=== PATIENT | male | born 1955 | race Caucasian/White ===

== ENCOUNTER 2021-08-07 11:51 | Inpatient (IN) ==
--- NOTE | 2021-08-07 13:20 | Emergency Department Note ---
HPI General Chief complaint: Extremity Problem,Nontraumatic Stated complaint: right heel pain Time Seen by Provider: 08/07/21 12:01 Source: patient Mode of arrival: wheelchair Limitations: no limitations History of Present Illness HPI Narrative: 66-year-old male with past medical history of lung cancer and hypertension presenting with right ankle pain and swelling. He states over the last 3 days he has noted pain in his right heel area and swelling around his right ankle with worsening redness. Denies any trauma or injury. Denies any history of diabetes. No numbness, weakness, or paresthesias. Denies any prior history of DVT or PE. No fever, cough, chest pain, or shortness of breath. Not on anticoagulation. Related Data Home Medications Medication Instructions Recorded Confirmed cholecalciferol (vitamin D3) 50 2,000 unit PO QDAY 06/23/19 06/14/21 mcg (2,000 unit) capsule multivitamin,[id number] 1 tab PO QDAY 06/23/19 06/14/21 (Complete Multivitamin) atorvastatin 20 mg tablet 60 mg PO QDAY tab 07/25/20 04/17/21 lorlatinib 100 mg tablet 100 mg PO QDAY 07/25/20 06/14/21 atorvastatin 20 mg tablet 20 mg PO QDAY 04/17/21 04/17/21 atorvastatin 40 mg tablet 40 mg PO QDAY tab 04/17/21 04/17/21 Previous Rx's Medication Instructions Recorded fluticasone propionate 50 1 spray INTRANASAL QDAY #18.2 ml 10/07/19 mcg/actuation nasal spray,suspension (Flonase Allergy Relief) hydrochlorothiazide 12.5 mg tablet 12.5 mg PO QDAY #90 tab 02/27/21 furosemide 20 mg tablet 20 mg PO QAM #60 tab 03/30/21 albuterol sulfate 90 mcg/actuation 2 puff INHALATION Q6H PRN #8.5 g 04/17/21 aerosol inhaler Allergies Allergy/AdvReac Type Severity Reaction Status Date / Time No Known Drug Allergies Allergy Verified 08/07/21 11:52 Review of Systems ROS ROS Narrative: Narrative: Constitutional: Denies fever or chills ENT ED: Denies throat pain Cardiovascular: Denies chest pain or palpitations Respiratory: Denies shortness of breath or cough Gastrointestinal: Denies abdominal pain, nausea or vomiting Genitourinary: Denies dysuria or frequency Musculoskeletal: Reports joint swelling and joint pain; Denies back pain Integumentary: Reports as per HPI Neurological: Denies headache Psychiatric: Denies anxiety Endocrine: Denies fatigue Hematological/Lymphatic: Denies easy bleeding PFSH Narrative Patient History Narrative: Narrative: Medical/Surgical/Family History All Active Problems (Updated 08/07/21 @ 16:48 by José Miguel Vidal MD) Cellulitis of right foot (Acute) Left ankle pain (Acute) SVT (supraventricular tachycardia) (Acute) Cellulitis (Acute) Lower extremity edema (Acute) Paralyzed hemidiaphragm (Chronic) Non-small cell lung cancer (Chronic) Supraventricular tachycardia (Acute) Prediabetes (Chronic) Lung cancer (Chronic) Neck pain (Acute) Pain, dental (Acute) Wellness examination (Chronic) Constipation (Chronic) Insomnia (Chronic) Cancer related pain (Chronic) History of tobacco use (Chronic) Joint pain (Chronic) Hypertension, essential (Chronic) Depression (Chronic ~2015) Anxiety (Chronic ~12/2015) Fatigue (Acute) Superior vena cava syndrome (Acute) Medical History Adenocarcinoma of lung Anxiety (~12/2015) Cancer related pain Cellulitis Depression (~2015) Fatigue History of tobacco use Hypertension, essential Joint pain Left ankle pain Lower extremity edema Lung cancer Neck pain Non-small cell lung cancer Paralyzed hemidiaphragm Right Prediabetes Superior vena cava syndrome Wellness examination 06/17/17 Surgical History H/O eye surgery (~1983) H/O knee surgery (~1974) History of surgery (~2008) Blood Poisoning History of surgery 2016 stent per patient. Family History Father Arthritis Diabetes Emphysema/COPD Kidney replaced by transplant Grandmother Arthritis Paternal Grandfather Diabetes Maternal Social History Smoking Status: Never smoker Alcohol Intake Frequency: does not drink Substance Use: former substance user, marijuana and amphetamines Exam Narrative Narrative: Narrative: General Limitations: no limitations General appearance: Present alert and in no apparent distress Head Head: Present atraumatic and normocephalic Eye Eye: Present other (Left eye blindness; right eye extraocular movements intact); Absent scleral icterus or conjunctival injection ENT ENT: Present mucous membranes moist Neck Neck: Present normal inspection, full ROM and trachea midline Chest Chest: Present symmetric chest wall rise Respiratory Respiratory: Present normal lung sounds bilaterally; Absent respiratory dis tress, wheezes, stridor or accessory muscle use Cardiovascular Cardiovascular: Present regular rate and normal rhythm; Absent systolic murmur or diastolic murmur Adbominal Abdominal: Present soft; Absent distention, tenderness, guarding, rebound or rigidity Extremities Extremities: Present other (Swelling, erythema, and warmth of the right posterior foot and right ankle; 2+ DP pulse, distal sensation intact; pain with passive dorsiflexion of the right ankle) Back Back: Present normal inspection Neurological Neurological: Present alert and oriented X3 Psychiatric Psychiatric: Present normal affect and normal mood Skin Skin: Present warm (WNL) and dry Course Consultations Consultation #1: Dr. Simeon, orthopedics Time: 16:00 Consultation #2: Dr. Doherty, hospitalist Time: 16:30 Vital Signs Vital signs: Vital Signs Temperature 98.8 F 08/07/21 11:52 Pulse Rate 118 H 08/07/21 11:52 Respiratory Rate 20 08/07/21 11:52 Blood Pressure 144/80 08/07/21 11:52 Pulse Oximetry (%) 91 08/07/21 11:52 Temperature 98.8 F 08/07/21 11:55 Pulse Rate 116 H 08/07/21 16:32 Respiratory Rate 18 08/07/21 16:07 Blood Pressure 164/98 08/07/21 16:32 Pulse Oximetry (%) 91 08/07/21 16:32 [facility] MDM Narrative Medical decision making narrative: 66-year-old male presenting with right foot and ankle swelling. No recent trauma. Exam concerning for cellulitis versus DVT. Neurovascularly intact. Will obtain labs, x-ray, and duplex ultrasound. Ultrasound shows no evidence of DVT however there is distention of the posterior tibial tendon with fluid, possibly representing tenosynovitis. X-ray shows a small intra-articular chip fracture along the anterior distal talus. Labs notable for a white blood cell count of 13.3 and CRP of 25.9. Blood cultures drawn. IV vancomycin and Rocephin ordered. I discussed patient with Dr. Simeon orthopedics and Dr. Doherty, the admitting hospitalist. Lab Data Lab results reviewed: Yes I reviewed the patient's lab results. Result diagrams: 08/07/21 13:51 08/07/21 13:51 Labs: Lab Results 08/07/21 08/07/21 Range/Units 13:51 13:51 WBC 13.3 H (4.5-11.0) K/mcL RBC 4.54 L (4.63-6.08) M/mcL Hgb 12.4 L (13.7-17.5) g/dL Hct 38.5 L (40.1-51.0) % MCV 84.8 (80.0-100.0) fL MCH 27.3 (26.0-34.0) pg MCHC 32.2 (31.0-36.0) g/dL RDW 16.3 H (11.5-14.5) % Plt Count 193 (140-440) K/mcL MPV 10.0 (7.4-10.4) fL Neut % (Auto) 73.3 (38.0-78.0) % Lymph % (Auto) 10.1 L (15.5-49.0) % [place] % (Auto) 15.5 H (1.0-12.0) % Eos % (Auto) 0.6 (0.0-7.0) % Baso % (Auto) 0.5 (0.0-2.0) % Lymph # (Auto) 1.35 L (1.50-4.80) K/mcL [place] # (Auto) 2.06 H (0.10-0.90) K/mcL Eos # (Auto) 0.08 (0.00-0.70) K/mcL Baso # (Auto) 0.06 (0.00-0.30) K/mcL Absolute Neutrophils 9.77 H (1.80-8.00) K/mcL Sodium 133 (133-145) mmol/L Potassium 4.1 (3.3-5.1) mmol/L Chloride 93 L (96-108) mmol/L Carbon Dioxide 25 (22-30) mmol/L Anion Gap 15.0 (8.0-16.0) BUN 24 H (8-23) mg/dL Creatinine 1.0 (0.7-1.2) mg/dL GFR Calculation 79 Glucose 124 H (70-105) mg/dL Calcium 9.0 (8.6-10.4) mg/dL Total Bilirubin 0.5 (0.1-1.0) mg/dL AST 23 (<40) U/L ALT 17 (<40) U/L Alkaline Phosphatase 91 (39-117) U/L C-Reactive Protein 25.90 H (0.03-0.80) mg/dL Total Protein 8.5 H (5.9-8.4) gm/dL Albumin 3.8 (3.2-5.2) gm/dL Globulin 4.7 H (2.2-3.7) gm/dL Albumin/Globulin Ratio 0.8 L (1.0-2.3) Radiology Data Radiology results reviewed: Yes I reviewed the patient's radiology results. Radiology results narrative: Ordering Physician:José Miguel Vidal M.D. Date of Service:08/07/21 Procedure(s):US venous duplex LE RT History: Right leg pain and swelling FINDINGS: There is normal augmentation and compressibility in the deep veins and saphenous vein in the right leg from the groin through the calf. Doppler shows normal waveform patterns. Along the medial side of the ankle there is inflammation. The posterior tibial tendon is intact but the tendon sheath is distended with fluid. Doppler shows no abnormal increased blood flow in or adjacent to the tendon. IMPRESSION: Tenosynovitis along the medial side of the ankle involving the posterior tibial tendon. No evidence of deep venous thrombosis Interpreted and Authenticated by: Vadim Bryant 08/07/21 Ordering Physician:José Miguel Vidal M.D. Date of Service:08/07/21 Procedure(s):XR ankle RT complete 3VW HISTORY: Right ankle pain and swelling, right heel pain FINDINGS: Moderate soft tissue swelling surrounds the ankle. There is also a moderate size joint effusion. On the lateral view a 3 x 4 mm bone fragment is seen along the anterior articular margin of the distal tibia. The joint space is normal in width. The talus is normal. Calcaneus is normal without evidence of spur fracture or bone erosion. IMPRESSION: Small intra-articular chip fracture along the anterior border of the distal talus with an associated joint effusion Interpreted and Authenticated by: Vadim Bryant 08/07/21 Discharge Plan Patient/Caregiver Discharge Instructions Pt seen by TARIFF INSPECTOR/PA only: No Clinical Impression: Cellulitis of right foot Patient Disposition: Xfer As Inpt ([facility]) Follow up with: Parul Bernardo, DO [Primary Care Provider] - Prescriptions: No Action hydrochlorothiazide 12.5 mg tablet 12.5 mg tablet 12.5 mg PO QDAY Qty: 90 1RF furosemide 20 mg tablet 20 mg PO QAM Qty: 60 3RF fluticasone propionate [Flonase Allergy Relief] 50 mcg/actuation spray,suspension 1 spray INTRANASAL QDAY Qty: 18.2 4RF Rx Instructions: administer into each nostril lorlatinib 100 mg tablet 100 mg PO QDAY 0RF atorvastatin 20 mg tablet 60 mg PO QDAY 0RF cholecalciferol (vitamin D3) 2,000 unit capsule 2,000 unit PO QDAY 0RF Complete Multivitamin tablet 1 tab PO QDAY 0RF atorvastatin 40 mg tablet 40 mg PO QDAY 0RF Label Comments: TAKE ONE TABLET BY MOUTH EVERY DAY along with THE 20mg TABLET FOR A total DO SE of 60mg atorvastatin 20 mg tablet 20 mg PO QDAY 0RF albuterol sulfate 90 mcg/actuation HFA aerosol inhaler 2 puff inhalation Q6H PRN (Reason: shortness of breath or wheezing) Qty: 8.5 2RF
--- NOTE | 2021-08-07 14:39 | Ultrasound Report ---
History: Right leg pain and swelling FINDINGS: There is normal augmentation and compressibility in the deep veins and saphenous vein in the right leg from the groin through the calf. Doppler shows normal waveform patterns. Along the medial side of the ankle there is inflammation. The posterior tibial tendon is intact but the tendon sheath is distended with fluid. Doppler shows no abnormal increased blood flow in or adjacent to the tendon. IMPRESSION: Tenosynovitis along the medial side of the ankle involving the posterior tibial tendon. No evidence of deep venous thrombosis Interpreted and Authenticated by: Vadim Bryant 08/07/21
[2021-08-07] MEDS ORDERED: morphine 4 MG/ML VIAL IV ONE (14:41)
[2021-08-07 14:55] LABS: Basophils # (Auto) 0.06 K/mcL (0.00-0.30); Basophils % (Auto) 0.5 % (0.0-2.0); Eosinophils # (Auto) 0.08 K/mcL (0.00-0.70); Eosinophils % (Auto) 0.6 % (0.0-7.0); Hematocrit 38.5 % (40.1-51.0); Hemoglobin 12.4 g/dL (13.7-17.5); Lymphocytes # (Auto) 1.35 K/mcL (1.50-4.80); Lymphocytes % (Auto) 10.1 % (15.5-49.0); Mean Cell Volume 84.8 fL (80.0-100.0); Mean Corpuscular HGB Conc 32.2 g/dL (31.0-36.0); Monocytes # (Auto) 2.06 K/mcL (0.10-0.90); Monocytes % (Auto) 15.5 % (1.0-12.0); Neutrophils % (Auto) 73.3 % (38.0-78.0); Platelet Count 193 K/mcL (140-440); RBC 4.54 M/mcL (4.63-6.08); Red Cell Distribution Width 16.3 % (11.5-14.5); WBC 13.3 K/mcL (4.5-11.0)
--- NOTE | 2021-08-07 15:19 | XRay Report ---
HISTORY: Right ankle pain and swelling, right heel pain FINDINGS: Moderate soft tissue swelling surrounds the ankle. There is also a moderate size joint effusion. On the lateral view a 3 x 4 mm bone fragment is seen along the anterior articular margin of the distal tibia. The joint space is normal in width. The talus is normal. Calcaneus is normal without evidence of spur fracture or bone erosion. IMPRESSION: Small intra-articular chip fracture along the anterior border of the distal talus with an associated joint effusion Interpreted and Authenticated by: Vadim Bryant 08/07/21
[2021-08-07 15:48] LABS: ALT/SGPT 17 U/L (<40); AST/SGOT 23 U/L (<40); Albumin 3.8 gm/dL (3.2-5.2); Albumin/Globulin Ratio 0.8 (1.0-2.3); Alkaline Phosphatase 91 U/L (39-117); Bilirubin,Total 0.5 mg/dL (0.1-1.0); Blood Urea Nitrogen 24 mg/dL (8-23); Carbon Dioxide 25 mmol/L (22-30); Chloride 93 mmol/L (96-108); Globulin 4.7 gm/dL (2.2-3.7); Glomerular Filtration Rate 79; Glucose 124 mg/dL (70-105)
[2021-08-07] MEDS ORDERED: VANCOMYCIN 1,500 MG in 0.9 % SODIUM CHLORIDE 500 ML IV ONE (16:23)
[2021-08-07] MEDS ORDERED: cefTRIAXone 1 GM VIAL IV ONE (16:23)
--- NOTE | 2021-08-07 16:49 | Internal Med History&Physical ---
HPI History of Present Illness Patient information: Note initiated : 08/07/21 at 4:43 pm Service Date, if different from initiated Date: [] Patient: Blake Bates a 66 y/o M admitted on for right heel pain. Chief Complaint: [] History of present illness: Mr. Bates is a 66 year old M Reports increasing redness pain and swelling to his right ankle since Saturday. No reported injury. Unable to walk on it at this point. No fevers and chills. In the ED he is tachycardic blood pressure stable, leukocytosis. CRP quite elevated. Ultrasound and x-ray were done of the ankle leg showed no DVT but likely tenosynovitis along the medial side of the ankle. On examination appear to be cellulitic. Case discussed with Dr. Simeon who felt no immediate need for joint aspiration and to treat with IV antibiotics. Review of Systems: Pertinent positives as above plus chronic shortness of breath. Denies headache/fever/chills/nausea/vomiting/chest or abdominal pain/diarrhea. Remaining 10 point review of system reviewed negative PFSH PFSH All Active Problems (Updated 08/07/21 @ 16:48 by José Miguel Vidal MD) Cellulitis of right foot (Acute) Left ankle pain (Acute) SVT (supraventricular tachycardia) (Acute) Cellulitis (Acute) Lower extremity edema (Acute) Paralyzed hemidiaphragm (Chronic) Non-small cell lung cancer (Chronic) Supraventricular tachycardia (Acute) Prediabetes (Chronic) Lung cancer (Chronic) Neck pain (Acute) Pain, dental (Acute) Wellness examination (Chronic) Constipation (Chronic) Insomnia (Chronic) Cancer related pain (Chronic) History of tobacco use (Chronic) Joint pain (Chronic) Hypertension, essential (Chronic) Depression (Chronic ~2015) Anxiety (Chronic ~12/2015) Fatigue (Acute) Superior vena cava syndrome (Acute) Medical History Adenocarcinoma of lung Anxiety (~12/2015) Cancer related pain Cellulitis Depression (~2015) Fatigue History of tobacco use Hypertension, essential Joint pain Left ankle pain Lower extremity edema Lung cancer Neck pain Non-small cell lung cancer Paralyzed hemidiaphragm Right Prediabetes Superior vena cava syndrome Wellness examination 06/17/17 Surgical History H/O eye surgery (~1983) H/O knee surgery (~1974) History of surgery (~2008) Blood Poisoning History of surgery 2016 stent per patient. Family History Father Arthritis Diabetes Emphysema/COPD Kidney replaced by transplant Grandmother Arthritis Paternal Grandfather Diabetes Maternal Social History marital status: single alcohol intake frequency: does not drink substance use type: former substance user, marijuana and amphetamines MEDS/ALLERGIES Home Medications and Allergies Home Medications Medication Instructions Recorded Confirmed Type cholecalciferol (vitamin D3) 50 2,000 unit PO QDAY 06/23/19 06/14/21 History mcg (2,000 unit) capsule multivitamin,[id number] 1 tab PO QDAY 06/23/19 06/14/21 History (Complete Multivitamin) fluticasone propionate 50 1 spray INTRANASAL QDAY #18.2 ml 10/07/19 04/17/21 Rx mcg/actuation nasal spray,suspension (Flonase Allergy Relief) atorvastatin 20 mg tablet 60 mg PO QDAY tab 07/25/20 04/17/21 History lorlatinib 100 mg tablet 100 mg PO QDAY 07/25/20 06/14/21 History hydrochlorothiazide 12.5 mg tablet 12.5 mg PO QDAY #90 tab 02/27/21 06/14/21 Rx furosemide 20 mg tablet 20 mg PO QAM #60 tab 03/30/21 06/14/21 Rx albuterol sulfate 90 mcg/actuation 2 puff INHALATION Q6H PRN #8.5 g 04/17/21 06/14/21 Rx aerosol inhaler atorvastatin 20 mg tablet 20 mg PO QDAY 04/17/21 04/17/21 History atorvastatin 40 mg tablet 40 mg PO QDAY tab 04/17/21 04/17/21 History Allergies Allergy/AdvReac Type Severity Reaction Status Date / Time No Known Drug Allergies Allergy Verified 08/07/21 11:52 EXAM Constitutional Vitals: Temp Pulse Resp BP Pulse Ox 98.8 F 116 H 18 164/98 91 08/07/21 11:55 08/07/21 16:32 08/07/21 16:07 08/07/21 16:32 08/07/21 16:32 Exam: General: Alert, Awake, No acute Distress Eyes/N/T: EOMI, PERRL, MM Head/Neck: neck supple, normocephalic atraumatic CV: RRR, No murmurs, normal s1/s2 Pulm: Clear b/l, no wheezing/rhonchi/rales Abd: soft, nontender, +BS x4 Ext: no clubbing/cyanosis/edema LLE. RLE edema 1+ & ankle erythema primarily medial and lateral malleoli area with swelling and tenderness to palpation and tenderness to range of motion. Neuro: Alert, no focal deficits, moves all extremities, CN 2-12 grossly intact, symmetrical strength b/l upper/lower, sensations intact b/l upper/lower Skin: warm/dry DATA Data Completed and Pending Labs: Labs from last 24 hours 08/07/21 08/07/21 13:51 13:51 WBC 13.3 H RBC 4.54 L Hgb 12.4 L Hct 38.5 L MCV 84.8 MCH 27.3 MCHC 32.2 RDW 16.3 H Plt Count 193 MPV 10.0 Neut % (Auto) 73.3 Lymph % (Auto) 10.1 L [place] % (Auto) 15.5 H Eos % (Auto) 0.6 Baso % (Auto) 0.5 Lymph # (Auto) 1.35 L [place] # (Auto) 2.06 H Eos # (Auto) 0.08 Baso # (Auto) 0.06 Absolute Neutrophils 9.77 H Sodium 133 Potassium 4.1 Chloride 93 L Carbon Dioxide 25 Anion Gap 15.0 BUN 24 H Creatinine 1.0 GFR Calculation 79 Glucose 124 H Calcium 9.0 Total Bilirubin 0.5 AST 23 ALT 17 Alkaline Phosphatase 91 C-Reactive Protein 25.90 H Total Protein 8.5 H Albumin 3.8 Globulin 4.7 H Albumin/Globulin Ratio 0.8 L A/P Narrative A/P Narrative: A: *Right ankle cellulitis: -Case discussed with orthopedic surgery in ED > felt no need for arthrocentesis at this time *SIRS: 2/2 above *h/o metastatic NSCLC: follows with mamadou *DM: diet controlled *HTN: *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
[2021-08-07] MEDS ORDERED: POTASSIUM CHLORIDE 20 MEQ TABLET PO PRN ×2 (18:05)
[2021-08-07] MEDS ORDERED: METOCLOPRAMIDE 10 MG/2 ML VIAL IV PRN (18:05)
[2021-08-07] MEDS ORDERED: SENNOSIDES 1 TABLET PO PRN (18:05)
[2021-08-07] MEDS ORDERED: DEXTROSE 31 GM ORAL.SUSP PO PRN (18:05)
[2021-08-07] MEDS ORDERED: MAGNESIUM SULFATE 2 GM/50 ML BAG IV PRN (18:05)
[2021-08-07] MEDS ORDERED: 0.9 % SODIUM CHLORIDE 1,000 ML IV SCH (18:05)
[2021-08-07] MEDS ORDERED: DEXTROSE 50% 50 ML VIAL IV PRN (18:05)
[2021-08-07] MEDS ORDERED: ONDANSETRON 4 MG/2 ML VIAL IV PRN (18:05)
[2021-08-07] MEDS ORDERED: POTASSIUM CHLORIDE 40 MEQ in DEXTROSE 5% IN WATER 500 ML IV PRN (18:05)
[2021-08-07] MEDS: morphine 4 MG/ML VIAL IV PRN (18:37)
[2021-08-07 19:13] LABS: Hemoglobin A1C 6.4 % Hgb (4.0-6.0)
[2021-08-07] MEDS: INSULIN LISPRO 1 UNIT/0.01 ML UNIT SQ SCH ×2 (20:37→20:38)
[2021-08-07] MEDS: DOCUSATE SODIUM 100 MG CAPSULE PO SCH (20:38)
[2021-08-07] MEDS: HYDROcodone/APAP 5/325MG TABLET PO PRN (20:38)
[2021-08-07] MEDS: 0.9 % SODIUM CHLORIDE 10 ML SYRINGE IV SCH (20:45)
[2021-08-07] MEDS ORDERED: CLINDAMYCIN 600 MG/4 ML VIAL ONE (20:53)
[2021-08-07] MEDS: CLINDAMYCIN 600 MG in DEXTROSE 5% IN WATER 50 ML IV SCH (21:36)
[2021-08-08] MEDS: morphine 4 MG/ML VIAL IV PRN (00:15)
[2021-08-08] MEDS: HYDROcodone/APAP 5/325MG TABLET PO PRN ×2 (02:49→10:06)
[2021-08-08] MEDS: ACETAMINOPHEN 325 MG TABLET PO PRN (02:55)
[2021-08-08] MEDS: CLINDAMYCIN 600 MG in DEXTROSE 5% IN WATER 50 ML IV SCH ×3 (04:07→20:18)
[2021-08-08] MEDS ORDERED: CLINDAMYCIN 600 MG/4 ML VIAL ONE (04:07)
[2021-08-08] MEDS: 0.9 % SODIUM CHLORIDE 10 ML SYRINGE IV SCH ×3 (04:08→21:02)
[2021-08-08] MEDS: IPRATROPIUM/ALBUTEROL 3 ML AMPUL.NEB NEB PRN ×2 (07:30→13:05)
[2021-08-08 07:41] LABS: Hematocrit 38.7 % (40.1-51.0); Hemoglobin 11.9 g/dL (13.7-17.5); Mean Corpuscular HGB Conc 30.7 g/dL (31.0-36.0); Mean Platelet Volume 10.4 fL (7.4-10.4); Platelet Count 212 K/mcL (140-440); RBC 4.45 M/mcL (4.63-6.08); Red Cell Distribution Width 16.5 % (11.5-14.5); WBC 12.9 K/mcL (4.5-11.0)
--- NOTE | 2021-08-08 07:49 | Internal Med Progress Note ---
SUBJECTIVE Subjective Patient information: Note initiated : 08/08/21 at 7:44 am Service Date, if different from initiated Date: [] Patient: Blake Bates a 66 y/o M admitted on 08/07/21 for right heel pain. Chief Complaint: [] Interval history: History of present illness: Mr. Bates is a 66 year old M Reports increasing redness pain and swelling to his right ankle since Saturday. No reported injury. Unable to walk on it at this point. No fevers and chills. In the ED he is tachycardic blood pressure stable, leukocytosis. CRP quite elevated. Ultrasound and x-ray were done of the ankle leg showed no DVT but likely tenosynovitis along the medial side of the ankle. On examination appear to be cellulitic. Case discussed with Dr. Simeon who felt no immediate need for joint aspiration and to treat with IV antibiotics. 08/08 Patient feels his ankle is a little bit less painful but still significant pain with any movement. Did have a fever overnight and some sweating. No other new complaints. Review of Systems: denies headache/fever/chills/nausea/vomiting/chest or abdominal pain/cough/dyspnea/diarrhea. Otherwise see above. Constitutional Vitals: Vital Signs Temp Pulse Resp BP Pulse Ox 99.1 F H 120 H 18 114/67 82 L 08/08/21 04:00 08/08/21 07:33 08/08/21 07:33 08/08/21 02:52 08/08/21 07:33 Period Temp Pulse Resp BP Sys/Virgen Pulse Ox Last 24 Hr 97.3 F-101.4 F 85-126 16-24 114-187/67-146 82-98 Intake and Output 08/07/21 08/08/21 08/08/21 21:59 05:59 13:59 Intake Total 500 658 Output Total 325 650 Balance 175 8 Weight 90.401 kg Intake & Output: Intake & Output 08/07/21 08/08/21 08/08/21 21:59 05:59 13:59 Intake Total 500 658 Output Total 325 650 Balance 175 8 Weight 90.401 kg Intake: IV 500 108 Cleocin 600 mg In Dextrose 5% 108 in Water 50 ml @ 100 mls/hr IV Q8H [facility] Rx#:[id number] Vancomycin 1,500 mg In Sodium 500 Chloride 0.9% 500 ml @ 333.3 mls/hr IV ONCE ONE Rx#: [id number] Oral 550 Output: Void Amount 325 650 Other: Meal Egg salad sandwich Percent of Meal Consumed 100% Feeding Ability Independent Urine Appearance Clear Clear Urine Color Dark Yellow Bright Yellow Urine Odor Strong Exam: General: Alert, Awake, No acute Distress Eyes/N/T: EOMI, Head/Neck: neck supple, CV: RRR, No murmurs, Pulm: Clear b/l, no wheezing/rhonchi/rales Abd: soft, nontender, +BS x4 Ext: no clubbing/cyanosis/edema LLE. RLE edema 1+ & ankle erythema primarily medial and lateral malleoli area with swelling and tenderness to palpation and tenderness to range of motion - similar to yesterday Neuro: Alert, no focal deficits, moves all extremities, Skin: warm/dry OBJ DATA Labs CBC & Chem 7: 08/08/21 05:23 08/08/21 05:23 Labs: Abnormal Lab Results 08/08/21 08/07/21 08/07/21 05:23 13:51 13:51 WBC 12.9 H RBC 4.45 L Hgb 11.9 L Hct 38.7 L MCHC 30.7 L RDW 16.5 H Lymph % (Auto) [place] % (Auto) Lymph # (Auto) [place] # (Auto) Absolute Neutrophils Chloride 93 L BUN 24 H Glucose 124 H Hemoglobin A1c 6.4 H C-Reactive Protein 25.90 H Total Protein 8.5 H Globulin 4.7 H Albumin/Globulin Ratio 0.8 L 08/07/21 13:51 WBC 13.3 H RBC 4.54 L Hgb 12.4 L Hct 38.5 L MCHC RDW 16.3 H Lymph % (Auto) 10.1 L [place] % (Auto) 15.5 H Lymph # (Auto) 1.35 L [place] # (Auto) 2.06 H Absolute Neutrophils 9.77 H Chloride BUN Glucose Hemoglobin A1c C-Reactive Protein Total Protein Globulin Albumin/Globulin Ratio Meds: Medications Acetaminophen (Acetaminophen 325 Mg Tablet) 650 mg PO Q6HP PRN; Protocol PRN Reason: Per Pain Protocol/Fever > 101 Last Admin: 08/08/21 02:55 Dose: 650 mg Documented by: Hydrocodone Bitart/Acetaminophen (Hydrocodone/Apap 5/325mg Tablet) 1 tab PO Q4HP PRN PRN Reason: PAIN LEVEL 3-6 Last Admin: 08/08/21 02:49 Dose: 1 tab Documented by: Albuterol/Ipratropium (Ipratropium/Albuterol 3 Ml Ampul.Neb) 3 ml NEB Q4HP PRN PRN Reason: Shortness Of Breath Last Admin: 08/08/21 07:30 Dose: 3 ml Documented by: Dextrose (Dextrose 50% 50 Ml Vial) 0 ml IV UD PRN PRN Reason: Hypoglycemia Diagnostic Test (Pha) (Accu-Chek 1 Each Strip) 1 each FS [facility] Last Admin: 08/07/21 20:37 Dose: 1 each Documented by: Docusate Sodium (Docusate Sodium 100 Mg Capsule) 100 mg PO BID [facility] Last Admin: 08/07/21 20:38 Dose: 100 mg Documented by: Glucose (Dextrose 31 Gm Oral.Susp) 15 gm PO PRN PRN PRN Reason: Hypoglycemia Potassium Chloride 40 meq/ (Dextrose) 520 mls @ 130 mls/hr IV UD PRN PRN Reason: Potassium < 3 Magnesium Sulfate (Magnesium Sulfate) 2 gm in 50 mls @ 50 mls/hr IV UD PRN PRN Reason: Magnesium </= 1.6 Ceftriaxone Sodium 2 gm/ (Dextrose) 50 mls @ 100 mls/hr IV Q24H [facility]; Protocol Clindamycin Phosphate 600 mg/ (Dextrose) 54 mls @ 100 mls/hr IV Q8H [facility]; Protocol Stop: 08/09/21 11:33 Last Infusion: 08/08/21 04:40 Dose: Infused Documented by: Insulin Human Lispro (Insulin Lispro 1 Unit/0.01 Ml Unit) 0 unit SQ [facility]; Protocol Last Admin: 08/07/21 20:38 Dose: Not Given Documented by: Labetalol HCl (Labetalol 5 Mg/Ml Ml) 0 mg IV Q2HP PRN PRN Reason: Hypertension Metoclopramide HCl (Metoclopramide 10 Mg/2 Ml Vial) 10 mg IV Q6HP PRN PRN Reason: Nausea And Vomiting Morphine Sulfate (Morphine 4 Mg/Ml Vial) 0 mg IV Q3HP PRN PRN Reason: Pain Last Admin: 08/08/21 00:15 Dose: 3 mg Documented by: Ondansetron HCl (Ondansetron 4 Mg/2 Ml Vial) 4 mg IV Q4HP PRN PRN Reason: Nausea And Vomiting Polyethylene Glycol (Polyethylene Glycol 3350 17 Gm Packet) 17 gm PO DAILYP PRN PRN Reason: Constipation Potassium Chloride (Potassium Chloride 20 Meq Tablet) 40 meq PO UD PRN PRN Reason: Potssium is 3-3.5 Potassium Chloride (Potassium Chloride 20 Meq Tablet) 40 meq PO UD PRN PRN Reason: Potassium < 3 Senna (Sennosides 1 Tablet) 2 tab PO DAILYP PRN PRN Reason: Constipation Sodium Chloride (0.9 % Sodium Chloride 10 Ml Syringe) 10 ml IV Q8 [facility] Last Admin: 08/08/21 04:08 Dose: Not Given Documented by: A/P Narrative A/P Narrative: A: *Right ankle cellulitis: -Case discussed with orthopedic surgery in ED > felt no need for arthrocentesis at this time *SIRS: 2/2 above -febrile o/n -leukocytosis similar to yesterday *h/o metastatic NSCLC: follows with mamadou *DM: diet controlled *HTN: *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
[2021-08-08 08:05] LABS: ALT/SGPT 17 U/L (<40); AST/SGOT 22 U/L (<40); Albumin 3.5 gm/dL (3.2-5.2); Albumin/Globulin Ratio 0.7 (1.0-2.3); Alkaline Phosphatase 117 U/L (39-117); Bilirubin,Direct 0.3 mg/dL (<0.3); Bilirubin,Total 0.5 mg/dL (0.1-1.0); Blood Urea Nitrogen 20 mg/dL (8-23); Carbon Dioxide 23 mmol/L (22-30); Chloride 93 mmol/L (96-108); Globulin 4.7 gm/dL (2.2-3.7); Glomerular Filtration Rate 70; Glucose 114 mg/dL (70-105); Lactate Dehydrogenase 204 U/L (135-225); Phosphorous 3.2 mg/dL (2.5-4.5); Triglycerides 89 mg/dL (<150); Uric Acid 5.5 mg/dL (2.5-8.0)
[2021-08-08] MEDS: ATORVASTATIN 20 MG TABLET PO SCH (08:27)
[2021-08-08] MEDS: DOCUSATE SODIUM 100 MG CAPSULE PO SCH ×2 (08:27→20:52)
[2021-08-08] MEDS: cefTRIAXone 2 GM in DEXTROSE 5% IN WATER 50 ML IV SCH (08:28)
[2021-08-08] MEDS: [UNRECOGNIZED DRUG - OTHER] PO SCH (08:28)
[2021-08-08] MEDS: INSULIN LISPRO 1 UNIT/0.01 ML UNIT SQ SCH ×4 (08:34→21:13)
[2021-08-08] MEDS ORDERED: FUROSEMIDE 40 MG/4 ML VIAL IV ONE (08:37)
[2021-08-08 08:47] LABS: Anisocytosis 1+ (None Seen); Lymphocytes % 10 % (15-49); Monocytes % (Manual) 18 % (1-12); Platelet Estimate NORMAL (Normal); Polychromasia FEW (None Seen); RBC Morphology ABNORMAL (Normal); Reactive Lymphocytes 1 % (0-2); Segmented Neutrophils % 71 % (38-78)
[2021-08-08] MEDS ORDERED: FUROSEMIDE 20 MG TABLET PO SCH (09:00)
[2021-08-08 12:44] LABS: Amphetamine Screen,Urine Suspect positive; Barbiturate Screen,Urine None detected; Benzodiazepines Screen,Urine None detected; Cannabinoid Screen,Urine Suspect Positive; Cocaine Screen,Urine None detected; Opiate Screen,Urine Suspect Positive; Oxycodone, Urine Screen None detected; Phencyclidine Screen,Urine None detected
[2021-08-08] MEDS ORDERED: LORazepam 2 MG/ML VIAL IV PRN ×2 (13:02→15:24)
--- NOTE | 2021-08-08 16:06 | Consultation ---
DATE OF CONSULTATION: 08/08/2021 REASON FOR CONSULTATION: Right ankle pain, concern for septic joint. HISTORY OF PRESENT ILLNESS: The patient is a 66-year-old male who presented yesterday to the ER complaining of increasing pain in his right lower extremity. He had erythema and warmth about the ankle itself. He underwent a DVT study, which was negative. He subsequently had an ultrasound by the emergency room provider with some findings of fluid within the flexor sheath, and at that time he was admitted by the hospitalist for cellulitis. However, overnight he spiked a fever. Subsequently, Orthopedics was consulted for concern for septic joint. On presentation, he had just had Ativan. He is not really alert or oriented, and minimally conversant. PAST MEDICAL HISTORY: Supraventricular tachycardia, hemidiaphragm paralysis, lung cancer, depression, anxiety, use of tobacco products. PAST SURGICAL HISTORY: History of eye and knee surgery, stent placement per patient in 2016. SOCIAL HISTORY: He reports he lives locally in the [place], is not , does not drink, uses methamphetamines and marijuana. REVIEW OF SYSTEMS: Not really obtained but reviewed from the chart. He has had fevers here and increasing pain. PHYSICAL EXAMINATION: VITALS: He is currently afebrile with a temperature of 98.8, heart rate has been tachycardic in the one-teens, blood pressure is stable 116/61, saturating 92% on nasal cannula. GENERAL: He is a bit sleepy, does respond to painful stimuli; however, minimally conversant secondary to Ativan. EXTREMITIES: Right lower extremity reveals that his skin is intact. However, his knee has significant callus over the anterior aspect of it. He has callus about his heel as well as his toe region. There is no violette opening that is appreciated, lacerations, abrasions, or cuts. He does have significant swelling and increased warmth compared to the contralateral side. He has erythema both on the medial and lateral aspect of the ankle primarily. There is minimal anterior ankle. With any motion, he has significant pain response to ankle dorsiflexion, plantarflexion in pain. Otherwise, his foot is warm and well perfused. IMAGING: X-rays did not demonstrate any fractures. He does have what appears to be a bit of anterior ankle comminution that is likely old from prior injury. There is no moth-eaten or concern for osteomyelitis. Joint spaces are maintained with normal anatomy. LABORATORY DATA: He has a urine drug screen which is positive for methamphetamines and marijuana. He has a CBC with a white count of 12.9, hemoglobin and hematocrit 11.9 and 38.7, platelets 212. CRP is 42 (increased from yesterday). Hemoglobin A1c is 6.4, creatinine is 1. ASSESSMENT AND PLAN: This is a 66-year-old drug user with increasing right ankle pain. He has been on dual therapy antibiotics currently. He was febrile overnight. Given continued pain and significant pain with any range of motion of the joint, my recommendation was for ankle aspiration. The patient did agree somewhat through his Ativan. Given that it was sterilely prepped, underneath small fluoroscopy and medial to the anterior tibialis tendon at the level of the medial gutter, 18-gauge needle was utilized to aspirate the joint with return of violette purulence. This was then sent for culture. The area was cleaned and a Band-Aid was applied. At this point, my recommendation is to perform irrigation and debridement of the joint itself given the infection chondrotoxic in the [place] joint. After would likely consider an MRI if not improving, but will likely require IV antibiotics and Infectious Disease consult in some manner. The patient is somewhat agreeable; however, I will further discuss with their orientation and mobility instructor and will likely proceed with irrigation and debridement of right ankle later on today when OR available.. YUVAL:[email or web address] Job ID: [id number] Doc ID: [id number] Filippo Simeon MD MTDD
[2021-08-08] MEDS ORDERED: FLUMAZENIL 0.1 MG/ML ML IV ONE (17:24)
[2021-08-08] MEDS ORDERED: ONDANSETRON 4 MG/2 ML VIAL ONE (17:24)
[2021-08-08] MEDS ORDERED: PHENYLephrine 1 MG/10 ML SYRINGE (ANEST) ONE (17:24)
[2021-08-08] MEDS ORDERED: DEXAMETHASONE 10 MG/ML VIAL ONE (17:24)
[2021-08-08] MEDS ORDERED: LIDOCAINE HCL/PF 100 MG/5 ML SYRINGE IV ONE (17:24)
[2021-08-08] MEDS ORDERED: SUCCINYLCHOLINE 20 MG/ML ML IV ONE (17:24)
[2021-08-08] MEDS ORDERED: MAGNESIUM SULFATE 2 GM/50 ML BAG IV ONE (17:24)
[2021-08-08] MEDS ORDERED: NALBUPHINE 10 MG/ML AMPUL IV ONE (17:24)
[2021-08-08] MEDS ORDERED: NALOXONE HCL 0.4 MG/ML VIAL ONE (17:24)
[2021-08-08] MEDS ORDERED: KETAMINE 50 MG/ML Syringe (ANEST) IV ONE (17:24)
[2021-08-08] MEDS ORDERED: PROPOFOL 200 MG/20 ML VIAL IV ONE (17:24)
[2021-08-08] MEDS ORDERED: ACETAMINOPHEN 1,000 MG/100 ML BAG IV ONE (17:49)
[2021-08-08] MEDS ORDERED: MEPERIDINE 25 MG/ML VIAL IV PRN (17:49)
[2021-08-08] MEDS ORDERED: PROMETHAZINE 25 MG/ML VIAL IV PRN (17:49)
[2021-08-08] MEDS ORDERED: IPRATROPIUM/ALBUTEROL 3 ML AMPUL.NEB NEB PRN (17:49)
[2021-08-08] MEDS ORDERED: LACTATED RINGERS 250 ML IV PRN (17:49)
[2021-08-08] MEDS ORDERED: fentaNYL 100 MCG/2 ML VIAL IV PRN (17:49)
[2021-08-08] MEDS ORDERED: ONDANSETRON 4 MG/2 ML VIAL IV PRN (17:49)
[2021-08-08] MEDS ORDERED: diphenhydrAMINE 50 MG/ML VIAL IV PRN (17:49)
[2021-08-08] MEDS ORDERED: LACTATED RINGERS 1,000 ML IV SCH (18:00)
--- NOTE | 2021-08-08 18:23 | Brief Operative Note ---
Brief Operative Note Date of procedure: 08/08/21 Pre-op diagnosis: septic right ankle Post-op diagnosis: same Procedure: arthroscopic right ankle irrigation and debridement Grafts/Implants: No Anesthesia: GETA Findings: septic joint, some chondral injury to the anterior colliculus and anterior aspect of the plafond Complications: none Surgeon: Filippo Simeon Cut Out Stitcher: Sheldon Duff Estimated blood loss (cc): 5 Tourniquet Time (Minutes): 29 Specimens Removed/Pathology: none sent Condition: stable Disposition: PACU
[2021-08-08] MEDS: NALOXONE HCL 0.4 MG/ML VIAL IV PRN ×2 (18:51→18:56)
[2021-08-08 19:20] LABS: Appearance,Synovial Fluid Turbid; Color,Synovial Fluid Red; Lymphocytes,Synovial Fluid 4 %; Neutrophils,Synovial Fluid 94 % (0-25); Other Cells,Synovial Fluid 2 %
[2021-08-08] MEDS ORDERED: VANCOMYCIN PER PHARMACY IV SCH (20:08)
[2021-08-08] MEDS ORDERED: KETOROLAC 30 MG/ML VIAL IV ONE (20:27)
[2021-08-08] MEDS: VANCOMYCIN 1,500 MG in 0.9 % SODIUM CHLORIDE 500 ML IV SCH (20:54)
[2021-08-09] MEDS: CLINDAMYCIN 600 MG in DEXTROSE 5% IN WATER 50 ML IV SCH ×2 (02:53→11:53)
[2021-08-09] MEDS: ACETAMINOPHEN 325 MG TABLET PO PRN (05:40)
[2021-08-09] MEDS: 0.9 % SODIUM CHLORIDE 10 ML SYRINGE IV SCH ×3 (05:55→20:33)
[2021-08-09] MEDS: INSULIN LISPRO 1 UNIT/0.01 ML UNIT SQ SCH ×4 (07:18→20:45)
--- NOTE | 2021-08-09 07:31 | Internal Med Progress Note ---
SUBJECTIVE Subjective Patient information: Note initiated : 08/09/21 at 7:28 am Service Date, if different from initiated Date: [] Patient: Blake Bates 66 y/o M admitted on 08/07/21 for right heel pain. Chief Complaint: [] Interval history: History of present illness: Mr. Bates is a 66 year old M Reports increasing redness pain and swelling to his right ankle since Saturday. No reported injury. Unable to walk on it at this point. No fevers and chills. In the ED he is tachycardic blood pressure stable, leukocytosis. CRP quite elevated. Ultrasound and x-ray were done of the ankle leg showed no DVT but likely tenosynovitis along the medial side of the ankle. On examination appear to be cellulitic. Case discussed with Dr. Simeon who felt no immediate need for joint aspiration and to treat with IV antibiotics. 08/08 Patient feels his ankle is a little bit less painful but still significant pain with any movement. Did have a fever overnight and some sweating. No other new complaints. 08/09 Patient underwent washout of the ankle yesterday. In PACU he was hypoxic and hypercapnic. Concern he may have aspirated some degree during airway management. Patient was placed on BiPAP overnight. Mentation improved this morning. Waiting follow-up blood gas. Patient did cough up a lot of thick phlegm per nurse. Patient does have a bit o f a chronic cough and some congestion lately. Does not feel short of breath. But is on oxygen. Review of Systems: denies headache/fever/chills/nausea/vomiting/chest or abdominal pain/diarrhea. Otherwise see above. Constitutional Vitals: Vital Signs Temp Pulse Resp BP Pulse Ox 98.7 F 87 14 128/87 95 08/09/21 04:01 08/09/21 05:01 08/09/21 05:01 08/09/21 05:01 08/09/21 05:30 Period Temp Pulse Resp BP Sys/Virgen Pulse Ox Last 24 Hr 98.2 F-99.6 F 82-123 12-30 100-169/57-99 78-99 Intake and Output 08/08/21 08/09/21 08/09/21 21:59 05:59 13:59 Intake Total 154 554 Output Total 850 Balance -696 554 Weight 90.945 kg Intake & Output: Intake & Output 08/08/21 08/09/21 08/09/21 21:59 05:59 13:59 Intake Total 154 554 Output Total 850 Balance -696 554 Weight 90.945 kg Intake: IV 154 554 Cleocin 600 mg In Dextrose 5% 54 54 in Water 50 ml @ 100 mls/hr IV Q8H [facility] Rx#:[id number] Vancomycin 1,500 mg In Sodium 500 Chloride 0.9% 500 ml @ 333.3 mls/hr IV Q12H [facility] Rx#: [id number] Output: Urine Catheter Amount 300 Straight 300 Void Amount 550 Other: Urine Appearance Straight Clear Urine Color Light Renetta Straight Straw Urine Odor Foul Exam: General: Alert, Awake, No acute Distress Eyes/N/T: EOMI, Head/Neck: neck supple, CV: RRR, No murmurs, Pulm: left side rhonchi, minimal right side rhonchi, no wheezing Abd: soft, nontender, +BS x4 Ext: no clubbing/cyanosis/edema LLE. RLE in dressings Neuro: Alert, no focal deficits, moves all extremities, Skin: warm/dry OBJ DATA Labs CBC & Chem 7: 08/09/21 05:51 08/09/21 05:51 Labs: Abnormal Lab Results 08/08/21 08/08/21 08/08/21 15:45 10:00 05:23 WBC RBC Hgb Hct MCHC RDW Lymph % (Auto) [place] % (Auto) Lymph # (Auto) [place] # (Auto) Lymphocytes % Monocytes % (Manual) Absolute Neutrophils RBC Morphology Polychromasia Anisocytosis Sodium 130 L Chloride 93 L BUN Glucose 114 H Hemoglobin A1c Direct Bilirubin 0.3 H GGT 75 H C-Reactive Protein 42.30 H Total Protein Globulin 4.7 H Albumin/Globulin Ratio 0.7 L Synovial Neutrophils 94 H Urine Opiates Screen Suspect positive A Ur Amphetamines Screen Suspect positive A U Marijuana (THC) Screen Suspect positive A 08/08/21 08/07/21 08/07/21 05:23 13:51 13:51 WBC 12.9 H RBC 4.45 L Hgb 11.9 L Hct 38.7 L MCHC 30.7 L RDW 16.5 H Lymph % (Auto) [place] % (Auto) Lymph # (Auto) [place] # (Auto) Lymphocytes % 10 L Monocytes % (Manual) 18 H Absolute Neutrophils RBC Morphology Abnormal A Polychromasia Few A Anisocytosis 1+ A Sodium Chloride 93 L BUN 24 H Glucose 124 H Hemoglobin A1c 6.4 H Direct Bilirubin GGT C-Reactive Protein 25.90 H Total Protein 8.5 H Globulin 4.7 H Albumin/Globulin Ratio 0.8 L Synovial Neutrophils Urine Opiates Screen Ur Amphetamines Screen U Marijuana (THC) Screen 08/07/21 13:51 WBC 13.3 H RBC 4.54 L Hgb 12.4 L Hct 38.5 L MCHC RDW 16.3 H Lymph % (Auto) 10.1 L [place] % (Auto) 15.5 H Lymph # (Auto) 1.35 L [place] # (Auto) 2.06 H Lymphocytes % Monocytes % (Manual) Absolute Neutrophils 9.77 H RBC Morphology Polychromasia Anisocytosis Sodium Chloride BUN Glucose Hemoglobin A1c Direct Bilirubin GGT C-Reactive Protein Total Protein Globulin Albumin/Globulin Ratio Synovial Neutrophils Urine Opiates Screen Ur Amphetamines Screen U Marijuana (THC) Screen Meds: Medications Acetaminophen (Acetaminophen 325 Mg Tablet) 650 mg PO Q6HP PRN; Protocol PRN Reason: Per Pain Protocol/Fever > 101 Last Admin: 08/09/21 05:40 Dose: 650 mg Documented by: Hydrocodone Bitart/Acetaminophen (Hydrocodone/Apap 5/325mg Tablet) 1 tab PO Q4HP PRN PRN Reason: PAIN LEVEL 3-6 Last Admin: 08/08/21 10:06 Dose: 1 tab Documented by: Albuterol/Ipratropium (Ipratropium/Albuterol 3 Ml Ampul.Neb) 3 ml NEB Q4HP PRN PRN Reason: Shortness Of Breath Last Admin: 08/08/21 13:05 Dose: 3 ml Documented by: Atorvastatin Calcium (Atorvastatin 20 Mg Tablet) 20 mg PO QDAY [facility] Last Admin: 08/08/21 08:27 Dose: 20 mg Documented by: Dextrose (Dextrose 50% 50 Ml Vial) 0 ml IV UD PRN PRN Reason: Hypoglycemia Diagnostic Test (Pha) (Accu-Chek 1 Each Strip) 1 each FS ACHS [facility] Last Admin: 08/09/21 07:17 Dose: 1 each Documented by: Docusate Sodium (Docusate Sodium 100 Mg Capsule) 100 mg PO BID [facility] Last Admin: 08/08/21 20:52 Dose: Not Given Documented by: Glucose (Dextrose 31 Gm Oral.Susp) 15 gm PO PRN PRN PRN Reason: Hypoglycemia Potassium Chloride 40 meq/ (Dextrose) 520 mls @ 130 mls/hr IV UD PRN PRN Reason: Potassium < 3 Magnesium Sulfate (Magnesium Sulfate) 2 gm in 50 mls @ 50 mls/hr IV UD PRN PRN Reason: Magnesium </= 1.6 Ceftriaxone Sodium 2 gm/ (Dextrose) 50 mls @ 100 mls/hr IV Q24H [facility]; Protocol Last Infusion: 08/08/21 09:18 Dose: Infused Documented by: Clindamycin Phosphate 600 mg/ (Dextrose) 54 mls @ 100 mls/hr IV Q8H [facility]; Protocol Stop: 08/09/21 11:33 Last Infusion: 08/09/21 03:26 Dose: Infused Documented by: Vancomycin HCl 1,500 mg/ (Sodium Chloride) 500 mls @ 333.3 mls/hr IV Q12H [facility] Last Infusion: 08/08/21 22:47 Dose: Infused Documented by: Acetaminophen (Ofirmev) 650 mg in 65 mls @ 130 mls/hr IV Q6HP PRN; Protocol PRN Reason: PAIN/FEVER > 101 Insulin Human Lispro (Insulin Lispro 1 Unit/0.01 Ml Unit) 0 unit SQ ACHS [facility]; Protocol Last Admin: 08/09/21 07:18 Dose: Not Given Documented by: Labetalol HCl (Labetalol 5 Mg/Ml Ml) 0 mg IV Q2HP PRN PRN Reason: Hypertension Lorazepam (Lorazepam 2 Mg/Ml Vial) 0.25 mg IV Q4HP PRN PRN Reason: ANXIETY/SEDATION Metoclopramide HCl (Metoclopramide 10 Mg/2 Ml Vial) 10 mg IV Q6HP PRN PRN Reason: Nausea And Vomiting Morphine Sulfate (Morphine 4 Mg/Ml Vial) 0 mg IV Q3HP PRN PRN Reason: Pain Last Admin: 08/08/21 00:15 Dose: 3 mg Documented by: Ondansetron HCl (Ondansetron 4 Mg/2 Ml Vial) 4 mg IV Q4HP PRN PRN Reason: Nausea And Vomiting Lorlatinib 100 Mg (Tablet) 1 dose PO DAILY [facility] Last Admin: 08/08/21 08:28 Dose: Not Given Documented by: Polyethylene Glycol (Polyethylene Glycol 3350 17 Gm Packet) 17 gm PO DAILYP PRN PRN Reason: Constipation Potassium Chloride (Potassium Chloride 20 Meq Tablet) 40 meq PO UD PRN PRN Reason: Potssium is 3-3.5 Potassium Chloride (Potassium Chloride 20 Meq Tablet) 40 meq PO UD PRN PRN Reason: Potassium < 3 Senna (Sennosides 1 Tablet) 2 tab PO DAILYP PRN PRN Reason: Constipation Sodium Chloride (0.9 % Sodium Chloride 10 Ml Syringe) 10 ml IV Q8 [facility] Last Admin: 08/09/21 05:55 Dose: 10 ml Documented by: Vancomycin HCl (Vancomycin Per Pharmacy) 1 order IV UD [facility]; Protocol A/P Narrative A/P Narrative: A: *Septic Right ankle joint: s/p joint washout (08/08) of purulent fluid -BC neg thus far *SIRS: 2/2 above -afebrile o/n -leukocytosis similar to yesterday *Acute hypoxic/hypercapnic respiratory failure: concern for possible aspiration periop + underlying chronic lung impairment -on bipap o/n, now off *h/o metastatic NSCLC: follows with mamadou *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
[2021-08-09 07:47] LABS: Basophils # (Auto) 0.02 K/mcL (0.00-0.30); Basophils % (Auto) 0.2 % (0.0-2.0); Eosinophils # (Auto) 0 K/mcL (0.00-0.70); Eosinophils % (Auto) 0 % (0.0-7.0); Hematocrit 38.5 % (40.1-51.0); Hemoglobin 11.9 g/dL (13.7-17.5); Lymphocytes # (Auto) 0.63 K/mcL (1.50-4.80); Lymphocytes % (Auto) 4.9 % (15.5-49.0); Mean Cell Volume 87.3 fL (80.0-100.0); Mean Corpuscular HGB Conc 30.9 g/dL (31.0-36.0); Mean Platelet Volume 10.5 fL (7.4-10.4); Monocytes # (Auto) 0.69 K/mcL (0.10-0.90); Monocytes % (Auto) 5.3 % (1.0-12.0); Neutrophils % (Auto) 89.6 % (38.0-78.0); Platelet Count 199 K/mcL (140-440); RBC 4.41 M/mcL (4.63-6.08); Red Cell Distribution Width 16.2 % (11.5-14.5)
--- NOTE | 2021-08-09 07:52 | Orthopedic Progress Note ---
SUBJECTIVE Subjective Patient information: Note initiated : 08/09/21 at 7:50 am Service Date, if different from initiated Date: [] Patient: Blake Bates 66 y/o M admitted on 08/07/21 for right heel pain. Chief Complaint: Pt sleeping in ICU, did not awake on exam. No orthopeadic concerns per nursing. Constitutional Vitals: Vital Signs Temp Pulse Resp BP Pulse Ox 98.7 F 87 14 128/87 95 08/09/21 04:01 08/09/21 05:01 08/09/21 05:01 08/09/21 05:01 08/09/21 05:30 Period Temp Pulse Resp BP Sys/Virgen Pulse Ox Last 24 Hr 98.2 F-99.6 F 82-123 12-30 100-169/57-99 78-99 Intake and Output 08/08/21 08/09/21 08/09/21 21:59 05:59 13:59 Intake Total 154 554 Output Total 850 Balance -696 554 Weight 200 lb 8 oz Intake & Output: Intake & Output 08/08/21 08/09/21 08/09/21 21:59 05:59 13:59 Intake Total 154 554 Output Total 850 Balance -696 554 Weight 200 lb 8 oz Intake: IV 154 554 Cleocin 600 mg In Dextrose 5% 54 54 in Water 50 ml @ 100 mls/hr IV Q8H [facility] Rx#:[id number] Vancomycin 1,500 mg In Sodium 500 Chloride 0.9% 500 ml @ 333.3 mls/hr IV Q12H [facility] Rx#: [id number] Output: Urine Catheter Amount 300 Straight 300 Void Amount 550 Other: Urine Appearance Straight Clear Urine Color Light Renetta Straight Straw Urine Odor Foul Skin Skin exam: Present dry and warm OBJ DATA Labs CBC & Chem 7: 08/09/21 05:51 08/08/21 05:23 Labs: Abnormal Lab Results 08/09/21 08/08/21 08/08/21 05:51 15:45 10:00 WBC 13.0 H RBC 4.41 L Hgb 11.9 L Hct 38.5 L MCHC 30.9 L RDW 16.2 H MPV 10.5 H Neut % (Auto) 89.6 H Lymph % (Auto) 4.9 L [place] % (Auto) Lymph # (Auto) 0.63 L [place] # (Auto) Lymphocytes % Monocytes % (Manual) Absolute Neutrophils 11.63 H RBC Morphology Polychromasia Anisocytosis Sodium Chloride BUN Glucose Hemoglobin A1c Direct Bilirubin GGT C-Reactive Protein Total Protein Globulin Albumin/Globulin Ratio Synovial Neutrophils 94 H Urine Opiates Screen Suspect positive A Ur Amphetamines Screen Suspect positive A U Marijuana (THC) Screen Suspect positive A 08/08/21 08/08/21 08/07/21 05:23 05:23 13:51 WBC 12.9 H RBC 4.45 L Hgb 11.9 L Hct 38.7 L MCHC 30.7 L RDW 16.5 H MPV Neut % (Auto) Lymph % (Auto) [place] % (Auto) Lymph # (Auto) [place] # (Auto) Lymphocytes % 10 L Monocytes % (Manual) 18 H Absolute Neutrophils RBC Morphology Abnormal A Polychromasia Few A Anisocytosis 1+ A Sodium 130 L Chloride 93 L BUN Glucose 114 H Hemoglobin A1c 6.4 H Direct Bilirubin 0.3 H GGT 75 H C-Reactive Protein 42.30 H Total Protein Globulin 4.7 H Albumin/Globulin Ratio 0.7 L Synovial Neutrophils Urine Opiates Screen Ur Amphetamines Screen U Marijuana (THC) Screen 08/07/21 08/07/21 13:51 13:51 WBC 13.3 H RBC 4.54 L Hgb 12.4 L Hct 38.5 L MCHC RDW 16.3 H MPV Neut % (Auto) Lymph % (Auto) 10.1 L [place] % (Auto) 15.5 H Lymph # (Auto) 1.35 L [place] # (Auto) 2.06 H Lymphocytes % Monocytes % (Manual) Absolute Neutrophils 9.77 H RBC Morphology Polychromasia Anisocytosis Sodium Chloride 93 L BUN 24 H Glucose 124 H Hemoglobin A1c Direct Bilirubin GGT C-Reactive Protein 25.90 H Total Protein 8.5 H Globulin 4.7 H Albumin/Globulin Ratio 0.8 L Synovial Neutrophils Urine Opiates Screen Ur Amphetamines Screen U Marijuana (THC) Screen badnages c/d/i nvi-distal Meds: Medications Acetaminophen (Acetaminophen 325 Mg Tablet) 650 mg PO Q6HP PRN; Protocol PRN Reason: Per Pain Protocol/Fever > 101 Last Admin: 08/09/21 05:40 Dose: 650 mg Documented by: Hydrocodone Bitart/Acetaminophen (Hydrocodone/Apap 5/325mg Tablet) 1 tab PO Q4HP PRN PRN Reason: PAIN LEVEL 3-6 Last Admin: 08/08/21 10:06 Dose: 1 tab Documented by: Albuterol/Ipratropium (Ipratropium/Albuterol 3 Ml Ampul.Neb) 3 ml NEB Q4HP PRN PRN Reason: Shortness Of Breath Last Admin: 08/08/21 13:05 Dose: 3 ml Documented by: Atorvastatin Calcium (Atorvastatin 20 Mg Tablet) 20 mg PO QDAY [facility] [place] Last Admin: 08/08/21 08:27 Dose: 20 mg Documented by: Dextrose (Dextrose 50% 50 Ml Vial) 0 ml IV UD PRN PRN Reason: Hypoglycemia Diagnostic Test (Pha) (Accu-Chek 1 Each Strip) 1 each FS ACHS [facility] [place] Last Admin: 08/09/21 07:17 Dose: 1 each Documented by: Docusate Sodium (Docusate Sodium 100 Mg Capsule) 100 mg PO BID [facility] [place] Last Admin: 08/08/21 20:52 Dose: Not Given Documented by: Glucose (Dextrose 31 Gm Oral.Susp) 15 gm PO PRN PRN PRN Reason: Hypoglycemia Potassium Chloride 40 meq/ (Dextrose) 520 mls @ 130 mls/hr IV UD PRN PRN Reason: Potassium < 3 Magnesium Sulfate (Magnesium Sulfate) 2 gm in 50 mls @ 50 mls/hr IV UD PRN PRN Reason: Magnesium </= 1.6 Ceftriaxone Sodium 2 gm/ (Dextrose) 50 mls @ 100 mls/hr IV Q24H [facility] [place]; Protocol Last Infusion: 08/08/21 09:18 Dose: Infused Documented by: Clindamycin Phosphate 600 mg/ (Dextrose) 54 mls @ 100 mls/hr IV Q8H [facility] [place]; Protocol Stop: 08/09/21 11:33 Last Infusion: 08/09/21 03:26 Dose: Infused Documented by: Vancomycin HCl 1,500 mg/ (Sodium Chloride) 500 mls @ 333.3 mls/hr IV Q12H [facility] [place] Last Infusion: 08/08/21 22:47 Dose: Infused Documented by: Acetaminophen (Ofirmev) 650 mg in 65 mls @ 130 mls/hr IV Q6HP PRN; Protocol PRN Reason: PAIN/FEVER > 101 Insulin Human Lispro (Insulin Lispro 1 Unit/0.01 Ml Unit) 0 unit SQ [facility] [place]; Protocol Last Admin: 08/09/21 07:18 Dose: Not Given Documented by: Labetalol HCl (Labetalol 5 Mg/Ml Ml) 0 mg IV Q2HP PRN PRN Reason: Hypertension Lorazepam (Lorazepam 2 Mg/Ml Vial) 0.25 mg IV Q4HP PRN PRN Reason: ANXIETY/SEDATION Metoclopramide HCl (Metoclopramide 10 Mg/2 Ml Vial) 10 mg IV Q6HP PRN PRN Reason: Nausea And Vomiting Morphine Sulfate (Morphine 4 Mg/Ml Vial) 0 mg IV Q3HP PRN PRN Reason: Pain Last Admin: 08/08/21 00:15 Dose: 3 mg Documented by: Ondansetron HCl (Ondansetron 4 Mg/2 Ml Vial) 4 mg IV Q4HP PRN PRN Reason: Nausea And Vomiting Lorlatinib 100 Mg (Tablet) 1 dose PO DAILY [facility] [place] Last Admin: 08/08/21 08:28 Dose: Not Given Documented by: Polyethylene Glycol (Polyethylene Glycol 3350 17 Gm Packet) 17 gm PO DAILYP PRN PRN Reason: Constipation Potassium Chloride (Potassium Chloride 20 Meq Tablet) 40 meq PO UD PRN PRN Reason: Potssium is 3-3.5 Potassium Chloride (Potassium Chloride 20 Meq Tablet) 40 meq PO UD PRN PRN Reason: Potassium < 3 Senna (Sennosides 1 Tablet) 2 tab PO DAILYP PRN PRN Reason: Constipation Sodium Chloride (0.9 % Sodium Chloride 10 Ml Syringe) 10 ml IV Q8 [facility] [place] Last Admin: 08/09/21 05:55 Dose: 10 ml Documented by: Vancomycin HCl (Vancomycin Per Pharmacy) 1 order IV UD [facility] [place]; Protocol A/P Narrative A/P Narrative: 1 day s/p R ankle arthroscopic I&D cont medical management per hospitalist. Time Spent With Patient Time: Total time spent is greater than 50% in coordination of care (as documented) at patient's floor/unit and/or counseling patient:
[2021-08-09 08:17] LABS: Blood Urea Nitrogen 24 mg/dL (8-23); Calcium 8.7 mg/dL (8.6-10.4); Carbon Dioxide 28 mmol/L (22-30); Chloride 97 mmol/L (96-108); Glomerular Filtration Rate 79; Glucose 158 mg/dL (70-105)
--- NOTE | 2021-08-09 08:43 | Operative Note ---
DATE OF OPERATION: 08/08/2021 PREOPERATIVE DIAGNOSIS: Right septic ankle. POSTOPERATIVE DIAGNOSIS: Right septic ankle. PROCEDURE PERFORMED: Right arthroscopic ankle irrigation and debridement. SURGEON: Filippo Simeon M.D. [employer] D[employer]Y RN: Dario Duff PA-C. This providers expertise and technical skill were required throughout the case. The PA assisted with preoperative coordination, intraoperative retraction, wound closure, and dressing and splint application, as well as postoperative documentation and care coordination. ANESTHESIA: General. INTRAVENOUS FLUIDS: 600 mL of lactated Ringer's. ESTIMATED BLOOD LOSS: Minimal. TOURNIQUET TIME: 20 minutes at 250 mmHg. ANTIBIOTICS: None, additionally. The patient is on dual broad-spectrum antibiotics for cellulitis. IMPLANTS: None. INTRAOPERATIVE COMPLICATIONS: None apparent. PATHOLOGY/LAB: None. OPERATIVE FINDINGS: Violette purulence within the joint. He does have some chondral injury to the anterior colliculus on the cartilage side as well as the anterior aspect of the plafond. Otherwise, cartilage does appear intact throughout. INDICATIONS FOR PROCEDURE: The patient is a 66-year-old male who reportedly had increasing pain, who was admitted by the hospitalist with cellulitis and septic ankle with violette purulence. This was sent for culture and cell count analysis. In the meantime, recommendation is for irrigation and debridement of the joint given that it is septic and is his belkofski joint, this is toxic and I do think it is best performed on an urgent basis. Given these facts, he elected to proceed. DESCRIPTION OF PROCEDURE: Patient was met in the preoperative holding area where site was verified and marked with the patient's input. He was then taken back to the operating room were he underwent successful anesthesia. He had a well-padded tourniquet placed about the proximal right thigh and then a leg vaca positioned on the thigh for counter traction. The leg was then prepped and draped in the usual sterile fashion with ChloraPrep. Surgical timeout was performed to verify patient's identity, correct procedure being performed, and correct extremity being operated on. Everybody was in agreement. Once this was complete, we placed ankle in a noninvasive traction device. I did place Esmarch proximal to the ankle to exsanguinate the extremity, but not distal over the ankle itself. At this point, I palpated just medial to the anterior tibialis to the level of the joint and made a small stab incision and then the scope was inserted. Under direct visualization, I created a lateral portal as well at the level of joint anterior to the distal fibula, ensuring not to injure any of the cutaneous branches of the superficial peroneal nerve or the traversing vessels. This was done with the spread and dissect technique. Once complete, I placed a shaver in the lateral portal. Irrigation of 6 liters throughout the joint, irrigating and doing a synovectomy along the anterior aspect as well as posterior joint. I did also switch the camera to the lateral portal and a shaver to the medial portal for further irrigation. This, with the above findings, at the conclusion of the joint was clear and the instruments were removed. At this point, we set up a clean field. The leg was then cleaned and dried. I did close the lateral portal with a 3-0 nylon. The medial portal was closed with a simple suture to allow for drainage. A dressing was then applied to include Xeroform over the lateral portal, medially left this open along with a significant amount of padding as I expect drainage, and we overwrapped this with Webril and Monster wrap, placed in a Cam walking boot. The patient slowly from anesthesia and eventually transferred to the ICU. POSTOPERATIVE PLAN: The patient will be admitted back to the hospital for postoperative care and continue with IV antibiotics. Will follow up cultures and labs to ensure continued improvement of the symptoms. If the symptoms do not improve or a source is not found, we would consider MRI of the ankle to rule out osteo. [email or web address] Job ID: [id number] Doc ID: [id number] Filippo Simeon MD [facility]
[2021-08-09] MEDS ORDERED: LORazepam 2 MG/ML VIAL IV PRN (09:08)
--- NOTE | 2021-08-09 09:28 | XRay Report ---
HISTORY: Aspiration during surgery FINDINGS: Right diaphragm is severely elevated. This is a chronic finding but is worse today than it was on 06/19/21. There are moderate diffuse alveolar infiltrates throughout both lungs with the greatest involvement in the right lung. The infiltrates are new. There is no pneumothorax or pleural effusion. The heart is grossly normal in size. There is an expandable stent in the superior vena cava. IMPRESSION: Widespread bilateral infiltrates. This could be due to aspiration, pneumonia or pulmonary edema Interpreted and Authenticated by: Vadim Bryant 08/09/21
[2021-08-09] MEDS: VANCOMYCIN 1,500 MG in 0.9 % SODIUM CHLORIDE 500 ML IV SCH ×2 (09:32→20:34)
[2021-08-09] MEDS ORDERED: FUROSEMIDE 40 MG/4 ML VIAL IV ONE (10:10)
[2021-08-09] MEDS: ATORVASTATIN 20 MG TABLET PO SCH (11:11)
[2021-08-09] MEDS: [UNRECOGNIZED DRUG - OTHER] PO SCH (11:11)
[2021-08-09] MEDS: DOCUSATE SODIUM 100 MG CAPSULE PO SCH ×3 (11:11→20:50)
[2021-08-09] MEDS: cefTRIAXone 2 GM in DEXTROSE 5% IN WATER 50 ML IV SCH (11:12)
[2021-08-09 13:22] LABS: POC Blood Urea Nitrogen 29 mg/dL (6-20); POC CO2 30 mmol/L (22-30); POC Calcium, Ionized 1.09 mmEq/L (1.16-1.32); POC Chloride 97 mEq/L (96-108); POC Creatinine 0.9 mg/dL (0.6-1.2); POC Glucose, Random 144 mg/dL (70-105); POC Hematocrit 37 % (41-55); POC Potassium 4.4 mEql/L (3.3-5.1); POC Sodium 138 mEq/L (133-145)
[2021-08-09] MEDS ORDERED: FUROSEMIDE 20 MG/2 ML VIAL IV ONE (15:57)
[2021-08-10] MEDS: HYDROcodone/APAP 5/325MG TABLET PO PRN ×5 (00:12→23:01)
[2021-08-10] MEDS: 0.9 % SODIUM CHLORIDE 10 ML SYRINGE IV SCH ×3 (04:00→20:10)
--- NOTE | 2021-08-10 07:17 | Orthopedic Progress Note ---
SUBJECTIVE Subjective Patient information: Note initiated : 08/10/21 at 7:12 am Service Date, if different from initiated Date: [] Patient: Blake Bates 66 y/o M admitted on 08/07/21 for right heel pain. Chief Complaint: [currently pain improved, in icu on 2L NC wiht improve pulmonary status] Constitutional Vitals: Vital Signs Temp Pulse Resp BP Pulse Ox 99.5 F H 103 H 22 143/88 95 08/10/21 04:01 08/10/21 05:02 08/10/21 05:02 08/10/21 05:02 08/10/21 05:02 Period Temp Pulse Resp BP Sys/Virgen Pulse Ox Last 24 Hr 97.5 F-100.4 F 29-117 14-27 109-162/56-95 79-99 Intake and Output 08/09/21 08/10/21 08/10/21 21:59 05:59 13:59 Intake Total 1084 1780 Output Total 1250 550 Balance -166 1230 Weight 202 lb 2 oz Intake & Output: Intake & Output 08/09/21 08/10/21 08/10/21 21:59 05:59 13:59 Intake Total 1084 1780 Output Total 1250 550 Balance -166 1230 Weight 202 lb 2 oz Intake: IV 604 500 Cleocin 600 mg In Dextrose 5% 54 in Water 50 ml @ 100 mls/hr IV Q8H [facility] Rx#:[id number] Vancomycin 1,500 mg In Sodium 500 500 Chloride 0.9% 500 ml @ 333.3 mls/hr IV Q12H [facility] Rx#: [id number] Rocephin 2 gm In Dextrose 5% in 50 Water 50 ml @ 100 mls/hr IV Q24H [facility] Rx#:[id number] Oral 480 1280 Output: Void Amount 1250 550 Other: Meal Dinner Percent of Meal Consumed 100% Feeding Ability Independent Urine Appearance Clear Clear Urine Color Pale Bright Yellow Urine Odor Normal Stool Size Moderate Stool Color Brown Stool Consistency Formed # Bowel Movements 1 Additional findings Additional findings: general: awake, appropriate right ankle: dressing removed- minimal drainage, sharp erythema demarcation is resolving, less pain with motion but still present. foot is warm well perfused. OBJ DATA Labs CBC & Chem 7: 08/09/21 05:51 08/09/21 05:51 Labs: Abnormal Lab Results 08/09/21 08/09/21 08/09/21 13:13 11:00 05:51 WBC RBC Hgb Hct POC Hct 37 L MCHC RDW MPV Neut % (Auto) Lymph % (Auto) [place] % (Auto) Lymph # (Auto) [place] # (Auto) Lymphocytes % Monocytes % (Manual) Absolute Neutrophils RBC Morphology Polychromasia Anisocytosis Sodium Potassium 5.5 H Chloride POC BUN 29 H BUN 24 H Glucose 158 H POC Glucose 144 H Hemoglobin A1c POC WB Ioniz Calcium 1.09 L Direct Bilirubin GGT C-Reactive Protein NT-Pro-B Natriuret Pep 225.0 H Total Protein Globulin Albumin/Globulin Ratio Synovial Neutrophils Urine Opiates Screen Ur Amphetamines Screen U Marijuana (THC) Screen 08/09/21 08/08/21 08/08/21 05:51 15:45 10:00 WBC 13.0 H RBC 4.41 L Hgb 11.9 L Hct 38.5 L POC Hct MCHC 30.9 L RDW 16.2 H MPV 10.5 H Neut % (Auto) 89.6 H Lymph % (Auto) 4.9 L [place] % (Auto) Lymph # (Auto) 0.63 L [place] # (Auto) Lymphocytes % Monocytes % (Manual) Absolute Neutrophils 11.63 H RBC Morphology Polychromasia Anisocytosis Sodium Potassium Chloride POC BUN BUN Glucose POC Glucose Hemoglobin A1c POC WB Ioniz Calcium Direct Bilirubin GGT C-Reactive Protein NT-Pro-B Natriuret Pep Total Protein Globulin Albumin/Globulin Ratio Synovial Neutrophils 94 H Urine Opiates Screen Suspect positive A Ur Amphetamines Screen Suspect positive A U Marijuana (THC) Screen Suspect positive A 08/08/21 08/08/21 08/07/21 05:23 05:23 13:51 WBC 12.9 H RBC 4.45 L Hgb 11.9 L Hct 38.7 L POC Hct MCHC 30.7 L RDW 16.5 H MPV Neut % (Auto) Lymph % (Auto) [place] % (Auto) Lymph # (Auto) [place] # (Auto) Lymphocytes % 10 L Monocytes % (Manual) 18 H Absolute Neutrophils RBC Morphology Abnormal A Polychromasia Few A Anisocytosis 1+ A Sodium 130 L Potassium Chloride 93 L POC BUN BUN Glucose 114 H POC Glucose Hemoglobin A1c 6.4 H POC WB Ioniz Calcium Direct Bilirubin 0.3 H GGT 75 H C-Reactive Protein 42.30 H NT-Pro-B Natriuret Pep Total Protein Globulin 4.7 H Albumin/Globulin Ratio 0.7 L Synovial Neutrophils Urine Opiates Screen Ur Amphetamines Screen U Marijuana (THC) Screen 08/07/21 08/07/21 13:51 13:51 WBC 13.3 H RBC 4.54 L Hgb 12.4 L Hct 38.5 L POC Hct MCHC RDW 16.3 H MPV Neut % (Auto) Lymph % (Auto) 10.1 L [place] % (Auto) 15.5 H Lymph # (Auto) 1.35 L [place] # (Auto) 2.06 H Lymphocytes % Monocytes % (Manual) Absolute Neutrophils 9.77 H RBC Morphology Polychromasia Anisocytosis Sodium Potassium Chloride 93 L POC BUN BUN 24 H Glucose 124 H POC Glucose Hemoglobin A1c POC WB Ioniz Calcium Direct Bilirubin GGT C-Reactive Protein 25.90 H NT-Pro-B Natriuret Pep Total Protein 8.5 H Globulin 4.7 H Albumin/Globulin Ratio 0.8 L Synovial Neutrophils Urine Opiates Screen Ur Amphetamines Screen U Marijuana (THC) Screen Meds: Medications Acetaminophen (Acetaminophen 325 Mg Tablet) 650 mg PO Q6HP PRN; Protocol PRN Reason: Per Pain Protocol/Fever > 101 Last Admin: 08/09/21 05:40 Dose: 650 mg Documented by: Hydrocodone Bitart/Acetaminophen (Hydrocodone/Apap 5/325mg Tablet) 1 tab PO Q4HP PRN PRN Reason: PAIN LEVEL 3-6 Last Admin: 08/10/21 00:12 Dose: 1 tab Documented by: Albuterol/Ipratropium (Ipratropium/Albuterol 3 Ml Ampul.Neb) 3 ml NEB Q4HP PRN PRN Reason: Shortness Of Breath Last Admin: 08/08/21 13:05 Dose: 3 ml Documented by: Atorvastatin Calcium (Atorvastatin 20 Mg Tablet) 20 mg PO QDAY [facility] Last Admin: 08/09/21 11:11 Dose: Not Given Documented by: Dextrose (Dextrose 50% 50 Ml Vial) 0 ml IV UD PRN PRN Reason: Hypoglycemia Diagnostic Test (Pha) (Accu-Chek 1 Each Strip) 1 each FS ACHS [facility] Last Admin: 08/09/21 20:45 Dose: 1 each Documented by: Docusate Sodium (Docusate Sodium 100 Mg Capsule) 100 mg PO BID [facility] Last Admin: 08/09/21 20:50 Dose: 100 mg Documented by: Glucose (Dextrose 31 Gm Oral.Susp) 15 gm PO PRN PRN PRN Reason: Hypoglycemia Potassium Chloride 40 meq/ (Dextrose) 520 mls @ 130 mls/hr IV UD PRN PRN Reason: Potassium < 3 Magnesium Sulfate (Magnesium Sulfate) 2 gm in 50 mls @ 50 mls/hr IV UD PRN PRN Reason: Magnesium </= 1.6 Ceftriaxone Sodium 2 gm/ (Dextrose) 50 mls @ 100 mls/hr IV Q24H [facility]; Protocol Last Infusion: 08/09/21 14:49 Dose: Infused Documented by: Vancomycin HCl 1,500 mg/ (Sodium Chloride) 500 mls @ 333.3 mls/hr IV Q12H [facility] Last Infusion: 08/09/21 22:19 Dose: Infused Documented by: Acetaminophen (Ofirmev) 650 mg in 65 mls @ 130 mls/hr IV Q6HP PRN; Protocol PRN Reason: PAIN/FEVER > 101 Insulin Human Lispro (Insulin Lispro 1 Unit/0.01 Ml Unit) 0 unit SQ ACHS [facility]; Protocol Last Admin: 08/09/21 20:45 Dose: 6 unit Documented by: Labetalol HCl (Labetalol 5 Mg/Ml Ml) 0 mg IV Q2HP PRN PRN Reason: Hypertension Metoclopramide HCl (Metoclopramide 10 Mg/2 Ml Vial) 10 mg IV Q6HP PRN PRN Reason: Nausea And Vomiting Morphine Sulfate (Morphine 4 Mg/Ml Vial) 0 mg IV Q3HP PRN PRN Reason: Pain Last Admin: 08/08/21 00:15 Dose: 3 mg Documented by: Ondansetron HCl (Ondansetron 4 Mg/2 Ml Vial) 4 mg IV Q4HP PRN PRN Reason: Nausea And Vomiting Lorlatinib 100 Mg (Tablet) 1 dose PO DAILY [facility] Last Admin: 08/09/21 11:11 Dose: Not Given Documented by: Polyethylene Glycol (Polyethylene Glycol 3350 17 Gm Packet) 17 gm PO DAILYP PRN PRN Reason: Constipation Potassium Chloride (Potassium Chloride 20 Meq Tablet) 40 meq PO UD PRN PRN Reason: Potssium is 3-3.5 Potassium Chloride (Potassium Chloride 20 Meq Tablet) 40 meq PO UD PRN PRN Reason: Potassium < 3 Senna (Sennosides 1 Tablet) 2 tab PO DAILYP PRN PRN Reason: Constipation Sodium Chloride (0.9 % Sodium Chloride 10 Ml Syringe) 10 ml IV Q8 [facility] Last Admin: 08/10/21 04:00 Dose: 10 ml Documented by: Vancomycin HCl (Vancomycin Per Pharmacy) 1 order IV UD [facility]; Protocol A/P Assessment and plan (1) Septic arthritis of ankle: Assessment and plan: POD 2 s/p arthroscopic I&D -- currently ICU status post surgery secondary to pulmonary issues which are improving -- labs this AM are pending -- bld cx- no growth to date -- ankle aspirate- pos gram pos cocci, cx pending including fungal -- No source of infection currently- if none would recommend MRI of ankle -- IV abx- follow cultures -- dispo: pending but chart review states pateint intends to d/c home upon discharge Status: Acute Time Spent With Patient Time: Total time spent is greater than 50% in coordination of care (as documented) at patient's floor/unit and/or counseling patient:
[2021-08-10] MEDS: [UNRECOGNIZED DRUG - OTHER] PO SCH (07:38)
[2021-08-10] MEDS: ATORVASTATIN 20 MG TABLET PO SCH (07:43)
[2021-08-10] MEDS: DOCUSATE SODIUM 100 MG CAPSULE PO SCH ×2 (07:43→20:10)
[2021-08-10] MEDS: INSULIN LISPRO 1 UNIT/0.01 ML UNIT SQ SCH ×4 (07:44→20:10)
[2021-08-10 07:46] LABS: Basophils # (Auto) 0.05 K/mcL (0.00-0.30); Basophils % (Auto) 0.4 % (0.0-2.0); Eosinophils # (Auto) 0.09 K/mcL (0.00-0.70); Eosinophils % (Auto) 0.8 % (0.0-7.0); Hematocrit 32.8 % (40.1-51.0); Hemoglobin 10.3 g/dL (13.7-17.5); Lymphocytes # (Auto) 1.03 K/mcL (1.50-4.80); Lymphocytes % (Auto) 8.8 % (15.5-49.0); Mean Cell Volume 86.1 fL (80.0-100.0); Mean Corpuscular HGB Conc 31.4 g/dL (31.0-36.0); Mean Platelet Volume 10.6 fL (7.4-10.4); Monocytes # (Auto) 1.43 K/mcL (0.10-0.90); Monocytes % (Auto) 12.2 % (1.0-12.0); Neutrophils % (Auto) 77.8 % (38.0-78.0); Platelet Count 217 K/mcL (140-440); RBC 3.81 M/mcL (4.63-6.08); Red Cell Distribution Width 16.2 % (11.5-14.5); WBC 11.7 K/mcL (4.5-11.0)
[2021-08-10 08:15] LABS: ALT/SGPT 16 U/L (<40); AST/SGOT 18 U/L (<40); Albumin 3.1 gm/dL (3.2-5.2); Albumin/Globulin Ratio 0.9 (1.0-2.3); Alkaline Phosphatase 112 U/L (39-117); Bilirubin,Direct < 0.2 mg/dL (0-0.3); Bilirubin,Total 0.2 mg/dL (0.1-1.0); Blood Urea Nitrogen 28 mg/dL (8-23); Calcium 8.2 mg/dL (8.6-10.4); Carbon Dioxide 30 mmol/L (22-30); Chloride 96 mmol/L (96-108); Globulin 3.3 gm/dL (2.2-3.7); Glomerular Filtration Rate 90; Glucose 115 mg/dL (70-105); Lactate Dehydrogenase 150 U/L (135-225); Phosphorous 1.6 mg/dL (2.5-4.5); Triglycerides 127 mg/dL (<150); Uric Acid 5.9 mg/dL (2.5-8.0)
--- NOTE | 2021-08-10 08:36 | Internal Med Progress Note ---
SUBJECTIVE Subjective Patient information: Note initiated : 08/10/21 at 8:26 am Service Date, if different from initiated Date: [] Patient: Blake Bates a 66 y/o M admitted on 08/07/21 for right heel pain. Chief Complaint: [] Interval history: History of present illness: Mr. Baets is a 66 year old M Reports increasing redness pain and swelling to his right ankle since Saturday. No reported injury. Unable to walk on it at this point. No fevers and chills. In the ED he is tachycardic blood pressure stable, leukocytosis. CRP quite elevated. Ultrasound and x-ray were done of the ankle leg showed no DVT but likely tenosynovitis along the medial side of the ankle. On examination appear to be cellulitic. Case discussed with Dr. Simeon who felt no immediate need for joint aspiration and to treat with IV antibiotics. 08/08 Patient feels his ankle is a little bit less painful but still significant pain with any movement. Did have a fever overnight and some sweating. No other new complaints. 08/09 Patient underwent washout of the ankle yesterday. In PACU he was hypoxic and hypercapnic. Concern he may have aspirated some degree during airway management. Patient was placed on BiPAP overnight. Mentation improved this morning. Waiting follow-up blood gas. Patient did cough up a lot of thick phlegm per nurse. Patient does have a bit o f a chronic cough and some congestion lately. Does not feel short of breath. But is on oxygen. Other history obtained from a friend who apparently is POA. She says he was diagnosed 5 years ago with metastatic lung cancer was not expected to live much longer than 3 to 6 months. He frequently hallucinates and that is attributed to his cancer medication. He seemed to qualify for oxygen by the cancer center but refused to take home oxygen. She stated that he frequently spits up bloody phlegm. She also stated she also stated that they wanted to do a sleep study on is a suspected obstructive sleep apnea but he refused. 08/10 Patient feels better. Is on 2 L nasal cannula. Realizes he likely need home oxygen. Need to evaluate to see if he is safe to go home or if he needs rehab. Review of Systems: denies headache/fever/chills/nausea/vomiting/chest or abdominal pain/diarrhea. Otherwise see above. Constitutional Vitals: Vital Signs Temp Pulse Resp BP Pulse Ox 97.8 F 110 H 19 141/76 90 08/10/21 07:01 08/10/21 07:49 08/10/21 07:49 08/10/21 07:01 08/10/21 07:49 Period Temp Pulse Resp BP Sys/Virgen Pulse Ox Last 24 Hr 97.8 F-100.4 F 29-117 16-27 109-162/56-95 79-97 Intake and Output 08/09/21 08/10/21 08/10/21 21:59 05:59 13:59 Intake Total 1084 1780 Output Total 1250 550 Balance -166 1230 Weight 91.682 kg Intake & Output: Intake & Output 08/09/21 08/10/21 08/10/21 21:59 05:59 13:59 Intake Total 1084 1780 Output Total 1250 550 Balance -166 1230 Weight 91.682 kg Intake: IV 604 500 Cleocin 600 mg In Dextrose 5% 54 in Water 50 ml @ 100 mls/hr IV Q8H NAS Rx#:[id number] Vancomycin 1,500 mg In Sodium 500 500 Chloride 0.9% 500 ml @ 333.3 mls/hr IV Q12H NAS Rx#: [id number] Rocephin 2 gm In Dextrose 5% in 50 Water 50 ml @ 100 mls/hr IV Q24H NAS Rx#:[id number] Oral 480 1280 Output: Void Amount 1250 550 Other: Meal Dinner Percent of Meal Consumed 100% Feeding Ability Independent Urine Appearance Clear Clear Urine Color Pale Bright Yellow Urine Odor Normal Stool Size Moderate Stool Color Brown Stool Consistency Formed # Bowel Movements 1 Exam: General: Alert, Awake, No acute Distress Eyes/N/T: EOMI, Head/Neck: neck supple, CV: RRR, No murmurs, Pulm: mild left side rhonchi, right side clear but diminished, no wheezing Abd: soft, nontender, +BS x4 Ext: no clubbing/cyanosis/edema LLE. RLE in dressings Neuro: Alert, no focal deficits, moves all extremities, Skin: warm/dry OBJ DATA Labs CBC & Chem 7: 08/10/21 06:20 08/10/21 06:19 Labs: Abnormal Lab Results 08/10/21 08/10/2108/09/22 06:20 06:19 13:13 WBC 11.7 H RBC 3.81 L Hgb 10.3 L Hct 32.8 L POC Hct 37 L MCHC RDW 16.2 H MPV 10.6 H Neut % (Auto) Lymph % (Auto) 8.8 L [place] % (Auto) 12.2 H Lymph # (Auto) 1.03 L [place] # (Auto) 1.43 H Lymphocytes % Monocytes % (Manual) Absolute Neutrophils 9.08 H RBC Morphology Polychromasia Anisocytosis Sodium Potassium Chloride POC BUN 29 H BUN 28 H Glucose 115 H POC Glucose 144 H Hemoglobin A1c Calcium 8.2 L POC WB Ioniz Calcium 1.09 L Phosphorus 1.6 L Direct Bilirubin GGT 69 H C-Reactive Protein 25.30 H NT-Pro-B Natriuret Pep Total Protein Albumin 3.1 L Globulin Albumin/Globulin Ratio 0.9 L Synovial Neutrophils Urine Opiates Screen Ur Amphetamines Screen U Marijuana (THC) Screen 08/09/21 08/09/21 08/09/21 11:00 05:51 05:51 WBC 13.0 H RBC 4.41 L Hgb 11.9 L Hct 38.5 L POC Hct MCHC 30.9 L RDW 16.2 H MPV 10.5 H Neut % (Auto) 89.6 H Lymph % (Auto) 4.9 L [place] % (Auto) Lymph # (Auto) 0.63 L [place] # (Auto) Lymphocytes % Monocytes % (Manual) Absolute Neutrophils 11.63 H RBC Morphology Polychromasia Anisocytosis Sodium Potassium 5.5 H Chloride POC BUN BUN 24 H Glucose 158 H POC Glucose Hemoglobin A1c Calcium POC WB Ioniz Calcium Phosphorus Direct Bilirubin GGT C-Reactive Protein NT-Pro-B Natriuret Pep 225.0 H Total Protein Albumin Globulin Albumin/Globulin Ratio Synovial Neutrophils Urine Opiates Screen Ur Amphetamines Screen U Marijuana (THC) Screen 08/08/21 08/08/21 08/08/21 15:45 10:00 05:23 WBC RBC Hgb Hct POC Hct MCHC RDW MPV Neut % (Auto) Lymph % (Auto) [place] % (Auto) Lymph # (Auto) [place] # (Auto) Lymphocytes % Monocytes % (Manual) Absolute Neutrophils RBC Morphology Polychromasia Anisocytosis Sodium 130 L Potassium Chloride 93 L POC BUN BUN Glucose 114 H POC Glucose Hemoglobin A1c Calcium POC WB Ioniz Calcium Phosphorus Direct Bilirubin 0.3 H GGT 75 H C-Reactive Protein 42.30 H NT-Pro-B Natriuret Pep Total Protein Albumin Globulin 4.7 H Albumin/Globulin Ratio 0.7 L Synovial Neutrophils 94 H Urine Opiates Screen Suspect positive A Ur Amphetamines Screen Suspect positive A U Marijuana (THC) Screen Suspect positive A 08/08/21 08/07/21 08/07/21 05:23 13:51 13:51 WBC 12.9 H RBC 4.45 L Hgb 11.9 L Hct 38.7 L POC Hct MCHC 30.7 L RDW 16.5 H MPV Neut % (Auto) Lymph % (Auto) [place] % (Auto) Lymph # (Auto) [place] # (Auto) Lymphocytes % 10 L Monocytes % (Manual) 18 H Absolute Neutrophils RBC Morphology Abnormal A Polychromasia Few A Anisocytosis 1+ A Sodium Potassium Chloride 93 L POC BUN BUN 24 H Glucose 124 H POC Glucose Hemoglobin A1c 6.4 H Calcium POC WB Ioniz Calcium Phosphorus Direct Bilirubin GGT C-Reactive Protein 25.90 H NT-Pro-B Natriuret Pep Total Protein 8.5 H Albumin Globulin 4.7 H Albumin/Globulin Ratio 0.8 L Synovial Neutrophils Urine Opiates Screen Ur Amphetamines Screen U Marijuana (THC) Screen 08/07/21 13:51 WBC 13.3 H RBC 4.54 L Hgb 12.4 L Hct 38.5 L POC Hct MCHC RDW 16.3 H MPV Neut % (Auto) Lymph % (Auto) 10.1 L [place] % (Auto) 15.5 H Lymph # (Auto) 1.35 L [place] # (Auto) 2.06 H Lymphocytes % Monocytes % (Manual) Absolute Neutrophils 9.77 H RBC Morphology Polychromasia Anisocytosis Sodium Potassium Chloride POC BUN BUN Glucose POC Glucose Hemoglobin A1c Calcium POC WB Ioniz Calcium Phosphorus Direct Bilirubin GGT C-Reactive Protein NT-Pro-B Natriuret Pep Total Protein Albumin Globulin Albumin/Globulin Ratio Synovial Neutrophils Urine Opiates Screen Ur Amphetamines Screen U Marijuana (THC) Screen Meds: Medications Acetaminophen (Acetaminophen 325 Mg Tablet) 650 mg PO Q6HP PRN; Protocol PRN Reason: Per Pain Protocol/Fever > 101 Last Admin: 08/09/21 05:40 Dose: 650 mg Documented by: Hydrocodone Bitart/Acetaminophen (Hydrocodone/Apap 5/325mg Tablet) 1 tab PO Q4HP PRN PRN Reason: PAIN LEVEL 3-6 Last Admin: 08/10/21 07:43 Dose: 1 tab Documented by: Albuterol/Ipratropium (Ipratropium/Albuterol 3 Ml Ampul.Neb) 3 ml NEB Q4HP PRN PRN Reason: Shortness Of Breath Last Admin: 08/08/21 13:05 Dose: 3 ml Documented by: Atorvastatin Calcium (Atorvastatin 20 Mg Tablet) 20 mg PO QDAY [facility] Last Admin: 08/10/21 07:43 Dose: 20 mg Documented by: Dextrose (Dextrose 50% 50 Ml Vial) 0 ml IV UD PRN PRN Reason: Hypoglycemia Diagnostic Test (Pha) (Accu-Chek 1 Each Strip) 1 each FS ACHS [facility] Last Admin: 08/10/21 07:43 Dose: 1 each Documented by: Docusate Sodium (Docusate Sodium 100 Mg Capsule) 100 mg PO BID [facility] Last Admin: 08/10/21 07:43 Dose: 100 mg Documented by: Glucose (Dextrose 31 Gm Oral.Susp) 15 gm PO PRN PRN PRN Reason: Hypoglycemia Potassium Chloride 40 meq/ (Dextrose) 520 mls @ 130 mls/hr IV UD PRN PRN Reason: Potassium < 3 Magnesium Sulfate (Magnesium Sulfate) 2 gm in 50 mls @ 50 mls/hr IV UD PRN PRN Reason: Magnesium </= 1.6 Ceftriaxone Sodium 2 gm/ (Dextrose) 50 mls @ 100 mls/hr IV Q24H [facility]; Protocol Last Infusion: 08/09/21 14:49 Dose: Infused Documented by: Vancomycin HCl 1,500 mg/ (Sodium Chloride) 500 mls @ 333.3 mls/hr IV Q12H [facility] Last Infusion: 08/09/21 22:19 Dose: Infused Documented by: Acetaminophen (Ofirmev) 650 mg in 65 mls @ 130 mls/hr IV Q6HP PRN; Protocol PRN Reason: PAIN/FEVER > 101 Insulin Human Lispro (Insulin Lispro 1 Unit/0.01 Ml Unit) [address] [facility]; Protocol Last Admin: 08/10/21 07:44 Dose: Not Given Documented by: Labetalol HCl (Labetalol 5 Mg/Ml Ml) 0 mg IV Q2HP PRN PRN Reason: Hypertension Metoclopramide HCl (Metoclopramide 10 Mg/2 Ml Vial) 10 mg IV Q6HP PRN PRN Reason: Nausea And Vomiting Morphine Sulfate (Morphine 4 Mg/Ml Vial) 0 mg IV Q3HP PRN PRN Reason: Pain Last Admin: 08/08/21 00:15 Dose: 3 mg Documented by: Ondansetron HCl (Ondansetron 4 Mg/2 Ml Vial) 4 mg IV Q4HP PRN PRN Reason: Nausea And Vomiting Lorlatinib 100 Mg (Tablet) 1 dose PO DAILY [facility] Last Admin: 08/10/21 07:38 Dose: Not Given Documented by: Polyethylene Glycol (Polyethylene Glycol 3350 17 Gm Packet) 17 gm PO DAILYP PRN PRN Reason: Constipation Potassium Chloride (Potassium Chloride 20 Meq Tablet) 40 meq PO UD PRN PRN Reason: Potssium is 3-3.5 Potassium Chloride (Potassium Chloride 20 Meq Tablet) 40 meq PO UD PRN PRN Reason: Potassium < 3 Senna (Sennosides 1 Tablet) 2 tab PO DAILYP PRN PRN Reason: Constipation Sodium Chloride (0.9 % Sodium Chloride 10 Ml Syringe) 10 ml IV Q8 [facility] Last Admin: 08/10/21 04:00 Dose: 10 ml Documented by: Vancomycin HCl (Vancomycin Per Pharmacy) 1 order IV UD [facility]; Protocol A/P Narrative A/P Narrative: A: *Septic Right ankle joint: s/p joint washout (08/08) of purulent fluid -BC neg thus far *SIRS: 2/2 above -borderline fever last night -leukocytosis starting to improve *Acute hypoxic/hypercapnic respiratory failure: suspected aspiration periop + underlying chronic lung impairment -on bipap o/n, now off *Oropharyngeal dysphagia, mild (h/o aspiration per POA): *h/o metastatic NSCLC: follows with mamadou -refused home oxygen recommended by oncology *likely RENEE: refused recommendation to have sleep study *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 *h/o visual/auditory hallucinations attributed to his cancer medication: of note pt uses methamphetamines *DM: diet controlled *HTN: *Anemia, chronic: *Substance abuse w/Meth via nasal entry, denies IV: *Anxiety: P: -wean down O2, doubt able to wean off given h/o home O2 recommendation and pulm compromise chronic -MRI right foot -Vanc/Rocephin, -Ortho following -BC/Aspirate cx pending -vistaril for anxiety -SSI -pt/ot -Dysphagia diet per ST -ppx: lovenox Time Spent With Patient Time: Total time spent is greater than 50% in coordination of care (as documented) at patient's floor/unit and/or counseling patient: QUALITY VTE Deep Vein Thrombosis/Pulmonary Embolism Present on Admission: No
--- NOTE | 2021-08-10 09:16 | XRay Report ---
HISTORY: Follow-up pulmonary infiltrates FINDINGS: Moderate diffuse alveolar infiltrates are present in both lungs. Is also a thick band of atelectasis oriented vertically medially in the left lower lobe. Right diaphragm remains severely elevated. There is no pneumothorax or pleural effusion. Comparison with the prior exam from 08/09/21 shows the infiltrates beginning to improve. IMPRESSION: Improving widespread bilateral pulmonary infiltrates with an enlarging band of discoid atelectasis left lower lobe Interpreted and Authenticated by: Vadim Bryant 08/10/21
[2021-08-10] MEDS ORDERED: METOPROLOL TARTRATE 50 MG TABLET PO ONE (10:02)
[2021-08-10] MEDS: cefTRIAXone 2 GM in DEXTROSE 5% IN WATER 50 ML IV SCH (10:25)
[2021-08-10] MEDS: hydrOXYzine 25 MG TABLET PO PRN ×3 (10:25→23:01)
[2021-08-10] MEDS: NEUTRA PHOS 1 PACKET PO SCH ×2 (10:26→20:10)
[2021-08-10] MEDS: ENOXAPARIN 40 MG/0.4 ML SYRINGE SQ SCH (10:26)
[2021-08-10] MEDS ORDERED: ALBUMIN HUMAN 12.5 GM/50 ML BAG IV ONE (11:40)
[2021-08-10] MEDS ORDERED: FUROSEMIDE 40 MG/4 ML VIAL IV ONE (11:40)
--- NOTE | 2021-08-10 11:40 | Discharge Summary ---
Discharge Provider Provider Patient information: Note initiated : 08/10/21 at 11:37 am Service Date, if different from initiated Date: [] Patient: Blake Bates 66 y/o M admitted on 08/07/21 for right heel pain. Chief Complaint: [] Date of admission: 08/07/21 17:40 Primary care physician: Parul Bernardo DO Consults: 08/07/21 Consult to Physician [CONS] Stat Comment: Consulting Provider: Corey Doherty Reason For Exam: Physician to Consult 08/07/21 16:11 Consult to Physician [CONS] Stat Comment: Consulting Provider: Filippo Simeon Reason For Exam: Physician to Consult Discharge Meds Discharge Medications Home Medications cholecalciferol (vitamin D3) 50 mcg (2,000 unit) capsule 2,000 unit PO QDAY 06/23/19 [History Confirmed 08/07/21 Last Taken Unknown] multivitamin,[id number] (Complete Multivitamin) 1 tab PO QDAY 06/23/19 [History Confirmed 08/07/21 Last Taken Unknown] fluticasone propionate 50 mcg/actuation nasal spray,suspension (Flonase Allergy Relief) 1 spray INTRANASAL QDAY #18.2 ml 10/07/19 [Rx Confirmed 08/07/21 Last Taken Unknown] atorvastatin 20 mg tablet 60 mg PO QDAY tab 07/25/20 [History Confirmed 08/07/21 Last Taken 08/06/21] lorlatinib 100 mg tablet 100 mg PO QDAY 07/25/20 [History Confirmed 08/07/21 Last Taken 08/06/21] hydrochlorothiazide 12.5 mg tablet 12.5 mg PO QDAY #90 tab 02/27/21 [Rx Confirmed 08/07/21 Last Taken 08/06/21] furosemide 20 mg tablet 20 mg PO QAM #60 tab 03/30/21 [Rx Confirmed 08/07/21 Last Taken 08/06/21] albuterol sulfate 90 mcg/actuation aerosol inhaler 2 puff INHALATION Q6H PRN #8.5 g 04/17/21 [Rx Confirmed 08/07/21 Last Taken 08/06/21] atorvastatin 20 mg tablet 20 mg PO QDAY 04/17/21 [History Confirmed 08/07/21 Last Taken 08/06/21] COURSE Hospital Course Hospital course: Interval history: History of present illness: Mr. Bates is a 66 year old M Reports increasing redness pain and swelling to his right ankle since Saturday. No reported injury. Unable to walk on it at this point. No fevers and chills. In the ED he is tachycardic blood pressure stable, leukocytosis. CRP quite elevated. Ultrasound and x-ray were done of the ankle leg showed no DVT but likely tenosynovitis along the medial side of the ankle. On examination appear to be cellulitic. Case discussed with Dr. Simeon who felt no immediate need for joint aspiration and to treat with IV antibiotics. 08/08 Patient feels his ankle is a little bit less painful but still significant pain with any movement. Did have a fever overnight and some sweating. No other new complaints. 08/09 Patient underwent washout of the ankle yesterday. In PACU he was hypoxic and hypercapnic. Concern he may have aspirated some degree during airway management. Patient was placed on BiPAP overnight. Mentation improved this morning. Waiting follow-up blood gas. Patient did cough up a lot of thick phlegm per nurse. Patient does have a bit of a chronic cough and some congestion lately. Does not feel short of breath. But is on oxygen. Other history obtained from a friend who apparently is POA. She says he was diagnosed 5 years ago with metastatic lung cancer was not expected to live much longer than 3 to 6 months. He frequently hallucinates and that is attributed to his cancer medication. He seemed to qualify for oxygen by the cancer center but refused to take home oxygen. She stated that he frequently spits up bloody phlegm. She also stated she also stated that they wanted to do a sleep study on is a suspected obstructive sleep apnea but he refused. 08/10 Patient feels better. Is on 2 L nasal cannula. Realizes he likely need home oxygen. Need to evaluate to see if he is safe to go home or if he needs rehab. 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 *h/o visual/auditory hallucinations attributed to his cancer medication: of note pt uses methamphetamines *DM: diet controlled *HTN: *Anemia, chronic: *Substance abuse w/Meth via nasal entry, denies IV: *Anxiety: Discharge diagnosis: Septic arthritis right ankle joint SIRS acute hypoxic hypercapnic respirato Secondary discharge diagnosis: Oral pharyngeal dysphagia history of metastatic non-small cell lung cancer likely obstructive sleep apnea right diaphragmatic paralysis history of visual and auditory hallucinations attributed to cancer medication diabetes hypertension chronic anemia substance abuse with methamphetamines anxiety Time Spent with Patient Time attestation: Total time spent providing and/or coordinating discharge services: Time spent: Greater than 30 minutes EXAM Constitutional Vitals: Temp Pulse Resp BP Pulse Ox 97.8 F 112 H 26 H 164/86 90 08/10/21 07:01 08/10/21 11:02 08/10/21 10:01 08/10/21 11:02 08/10/21 11:02 Discharge Data Data Completed and Pending Labs on day of discharge: Labs from last 24 hours 08/10/21 08/10/21 08/10/21 08:12 06:20 06:19 WBC 11.7 H RBC 3.81 L Hgb 10.3 L Hct 32.8 L POC Hct MCV 86.1 MCH 27.0 MCHC 31.4 RDW 16.2 H Plt Count 217 MPV 10.6 H Neut % (Auto) 77.8 Lymph % (Auto) 8.8 L [place] % (Auto) 12.2 H Eos % (Auto) 0.8 Baso % (Auto) 0.4 Lymph # (Auto) 1.03 L [place] # (Auto) 1.43 H Eos # (Auto) 0.09 Baso # (Auto) 0.05 Absolute Neutrophils 9.08 H POC Sodium Sodium 137 POC Potassium Potassium 4.3 POC Chloride Chloride 96 Carbon Dioxide 30 POC Total CO2 Anion Gap 11.0 POC BUN BUN 28 H Creatinine 0.9 POC Creatinine GFR Calculation 90 Glucose 115 H POC Glucose Uric Acid 5.9 Calcium 8.2 L POC WB Ioniz Calcium Phosphorus 1.6 L Magnesium 2.4 Total Bilirubin 0.2 Direct Bilirubin < 0.2 GGT 69 H AST 18 ALT 16 Alkaline Phosphatase 112 Lactate Dehydrogenase 150 C-Reactive Protein 25.30 H NT-Pro-B Natriuret Pep Total Protein 6.4 Albumin 3.1 L Globulin 3.3 Albumin/Globulin Ratio 0.9 L Triglycerides 127 Vancomycin Trough 17.9 08/09/21 08/09/21 13:13 11:00 WBC RBC Hgb Hct POC Hct 37 L MCV MCH MCHC RDW Plt Count MPV Neut % (Auto) Lymph % (Auto) [place] % (Auto) Eos % (Auto) Baso % (Auto) Lymph # (Auto) [place] # (Auto) Eos # (Auto) Baso # (Auto) Absolute Neutrophils POC Sodium 138 Sodium POC Potassium 4.4 Potassium POC Chloride 97 Chloride Carbon Dioxide POC Total CO2 30 Anion Gap POC BUN 29 H BUN Creatinine POC Creatinine 0.9 GFR Calculation Glucose POC Glucose 144 H Uric Acid Calcium POC WB Ioniz Calcium 1.09 L Phosphorus Magnesium Total Bilirubin Direct Bilirubin GGT AST ALT Alkaline Phosphatase Lactate Dehydrogenase C-Reactive Protein NT-Pro-B Natriuret Pep 225.0 H Total Protein Albumin Globulin Albumin/Globulin Ratio Triglycerides Vancomycin Trough Preliminary micro results at discharge 08/07/21 16:37 Blood Culture - Preliminary Blood 08/07/21 16:24 Blood Culture - Preliminary Blood 08/08/21 15:39 Gram Stain - Preliminary Ankle - Right Anaerobic Culture - Preliminary 08/08/21 15:39 Fungal Smear - Preliminary Ankle - Right Discharge Plan Patient/Caregiver Discharge Instructions Activity: increase activity as tolerated Activity Restrictions/Additional Instructions: 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 Prescriptions: Continued hydrochlorothiazide 12.5 mg tablet 12.5 mg tablet 12.5 mg PO QDAY Qty: 90 1RF furosemide 20 mg tablet 20 mg PO QAM Qty: 60 3RF fluticasone propionate [Flonase Allergy Relief] 50 mcg/actuation sp ray,suspension 1 spray INTRANASAL QDAY Qty: 18.2 4RF Rx Instructions: administer into each nostril lorlatinib 100 mg tablet 100 mg PO QDAY 0RF atorvastatin 20 mg tablet 60 mg PO QDAY 0RF cholecalciferol (vitamin D3) 2,000 unit capsule 2,000 unit PO QDAY 0RF Complete Multivitamin tablet 1 tab PO QDAY 0RF atorvastatin 20 mg tablet 20 mg PO QDAY 0RF albuterol sulfate 90 mcg/actuation HFA aerosol inhaler 2 puff inhalation Q6H PRN (Reason: shortness of breath or wheezing) Qty: 8.5 2RF Follow Up Plan Follow up with: Parul Bernardo DO [Primary Care Provider] - Filippo Simeon MD [Physician] - Patient Disposition: Home, Self-Care Prognosis: Undetermined Overall status at discharge: patient is progressing back to baseline QUALITY VTE Deep Vein Thrombosis/Pulmonary Embolism Present on Admission: No
[2021-08-10] MEDS ORDERED: ADENOSINE 3 MG/ML VIAL IV ONE (11:50)
[2021-08-10] MEDS ORDERED: METOPROLOL TARTRATE 5 MG/5 ML VIAL IV ONE (11:56)
[2021-08-10] MEDS ORDERED: METOPROLOL TARTRATE 5 MG/5 ML VIAL IV PRN (12:01)
--- NOTE | 2021-08-10 12:40 | EKG ---
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 Measurements Intervals [place] Rate: 169 P: 0 [place]: QRS: -36 QRSD: 84 T: 38 QT: 286 QTc: 480 Interpretive Statements Supraventricular tachycardia Left axis deviation Electronically Signed On 08-10-2021 12:40:45 PST by Bhupinder Bryant M.D. /store/[email or web address]/[id number]
--- NOTE | 2021-08-10 12:41 | EKG ---
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 Measurements Intervals [place] Rate: 83 P: 55 [place]: 135 QRS: 1 QRSD: 94 T: 47 QT: 353 QTc: 415 Interpretive Statements Sinus rhythm Left atrial enlargement Electronically Signed On 08-10-2021 12:40:58 PST by Bhupinder Bryant M.D. /store/[email or web address]/[id number]
[2021-08-10] MEDS: VANCOMYCIN 1,500 MG in 0.9 % SODIUM CHLORIDE 500 ML IV SCH (14:15)
--- NOTE | 2021-08-10 14:39 | Magnetic Resonance Report ---
History: Right ankle pain and swelling, status post surgery to clean an infection, heel pain TECHNIQUE: Multiplanar imaging was performed using multiple pulse sequences. FINDINGS: On sagittal proton density series 8 image 9, a 3 x 4 mm bone chip is again seen along the anterior inferior border of the distal tibia. This is the same bone fragment seen on the x-ray done on 08/07/21. This is probably from an old injury. Adjacent to this there is a small osteophyte along the anterior border of the tibia. There is no edema in the adjacent distal tibia. Anterior and inferior to the bone chip there is an irregular collection of material within the joint capsule, which has low signal on all pulse sequences. It measures 8 x 18 x 18 mm. This is probably organized clot. This is less likely an infection since there is no bone marrow edema or erosion of cartilage. Posterior to the ankle joint there is small amount of normal joint fluid. Patient has severe tenosynovitis surrounding the ankle. The greatest involvement is in the flexor hallucis longus. There is also involvement in the posterior tibial, flexor digitorum longus and surrounding the peroneus longus and brevis. There is a split tear in the peroneus longus, behind the lateral malleolus. Calcaneus is normal without evidence of spur formation or infection. No abscess is present. There is mild inflammation around the distal Achilles tendon near its insertion into the calcaneus. There is no inflammation of the calcaneus. IMPRESSION: Collection of complex fluid in the anterior recess of the ankle joint. Signal characteristics suggest this is clot. Severe tenosynovitis along the posterior medial and lateral sides of the ankle Split tear in the peroneus longus tendon. No evidence of osteomyelitis or abscess Subcutaneous edema surrounding the ankle on all sides Interpreted and Authenticated by: Vadim Bryant 08/10/21
[2021-08-10] MEDS: morphine 4 MG/ML VIAL IV PRN ×3 (16:47→21:31)
[2021-08-10] MEDS ORDERED: METOPROLOL TARTRATE 50 MG TABLET PO SCH (21:00)
[2021-08-11] MEDS: HYDROcodone/APAP 5/325MG TABLET PO PRN ×5 (03:06→23:18)
[2021-08-11] MEDS: morphine 4 MG/ML VIAL IV PRN ×3 (03:39→20:07)
[2021-08-11] MEDS: 0.9 % SODIUM CHLORIDE 10 ML SYRINGE IV SCH ×4 (05:21→22:31)
[2021-08-11 07:28] LABS: Basophils # (Auto) 0.05 K/mcL (0.00-0.30); Basophils % (Auto) 0.5 % (0.0-2.0); Eosinophils # (Auto) 0.16 K/mcL (0.00-0.70); Eosinophils % (Auto) 1.7 % (0.0-7.0); Hematocrit 35.8 % (40.1-51.0); Hemoglobin 10.9 g/dL (13.7-17.5); Lymphocytes # (Auto) 1.06 K/mcL (1.50-4.80); Lymphocytes % (Auto) 11.2 % (15.5-49.0); Mean Corpuscular HGB Conc 30.4 g/dL (31.0-36.0); Mean Platelet Volume 10.5 fL (7.4-10.4); Monocytes # (Auto) 1.26 K/mcL (0.10-0.90); Monocytes % (Auto) 13.4 % (1.0-12.0); Neutrophils % (Auto) 73.2 % (38.0-78.0); Platelet Count 228 K/mcL (140-440); RBC 4.07 M/mcL (4.63-6.08); Red Cell Distribution Width 16.4 % (11.5-14.5); WBC 9.4 K/mcL (4.5-11.0)
[2021-08-11 07:50] LABS: Vancomycin,Random 5.2 ug/mL
[2021-08-11] MEDS: DOCUSATE SODIUM 100 MG CAPSULE PO SCH ×2 (07:56→20:07)
[2021-08-11] MEDS: INSULIN LISPRO 1 UNIT/0.01 ML UNIT SQ SCH ×4 (07:56→20:08)
[2021-08-11] MEDS: METOPROLOL SUCCINATE 50 MG TAB.XL.24H PO SCH (07:57)
[2021-08-11] MEDS: hydrOXYzine 25 MG TABLET PO PRN ×3 (07:57→23:18)
[2021-08-11] MEDS: ENOXAPARIN 40 MG/0.4 ML SYRINGE SQ SCH (07:57)
[2021-08-11] MEDS: ATORVASTATIN 20 MG TABLET PO SCH (07:57)
--- NOTE | 2021-08-11 07:57 | Internal Med Progress Note ---
SUBJECTIVE Subjective Patient information: Note initiated : 08/11/21 at 7:50 am Service Date, if different from initiated Date: [] Patient: Blake Bates a 66 y/o M admitted on 08/07/21 for right heel pain. Chief Complaint: [] Interval history: History of present illness: Mr. Bates is a 66 year old M Reports increasing redness pain and swelling to his right ankle since Saturday. No reported injury. Unable to walk on it at this point. No fevers and chills. In the ED he is tachycardic blood pressure stable, leukocytosis. CRP quite elevated. Ultrasound and x-ray were done of the ankle leg showed no DVT but likely tenosynovitis along the medial side of the ankle. On examination appear to be cellulitic. Case discussed with Dr. Simeon who felt no immediate need for joint aspiration and to treat with IV antibiotics. 08/08 Patient feels his ankle is a little bit less painful but still significant pain with any movement. Did have a fever overnight and some sweating. No other new complaints. 08/09 Patient underwent washout of the ankle yesterday. In PACU he was hypoxic and hypercapnic. Concern he may have aspirated some degree during airway management. Patient was placed on BiPAP overnight. Mentation improved this morning. Waiting follow-up blood gas. Patient did cough up a lot of thick phlegm per nurse. Patient does have a bit o f a chronic cough and some congestion lately. Does not feel short of breath. But is on oxygen. Other history obtained from a friend who apparently is POA. She says he was diagnosed 5 years ago with metastatic lung cancer was not expected to live much longer than 3 to 6 months. He frequently hallucinates and that is attributed to his cancer medication. He seemed to qualify for oxygen by the cancer center but refused to take home oxygen. She stated that he frequently spits up bloody phlegm. She also stated she also stated that they wanted to do a sleep study on is a suspected obstructive sleep apnea but he refused. 08/10 Patient feels better. Is on 2 L nasal cannula. Realizes he likely need home oxygen. Need to evaluate to see if he is safe to go home or if he needs rehab. 08/11 No new complaints or overnight event. Oxygen requirements 2 to 6 L. Leukocytosis resolved. Review of Systems: denies headache/fever/chills/nausea/vomiting/chest or abdominal pain/diarrhea. Otherwise see above. Constitutional Vitals: Vital Signs Temp Pulse Resp BP Pulse Ox 98.2 F 100 H 16 122/68 93 08/11/21 04:06 08/11/21 04:06 08/11/21 04:06 08/11/21 04:06 08/11/21 04:06 Period Temp Pulse Resp BP Sys/Virgen Pulse Ox Last 24 Hr 97.2 F-100.3 F 79-176 14-26 100-164/66-121 89-100 Intake and Output 08/10/21 08/11/21 08/11/21 21:59 05:59 13:59 Intake Total 1030 600 Output Total 1550 300 Balance -520 300 Weight 89.3 kg Intake & Output: Intake & Output 08/10/21 08/11/21 08/11/21 21:59 05:59 13:59 Intake Total 1030 600 Output Total 1550 300 Balance -520 300 Weight 89.3 kg Intake: IV 50 Oral 980 600 Output: Urine Catheter Amount 400 300 Void Amount 1150 Other: Meal Dinner Percent of Meal Consumed 75% Feeding Ability Independent Urine Appearance Clear Clear Urine Color Dark Yellow Dark Yellow Exam: General: Alert, Awake, No acute Distress Eyes/N/T: EOMI, Head/Neck: neck supple, CV: RRR, No murmurs, Pulm: mild left side rhonchi much improved, right side clear but diminished, no wheezing Abd: soft, nontender, +BS x4 Ext: no clubbing/cyanosis/edema LLE. RLE in dressings Neuro: Alert, no focal deficits, moves all extremities, Skin: warm/dry OBJ DATA Labs CBC & Chem 7: 08/11/21 06:17 08/10/21 06:19 Labs: Abnormal Lab Results 08/11/21 08/10/21 08/10/21 06:17 06:20 06:19 WBC 11.7 H RBC 4.07 L 3.81 L Hgb 10.9 L 10.3 L Hct 35.8 L 32.8 L POC Hct MCHC 30.4 L RDW 16.4 H 16.2 H MPV 10.5 H 10.6 H Neut % (Auto) Lymph % (Auto) 11.2 L 8.8 L [place] % (Auto) 13.4 H 12.2 H Lymph # (Auto) 1.06 L 1.03 L [place] # (Auto) 1.26 H 1.43 H Lymphocytes % Monocytes % (Manual) Absolute Neutrophils 9.08 H RBC Morphology Polychromasia Anisocytosis Sodium Potassium Chloride POC BUN BUN 28 H Glucose 115 H POC Glucose Calcium 8.2 L POC WB Ioniz Calcium Phosphorus 1.6 L Direct Bilirubin GGT 69 H C-Reactive Protein 25.30 H NT-Pro-B Natriuret Pep Albumin 3.1 L Globulin Albumin/Globulin Ratio 0.9 L Synovial Neutrophils Urine Opiates Screen Ur Amphetamines Screen U Marijuana (THC) Screen 08/09/21 08/09/21 08/09/21 13:13 11:00 05:51 WBC RBC Hgb Hct POC Hct 37 L MCHC RDW MPV Neut % (Auto) Lymph % (Auto) [place] % (Auto) Lymph # (Auto) [place] # (Auto) Lymphocytes % Monocytes % (Manual) Absolute Neutrophils RBC Morphology Polychromasia Anisocytosis Sodium Potassium 5.5 H Chloride POC BUN 29 H BUN 24 H Glucose 158 H POC Glucose 144 H Calcium POC WB Ioniz Calcium 1.09 L Phosphorus Direct Bilirubin GGT C-Reactive Protein NT-Pro-B Natriuret Pep 225.0 H Albumin Globulin Albumin/Globulin Ratio Synovial Neutrophils Urine Opiates Screen Ur Amphetamines Screen U Marijuana (THC) Screen 08/09/21 08/08/21 08/08/21 05:51 15:45 10:00 WBC 13.0 H RBC 4.41 L Hgb 11.9 L Hct 38.5 L POC Hct MCHC 30.9 L RDW 16.2 H MPV 10.5 H Neut % (Auto) 89.6 H Lymph % (Auto) 4.9 L [place] % (Auto) Lymph # (Auto) 0.63 L [place] # (Auto) Lymphocytes % Monocytes % (Manual) Absolute Neutrophils 11.63 H RBC Morphology Polychromasia Anisocytosis Sodium Potassium Chloride POC BUN BUN Glucose POC Glucose Calcium POC WB Ioniz Calcium Phosphorus Direct Bilirubin GGT C-Reactive Protein NT-Pro-B Natriuret Pep Albumin Globulin Albumin/Globulin Ratio Synovial Neutrophils 94 H Urine Opiates Screen Suspect positive A Ur Amphetamines Screen Suspect positive A U Marijuana (THC) Screen Suspect positive A 08/08/21 08/08/21 05:23 05:23 WBC RBC Hgb Hct POC Hct MCHC RDW MPV Neut % (Auto) Lymph % (Auto) [place] % (Auto) Lymph # (Auto) [place] # (Auto) Lymphocytes % 10 L Monocytes % (Manual) 18 H Absolute Neutrophils RBC Morphology Abnormal A Polychromasia Few A Anisocytosis 1+ A Sodium 130 L Potassium Chloride 93 L POC BUN BUN Glucose 114 H POC Glucose Calcium POC WB Ioniz Calcium Phosphorus Direct Bilirubin 0.3 H GGT 75 H C-Reactive Protein 42.30 H NT-Pro-B Natriuret Pep Albumin Globulin 4.7 H Albumin/Globulin Ratio 0.7 L Synovial Neutrophils Urine Opiates Screen Ur Amphetamines Screen U Marijuana (THC) Screen Meds: Medications Acetaminophen (Acetaminophen 325 Mg Tablet) 650 mg PO Q6HP PRN; Protocol PRN Reason: Per Pain Protocol/Fever > 101 Last Admin: 08/09/21 05:40 Dose: 650 mg Documented by: Hydrocodone Bitart/Acetaminophen (Hydrocodone/Apap 5/325mg Tablet) 1 tab PO Q4HP PRN PRN Reason: PAIN LEVEL 3-6 Last Admin: 08/11/21 03:06 Dose: 1 tab Documented by: Albuterol/Ipratropium (Ipratropium/Albuterol 3 Ml Ampul.Neb) 3 ml NEB Q4HP PRN PRN Reason: Shortness Of Breath Last Admin: 08/08/21 13:05 Dose: 3 ml Documented by: Atorvastatin Calcium (Atorvastatin 20 Mg Tablet) 20 mg PO QDAY [facility] Last Admin: 08/10/21 07:43 Dose: 20 mg Documented by: Dextrose (Dextrose 50% 50 Ml Vial) 0 ml IV UD PRN PRN Reason: Hypoglycemia Diagnostic Test (Pha) (Accu-Chek 1 Each Strip) 1 each FS ACHS [facility] Last Admin: 08/10/21 20:10 Dose: 1 each Documented by: Docusate Sodium (Docusate Sodium 100 Mg Capsule) 100 mg PO BID [facility] Last Admin: 08/10/21 20:10 Dose: 100 mg Documented by: Enoxaparin Sodium (Enoxaparin 40 Mg/0.4 Ml Syringe) 40 mg SQ DAILY [facility] Last Admin: 08/10/21 10:26 Dose: 40 mg Documented by: Glucose (Dextrose 31 Gm Oral.Susp) 15 gm PO PRN PRN PRN Reason: Hypoglycemia Hydroxyzine HCl (Hydroxyzine 25 Mg Tablet) 50 mg PO TIDP PRN PRN Reason: Anxiety Last Admin: 08/10/21 23:01 Dose: 50 mg Documented by: Potassium Chloride 40 meq/ (Dextrose) 520 mls @ 130 mls/hr IV UD PRN PRN Reason: Potassium < 3 Magnesium Sulfate (Magnesium Sulfate) 2 gm in 50 mls @ 50 mls/hr IV UD PRN PRN Reason: Magnesium </= 1.6 Ceftriaxone Sodium 2 gm/ (Dextrose) 50 mls @ 100 mls/hr IV Q24H [facility]; Protocol Last Infusion: 08/10/21 11:00 Dose: Infused Documented by: Acetaminophen (Ofirmev) 650 mg in 65 mls @ 130 mls/hr IV Q6HP PRN; Protocol PRN Reason: PAIN/FEVER > 101 Insulin Human Lispro (Insulin Lispro 1 Unit/0.01 Ml Unit) 0 unit SQ ACHS [facility]; Protocol Last Admin: 08/10/21 20:10 Dose: Not Given Documented by: Labetalol HCl (Labetalol 5 Mg/Ml Ml) 0 mg IV Q2HP PRN PRN Reason: Hypertension Metoclopramide HCl (Metoclopramide 10 Mg/2 Ml Vial) 10 mg IV Q6HP PRN PRN Reason: Nausea And Vomiting Metoprolol Succinate (Metoprolol Succinate 50 Mg Tab.Xl.24h) 100 mg PO DAILY [facility] Metoprolol Tartrate (Metoprolol Tartrate 5 Mg/5 Ml Vial) 5 mg IV Q2HP PRN PRN Reason: Tachyarrhythmias HR>110 Morphine Sulfate (Morphine 4 Mg/Ml Vial) 0 mg IV Q3HP PRN PRN Reason: Pain Last Admin: 08/11/21 03:39 Dose: 3 mg Documented by: Ondansetron HCl (Ondansetron 4 Mg/2 Ml Vial) 4 mg IV Q4HP PRN PRN Reason: Nausea And Vomiting Last Admin: 08/10/21 11:59 Dose: 4 mg Documented by: Lorlatinib 100 Mg (Tablet) 1 dose PO DAILY [facility] Last Admin: 08/10/21 07:38 Dose: Not Given Documented by: Polyethylene Glycol (Polyethylene Glycol 3350 17 Gm Packet) 17 gm PO DAILYP PRN PRN Reason: Constipation Potassium Chloride (Potassium Chloride 20 Meq Tablet) 40 meq PO UD PRN PRN Reason: Potssium is 3-3.5 Potassium Chloride (Potassium Chloride 20 Meq Tablet) 40 meq PO UD PRN PRN Reason: Potassium < 3 Senna (Sennosides 1 Tablet) 2 tab PO DAILYP PRN PRN Reason: Constipation Sodium Chloride (0.9 % Sodium Chloride 10 Ml Syringe) 10 ml IV Q8 [facility] Last Admin: 08/11/21 05:21 Dose: 10 ml Documented by: Vancomycin HCl (Vancomycin Per Pharmacy) 1 order IV UD [facility]; Protocol A/P Narrative A/P Narrative: A: *Septic Right ankle joint: s/p joint washout (08/08) of purulent fluid -BC neg thus far -MRI on osteo *SIRS: 2/2 above -intermittent borderline fevers -leukocytosis resolved *Acute hypoxic/hypercapnic respiratory failure: suspected aspiration periop + underlying chronic lung impairment -on 2-6L NC *suspect RENEE: *Oropharyngeal dysphagia, mild (h/o aspiration per POA): *h/o metastatic NSCLC: follows with [facility] -refused home oxygen recommended by oncology *likely RENEE: refused recommendation to have sleep study *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 *h/o visual/auditory hallucinations attributed to his cancer medication: of note pt uses methamphetamines *DM: diet controlled *HTN: *Anemia, chronic: *Substance abuse w/Meth via nasal entry, denies IV: *Anxiety: *h/o SVT: episode of SVT (08/10) that converted with 6mg adenosine P: -wean down O2, doubt able to wean off given h/o home O2 recommendation and pulm compromise chronic -Vanc/Rocephin, will need at least 2-wk IV therapy followed by Oral or Longer IV course -pending final BC/Aspirate cx pending, then place PICC -Ortho following -vistaril for anxiety -SSI -pt/ot -Dysphagia diet per ST -ppx: lovenox *Acute hypoxic/hypercapnic respiratory failure: suspected aspiration periop + underlying chronic lung impairment -on 2-6L NC *suspect RENEE: *Oropharyngeal dysphagia, mild (h/o aspiration per POA): *h/o metastatic NSCLC: follows with [facility] -refused home oxygen recommended by oncology *likely RENEE: refused recommendation to have sleep study *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 *h/o visual/auditory hallucinations attributed to his cancer medication: of note pt uses methamphetamines *DM: diet controlled *HTN: *Anemia, chronic: *Substance abuse w/Meth via nasal entry, denies IV: *Anxiety: P: -wean down O2, doubt able to wean off given h/o home O2 recommendation and pulm compromise chronic -MRI right foot -Vanc/Rocephin, will need IV abx for at least 2-weeks followed by or Oral or longer IV course -Ortho following -BC/Aspirate cx pending -vistaril for anxiety -SSI -pt/ot -Dysphagia diet per ST -ppx: lovenox Time Spent With Patient Time: Total time spent is greater than 50% in coordination of care (as documented) at patient's floor/unit and/or counseling patient: QUALITY VTE Deep Vein Thrombosis/Pulmonary Embolism Present on Admission: No
[2021-08-11] MEDS: [UNRECOGNIZED DRUG - OTHER] PO SCH (09:16)
[2021-08-11 09:37] LABS: Erythrocyte Sedimentation Rate 121 mm/hr (0-15)
[2021-08-11] MEDS ORDERED: 0.9 % SODIUM CHLORIDE 10 ML SYRINGE IV PRN (09:58)
[2021-08-11] MEDS: cefTRIAXone 2 GM in DEXTROSE 5% IN WATER 50 ML IV SCH (10:32)
[2021-08-11] MEDS: VANCOMYCIN 1,500 MG in 0.9 % SODIUM CHLORIDE 500 ML IV SCH (10:32)
--- NOTE | 2021-08-11 14:05 | Internal Med Progress Note ---
SUBJECTIVE Subjective Patient information: Note initiated : 08/12/21 at 2:00 pm Service Date, if different from initiated Date: [] Patient: Blake Bates 66 y/o M admitted on 08/07/21 for right heel pain. Chief Complaint: [] Interval history: History of present illness: Mr. Bates is a 66 year old male who reported increasing redness pain and sw elling to his right ankle since Saturday.The patient denied recent injury to his right ankle. He has not been able to walk on his right foot because of the pain. He denied fevers and chills. In the ED he is tachycardic but blood pressure was stable. Labs revealed leukocytosis and an markedly elevated CRP. Ultrasound and x-ray were done of the ankle leg showed no DVT but likely tenosynovitis along t he medial side of the ankle. Exam was notable for cellulitis over the right ankle. The patient was discussed with Dr. Simeon who felt no immediate need for joint aspiration and to treat with IV antibiotics. 08/08 Patient feels his ankle is a little bit less painful but still significant pain with any movement. Did have a fever overnight and some sweating. No other new complaints. 08/09 Patient underwent washout of the ankle yesterday. In PACU he was hypoxic and hypercapnic. Concern he may have aspirated some degree during airway management. Patient was placed on BiPAP overnight. Mentation improved this morning. Waiting follow-up blood gas. Patient did cough up a lot of thick phlegm per nurse. Patient does have a bit of a chronic cough and some congestion lately. Does not feel short of breath. But is on oxygen. Other history obtained from a friend who apparently is POA. She says he was diagnosed 5 years ago with metastatic lung cancer was not expected to live much longer than 3 to 6 months. He frequently hallucinates and that is attributed to his cancer medication. He seemed to qualify for oxygen by the cancer center but refused to take home oxygen. She stated that he frequently spits up bloody phlegm. She also stated she also stated that they wanted to do a sleep study on is a suspected obstructive sleep apnea but he refused. 08/10 Patient feels better. Is on 2 L nasal cannula. Realizes he likely need home oxygen. Need to evaluate to see if he is safe to go home or if he needs rehab. 08/11 No new complaints or overnight event. Oxygen requirements 2 to 6 L. Leukocytosis resolved. 08/12 Cultures from right ankle grew MRSA. Continuing Vancomycin IV dosed by pharmacy, discontinued Ceftriaxone. The patient contines to have fevers and CRP is trending up, discussed with orthopedic surgery. Discontinued opioid analgesic medications. Review of Systems:afebrile, denies chest pain, denies shortness of breath. Physical Exam Head: Atraumatic, normal inspection. Eyes: normal appearance, no scleral icterus. Neck: full ROM Respiratory: no respiratory distress, on nasal canula oxygen 1 L/min. Cardiovascular: normal rate and rhythm, S1, S2. GI/Abdominal: soft, nontender, no guarding. Extremities: right foot in boot Neurological: CN II-XII intact, intact motor, intact sensation. Psychiatric: normal mood. Skin: warm, normal color Constitutional Vitals: Vital Signs Temp Pulse Resp BP Pulse Ox 97.9 F 100 H 20 149/72 96 08/11/21 12:00 08/11/21 08:08 08/11/21 12:00 08/11/21 12:00 08/11/21 12:00 Period Temp Pulse Resp BP Sys/Virgen Pulse Ox Last 24 Hr 97.8 F-100.3 F 79-113 14-23 122-158/68-121 89-96 Intake and Output 08/11/21 08/11/21 08/11/21 05:59 13:59 21:59 Intake Total 600 290 Output Total 300 200 Balance 300 90 Intake & Output: Intake & Output 08/11/21 08/11/21 08/11/21 05:59 13:59 21:59 Intake Total 600 290 Output Total 300 200 Balance 300 90 Intake: IV 50 Rocephin 2 gm In Dextrose 5% in 50 Water 50 ml @ 100 mls/hr IV Q24H [facility] Rx#:[id number] Oral 600 240 Output: Urine Catheter Amount 300 Void Amount 200 Other: Meal Breakfast Percent of Meal Consumed 100% Urine Appearance Clear Clear Urine Color Dark Yellow Light [place] Urine Odor Normal OBJ DATA Labs CBC & Chem 7: 08/11/21 06:17 08/12/21 05:00 Labs: Abnormal Lab Results 08/11/21 08/10/21 08/10/21 06:17 06:20 06:19 WBC 11.7 H RBC 4.07 L 3.81 L Hgb 10.9 L 10.3 L Hct 35.8 L 32.8 L POC Hct MCHC 30.4 L RDW 16.4 H 16.2 H MPV 10.5 H 10.6 H Neut % (Auto) Lymph % (Auto) 11.2 L 8.8 L [place] % (Auto) 13.4 H 12.2 H Lymph # (Auto) 1.06 L 1.03 L [place] # (Auto) 1.26 H 1.43 H Absolute Neutrophils 9.08 H ESR 121 H Potassium POC BUN BUN 28 H Glucose 115 H POC Glucose Calcium 8.2 L POC WB Ioniz Calcium Phosphorus 1.6 L GGT 69 H C-Reactive Protein 25.30 H NT-Pro-B Natriuret Pep Albumin 3.1 L Albumin/Globulin Ratio 0.9 L Synovial Neutrophils 08/09/21 08/09/21 08/09/21 13:13 11:00 05:51 WBC RBC Hgb Hct POC Hct 37 L MCHC RDW MPV Neut % (Auto) Lymph % (Auto) [place] % (Auto) Lymph # (Auto) [place] # (Auto) Absolute Neutrophils ESR Potassium 5.5 H POC BUN 29 H BUN 24 H Glucose 158 H POC Glucose 144 H Calcium POC WB Ioniz Calcium 1.09 L Phosphorus GGT C-Reactive Protein NT-Pro-B Natriuret Pep 225.0 H Albumin Albumin/Globulin Ratio Synovial Neutrophils 08/09/21 08/08/21 05:51 15:45 WBC 13.0 H RBC 4.41 L Hgb 11.9 L Hct 38.5 L POC Hct MCHC 30.9 L RDW 16.2 H MPV 10.5 H Neut % (Auto) 89.6 H Lymph % (Auto) 4.9 L [place] % (Auto) Lymph # (Auto) 0.63 L [place] # (Auto) Absolute Neutrophils 11.63 H ESR Potassium POC BUN BUN Glucose POC Glucose Calcium POC WB Ioniz Calcium Phosphorus GGT C-Reactive Protein NT-Pro-B Natriuret Pep Albumin Albumin/Globulin Ratio Synovial Neutrophils 94 H Meds: Medications Acetaminophen (Acetaminophen 325 Mg Tablet) 650 mg PO Q6HP PRN; Protocol PRN Reason: Per Pain Protocol/Fever > 101 Last Admin: 08/09/21 05:40 Dose: 650 mg Documented by: Hydrocodone Bitart/Acetaminophen (Hydrocodone/Apap 5/325mg Tablet) 1 tab PO Q4HP PRN PRN Reason: PAIN LEVEL 3-6 Last Admin: 08/11/21 11:57 Dose: 1 tab Documented by: Albuterol/Ipratropium (Ipratropium/Albuterol 3 Ml Ampul.Neb) 3 ml NEB Q4HP PRN PRN Reason: Shortness Of Breath Last Admin: 08/08/21 13:05 Dose: 3 ml Documented by: Atorvastatin Calcium (Atorvastatin 20 Mg Tablet) 20 mg PO QDAY [facility] Last Admin: 08/11/21 07:57 Dose: 20 mg Documented by: Dextrose (Dextrose 50% 50 Ml Vial) 0 ml IV UD PRN PRN Reason: Hypoglycemia Diagnostic Test (Pha) (Accu-Chek 1 Each Strip) 1 each FS ACHS [facility] Last Admin: 08/11/21 11:53 Dose: 1 each Documented by: Docusate Sodium (Docusate Sodium 100 Mg Capsule) 100 mg PO BID [facility] Last Admin: 08/11/21 07:56 Dose: 100 mg Documented by: Enoxaparin Sodium (Enoxaparin 40 Mg/0.4 Ml Syringe) 40 mg SQ DAILY [facility] Last Admin: 08/11/21 07:57 Dose: 40 mg Documented by: Glucose (Dextrose 31 Gm Oral.Susp) 15 gm PO PRN PRN PRN Reason: Hypoglycemia Heparin Sodium (Porcine) (Heparin Flush 10 Units/Ml 5 Ml Syringe) 2 ml IV Q12 [facility] Hydroxyzine HCl (Hydroxyzine 25 Mg Tablet) 50 mg PO TIDP PRN PRN Reason: Anxiety Last Admin: 08/11/21 07:57 Dose: 50 mg Documented by: Potassium Chloride 40 meq/ (Dextrose) 520 mls @ 130 mls/hr IV UD PRN PRN Reason: Potassium < 3 Magnesium Sulfate (Magnesium Sulfate) 2 gm in 50 mls @ 50 mls/hr IV UD PRN PRN Reason: Magnesium </= 1.6 Ceftriaxone Sodium 2 gm/ (Dextrose) 50 mls @ 100 mls/hr IV Q24H [facility]; Protocol Last Infusion: 08/11/21 11:05 Dose: Infused Documented by: Acetaminophen (Ofirmev) 650 mg in 65 mls @ 130 mls/hr IV Q6HP PRN; Protocol PRN Reason: PAIN/FEVER > 101 Vancomycin HCl 1,500 mg/ (Sodium Chloride) 500 mls @ 333.3 mls/hr IV Q24H [facility] Last Admin: 08/11/21 10:32 Dose: 333.3 mls/hr Documented by: Insulin Human Lispro (Insulin Lispro 1 Unit/0.01 Ml Unit) 0 unit SQ ACHS [facility]; Protocol Last Admin: 08/11/21 11:53 Dose: Not Given Documented by: Labetalol HCl (Labetalol 5 Mg/Ml Ml) 0 mg IV Q2HP PRN PRN Reason: Hypertension Metoclopramide HCl (Metoclopramide 10 Mg/2 Ml Vial) 10 mg IV Q6HP PRN PRN Reason: Nausea And Vomiting Metoprolol Succinate (Metoprolol Succinate 50 Mg Tab.Xl.24h) 100 mg PO DAILY [facility] Last Admin: 08/11/21 07:57 Dose: 100 mg Documented by: Metoprolol Tartrate (Metoprolol Tartrate 5 Mg/5 Ml Vial) 5 mg IV Q2HP PRN PRN Reason: Tachyarrhythmias HR>110 Morphine Sulfate (Morphine 4 Mg/Ml Vial) 0 mg IV Q3HP PRN PRN Reason: Pain Last Admin: 08/11/21 03:39 Dose: 3 mg Documented by: Ondansetron HCl (Ondansetron 4 Mg/2 Ml Vial) 4 mg IV Q4HP PRN PRN Reason: Nausea And Vomiting Last Admin: 08/10/21 11:59 Dose: 4 mg Documented by: Lorlatinib 100 Mg (Tablet) 1 dose PO DAILY [facility] Last Admin: 08/11/21 09:16 Dose: Not Given Documented by: Polyethylene Glycol (Polyethylene Glycol 3350 17 Gm Packet) 17 gm PO DAILYP PRN PRN Reason: Constipation Potassium Chloride (Potassium Chloride 20 Meq Tablet) 40 meq PO UD PRN PRN Reason: Potssium is 3-3.5 Potassium Chloride (Potassium Chloride 20 Meq Tablet) 40 meq PO UD PRN PRN Reason: Potassium < 3 Senna (Sennosides 1 Tablet) 2 tab PO DAILYP PRN PRN Reason: Constipation Sodium Chloride (0.9 % Sodium Chloride 10 Ml Syringe) 10 ml IV Q8 [facility] Last Admin: 08/11/21 05:21 Dose: 10 ml Documented by: Sodium Chloride (0.9 % Sodium Chloride 10 Ml Syringe) 10 ml IV UD PRN PRN Reason: FLUSH Sodium Chloride (0.9 % Sodium Chloride 10 Ml Syringe) 10 ml IV Q12 [facility] Vancomycin HCl (Vancomycin Per Pharmacy) 1 order IV UD [facility]; Protocol A/P Narrative A/P Narrative: A: *Septic Right ankle joint: s/p joint washout -culture grew MRSA *Persistent fevers of uncertain cause *Chronic hypoxic/hypercapnic respiratory failure *Oropharyngeal dysphagia, mild (h/o aspiration per POA): *h/o metastatic NSCLC: follows with [facility] -refused home oxygen recommended by oncology *Probable RENEE: refused recommendation to have sleep study *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 -pending final BC/Aspirate cx pending, then place PICC -Oxygen supplementation -Follow fever trend and CRP. -Check procalcitonin. -COVID PANTHER PCR -CECI influenza A+B HAYDEE -Ortho following -Vistaril for anxiety -Tylenol and Toradol for pain. -Discontinue opioid analgesics. 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 *h/o visual/auditory hallucinations attributed to his cancer medication: of note pt uses methamphetamines *DM: diet controlled *HTN: *Anemia, chronic: *Substance abuse w/Meth via nasal entry, denies IV: *Anxiety: P: -wean down O2, doubt able to wean off given h/o home O2 recommendation and pulm compromise chronic -MRI right foot -Vanc/Rocephin, will need IV abx for at least 2-weeks followed by or Oral or longer IV course -Ortho following -BC/Aspirate cx pending -vistaril for anxiety -SSI -pt/ot -Dysphagia diet per ST -ppx: lovenox Time Spent With Patient Time: Total time spent is greater than 50% in coordination of care (as documented) at patient's floor/unit and/or counseling patient: QUALITY VTE Deep Vein Thrombosis/Pulmonary Embolism Present on Admission: No
[2021-08-11] MEDS: LABETALOL 5 MG/ML ML IV PRN ×2 (16:05→23:26)
[2021-08-12] MEDS: HYDROcodone/APAP 5/325MG TABLET PO PRN ×2 (04:45→08:54)
[2021-08-12] MEDS: 0.9 % SODIUM CHLORIDE 10 ML SYRINGE IV SCH ×6 (04:45→20:53)
[2021-08-12] MEDS: morphine 4 MG/ML VIAL IV PRN (04:45)
[2021-08-12 07:50] LABS: ALT/SGPT 24 U/L (<40); AST/SGOT 22 U/L (<40); Albumin 3.4 gm/dL (3.2-5.2); Albumin/Globulin Ratio 0.9 (1.0-2.3); Alkaline Phosphatase 206 U/L (39-117); Bilirubin,Direct < 0.2 mg/dL (0-0.3); Bilirubin,Total 0.5 mg/dL (0.1-1.0); Blood Urea Nitrogen 17 mg/dL (8-23); Calcium 9.1 mg/dL (8.6-10.4); Carbon Dioxide 31 mmol/L (22-30); Chloride 92 mmol/L (96-108); Globulin 3.8 gm/dL (2.2-3.7); Glomerular Filtration Rate 94; Glucose 107 mg/dL (70-105); Lactate Dehydrogenase 193 U/L (135-225); Phosphorous 2.6 mg/dL (2.5-4.5); Triglycerides 103 mg/dL (<150); Uric Acid 3.3 mg/dL (2.5-8.0)
[2021-08-12] MEDS: INSULIN LISPRO 1 UNIT/0.01 ML UNIT SQ SCH ×4 (08:45→20:52)
[2021-08-12] MEDS: [UNRECOGNIZED DRUG - OTHER] PO SCH (08:48)
[2021-08-12] MEDS: ENOXAPARIN 40 MG/0.4 ML SYRINGE SQ SCH (08:53)
[2021-08-12] MEDS: cefTRIAXone 2 GM in DEXTROSE 5% IN WATER 50 ML IV SCH (08:53)
[2021-08-12] MEDS: hydrOXYzine 25 MG TABLET PO PRN ×2 (08:53→23:17)
[2021-08-12] MEDS: ATORVASTATIN 20 MG TABLET PO SCH (08:53)
[2021-08-12] MEDS: METOPROLOL SUCCINATE 50 MG TAB.XL.24H PO SCH (08:54)
[2021-08-12] MEDS: DOCUSATE SODIUM 100 MG CAPSULE PO SCH ×2 (08:54→20:38)
[2021-08-12] MEDS: POLYETHYLENE GLYCOL 3350 17 GM PACKET PO PRN (08:54)
[2021-08-12] MEDS: VANCOMYCIN 1,500 MG in 0.9 % SODIUM CHLORIDE 500 ML IV SCH (10:27)
--- NOTE | 2021-08-12 11:25 | Orthopedic Progress Note ---
SUBJECTIVE Subjective Patient information: Note initiated : 08/12/21 at 11:22 am Service Date, if different from initiated Date: [] Patient: Blake Bates 66 y/o M admitted on 08/07/21 for right heel pain. Chief Complaint: [no new issues overnight. occasional low grade temps] Constitutional Vitals: Vital Signs Temp Pulse Resp BP Pulse Ox 97.8 F 94 H 14 141/98 94 08/12/21 08:58 08/12/21 07:10 08/12/21 08:58 08/12/21 08:58 08/12/21 08:58 Period Temp Pulse Resp BP Sys/Virgen Pulse Ox Last 24 Hr 97.8 F-100.4 F 89-104 14-26 141-168/72-109 93-96 Intake and Output 08/11/21 08/12/21 08/12/21 21:59 05:59 13:59 Intake Total 500 480 Output Total 975 925 Balance -475 -445 Weight 197 lb 12.8 oz Intake & Output: Intake & Output 08/11/21 08/12/21 08/12/21 21:59 05:59 13:59 Intake Total 500 480 Output Total 975 925 Balance -475 -445 Weight 197 lb 12.8 oz Intake: Oral 500 480 Output: Void Amount 975 925 Other: Meal Dinner Percent of Meal Consumed 100% Feeding Ability Assist with Tray Set Up Urine Appearance Clear Clear Urine Color Bright Yellow Bright Yellow Urine Odor Normal Normal Additional findings Additional findings: alert and oriented right ankle: dressing removed. no new drainage, still some warmth but erythema improving. 30 degree arc of motion with minimal pain. warm well perfused. OBJ DATA Labs CBC & Chem 7: 08/11/21 06:17 08/12/21 05:00 Labs: Abnormal Lab Results 08/12/21 08/11/21 08/10/21 05:00 06:17 06:20 WBC 11.7 H RBC 4.07 L 3.81 L Hgb 10.9 L 10.3 L Hct 35.8 L 32.8 L POC Hct MCHC 30.4 L RDW 16.4 H 16.2 H MPV 10.5 H 10.6 H Lymph % (Auto) 11.2 L 8.8 L [place] % (Auto) 13.4 H 12.2 H Lymph # (Auto) 1.06 L 1.03 L [place] # (Auto) 1.26 H 1.43 H Absolute Neutrophils 9.08 H ESR 121 H Chloride 92 L Carbon Dioxide 31 H POC BUN BUN Glucose 107 H POC Glucose Calcium POC WB Ioniz Calcium Phosphorus GGT 113 H Alkaline Phosphatase 206 H C-Reactive Protein 27.50 H NT-Pro-B Natriuret Pep Albumin Globulin 3.8 H Albumin/Globulin Ratio 0.9 L 08/10/21 08/09/21 08/09/21 06:19 13:13 11:00 WBC RBC Hgb Hct POC Hct 37 L MCHC RDW MPV Lymph % (Auto) [place] % (Auto) Lymph # (Auto) [place] # (Auto) Absolute Neutrophils ESR Chloride Carbon Dioxide POC BUN 29 H BUN 28 H Glucose 115 H POC Glucose 144 H Calcium 8.2 L POC WB Ioniz Calcium 1.09 L Phosphorus 1.6 L GGT 69 H Alkaline Phosphatase C-Reactive Protein 25.30 H NT-Pro-B Natriuret Pep 225.0 H Albumin 3.1 L Globulin Albumin/Globulin Ratio 0.9 L Meds: Medications Acetaminophen (Acetaminophen 325 Mg Tablet) 650 mg PO Q6HP PRN; Protocol PRN Reason: Per Pain Protocol/Fever > 101 Last Admin: 08/09/21 05:40 Dose: 650 mg Documented by: Hydrocodone Bitart/Acetaminophen (Hydrocodone/Apap 5/325mg Tablet) 1 tab PO Q 4HP PRN PRN Reason: PAIN LEVEL 3-6 Last Admin: 08/12/21 08:54 Dose: 1 tab Documented by: Albuterol/Ipratropium (Ipratropium/Albuterol 3 Ml Ampul.Neb) 3 ml NEB Q4HP PRN PRN Reason: Shortness Of Breath Last Admin: 08/08/21 13:05 Dose: 3 ml Documented by: Atorvastatin Calcium (Atorvastatin 20 Mg Tablet) 20 mg PO QDAY [facility] Last Admin: 08/12/21 08:53 Dose: 20 mg Documented by: Dextrose (Dextrose 50% 50 Ml Vial) 0 ml IV UD PRN PRN Reason: Hypoglycemia Diagnostic Test (Pha) (Accu-Chek 1 Each Strip) 1 each FS ACHS [facility] Last Admin: 08/12/21 08:45 Dose: 1 each Documented by: Docusate Sodium (Docusate Sodium 100 Mg Capsule) 100 mg PO BID [facility] Last Admin: 08/12/21 08:54 Dose: 100 mg Documented by: Enoxaparin Sodium (Enoxaparin 40 Mg/0.4 Ml Syringe) 40 mg SQ DAILY [facility] Last Admin: 08/12/21 08:53 Dose: 40 mg Documented by: Glucose (Dextrose 31 Gm Oral.Susp) 15 gm PO PRN PRN PRN Reason: Hypoglycemia Heparin Sodium (Porcine) (Heparin Flush 10 Units/Ml 5 Ml Syringe) 2 ml IV Q12 [facility] Last Admin: 08/12/21 08:45 Dose: Not Given Documented by: Hydroxyzine HCl (Hydroxyzine 25 Mg Tablet) 50 mg PO TIDP PRN PRN Reason: Anxiety Last Admin: 08/12/21 08:53 Dose: 50 mg Documented by: Potassium Chloride 40 meq/ (Dextrose) 520 mls @ 130 mls/hr IV UD PRN PRN Reason: Potassium < 3 Magnesium Sulfate (Magnesium Sulfate) 2 gm in 50 mls @ 50 mls/hr IV UD PRN PRN Reason: Magnesium </= 1.6 Ceftriaxone Sodium 2 gm/ (Dextrose) 50 mls @ 100 mls/hr IV Q24H [facility]; Protocol Last Admin: 08/12/21 08:53 Dose: 100 mls/hr Documented by: Acetaminophen (Ofirmev) 650 mg in 65 mls @ 130 mls/hr IV Q6HP PRN; Protocol PRN Reason: PAIN/FEVER > 101 Vancomycin HCl 1,500 mg/ (Sodium Chloride) 500 mls @ 333.3 mls/hr IV Q24H [facility] Last Admin: 08/12/21 10:27 Dose: 333.3 mls/hr Documented by: Insulin Human Lispro (Insulin Lispro 1 Unit/0.01 Ml Unit) 0 unit SQ ACHS [facility]; Protocol Last Admin: 08/12/21 08:45 Dose: 2 unit Documented by: Labetalol HCl (Labetalol 5 Mg/Ml Ml) 0 mg IV Q2HP PRN PRN Reason: Hypertension Last Admin: 08/11/21 23:26 Dose: 10 mg Documented by: Metoclopramide HCl (Metoclopramide 10 Mg/2 Ml Vial) 10 mg IV Q6HP PRN PRN Reason: Nausea And Vomiting Metoprolol Succinate (Metoprolol Succinate 50 Mg Tab.Xl.24h) 100 mg PO DAILY [facility] Last Admin: 08/12/21 08:54 Dose: 100 mg Documented by: Metoprolol Tartrate (Metoprolol Tartrate 5 Mg/5 Ml Vial) 5 mg IV Q2HP PRN PRN Reason: Tachyarrhythmias HR>110 Morphine Sulfate (Morphine 4 Mg/Ml Vial) 0 mg IV Q3HP PRN PRN Reason: Pain Last Admin: 08/12/21 04:45 Dose: 2 mg Documented by: Ondansetron HCl (Ondansetron 4 Mg/2 Ml Vial) 4 mg IV Q4HP PRN PRN Reason: Nausea And Vomiting Last Admin: 08/10/21 11:59 Dose: 4 mg Documented by: Lorlatinib 100 Mg (Tablet) 1 dose PO DAILY [facility] Last Admin: 08/12/21 08:48 Dose: Not Given Documented by: Polyethylene Glycol (Polyethylene Glycol 3350 17 Gm Packet) 17 gm PO DAILYP PRN PRN Reason: Constipation Last Admin: 08/12/21 08:54 Dose: 17 gm Documented by: Potassium Chloride (Potassium Chloride 20 Meq Tablet) 40 meq PO UD PRN PRN Reason: Potssium is 3-3.5 Potassium Chloride (Potassium Chloride 20 Meq Tablet) 40 meq PO UD PRN PRN Reason: Potassium < 3 Senna (Sennosides 1 Tablet) 2 tab PO DAILYP PRN PRN Reason: Constipation Last Admin: 08/12/21 08:54 Dose: 2 tab Documented by: Sodium Chloride (0.9 % Sodium Chloride 10 Ml Syringe) 10 ml IV Q8 [facility] Last Admin: 08/12/21 04:45 Dose: 10 ml Documented by: Sodium Chloride (0.9 % Sodium Chloride 10 Ml Syringe) 10 ml IV UD PRN PRN Reason: FLUSH Sodium Chloride (0.9 % Sodium Chloride 10 Ml Syringe) 10 ml IV Q12 [facility] Last Admin: 08/12/21 08:55 Dose: Not Given Documented by: Vancomycin HCl (Vancomycin Per Pharmacy) 1 order IV UD [facility]; Protocol A/P Assessment and plan (1) Septic arthritis of ankle: Assessment and plan: POD 3 s/p arthroscopic I&D -- currently ICU status post surgery secondary to pulmonary issues but now stable on facemask O2 -- CRP yesterday decreased by 1/2 yesterday with repeat today -------low grade temp occasionally ---walking boot, non weight bearing -- bld cx- no growth to date -- ankle aspirate- pos gram pos cocci, cx pending including fungal -- No source of infection currently-MRI negative for osteo -- IV abx- follow cultures -- dispo: pending but chart review states pateint intends to d/c home upon discharge. Likely PICC line saturday Time Spent With Patient Time: Status: Acute Time Spent With Patient Time: Total time spent is greater than 50% in coordination of care (as documented) at patient's floor/unit and/or counseling patient:
[2021-08-12] MEDS ORDERED: ACETAMINOPHEN 325 MG TABLET PO SCH (12:15)
[2021-08-12] MEDS: ACETAMINOPHEN 500 MG TABLET PO SCH ×2 (13:14→20:38)
[2021-08-12] MEDS: LABETALOL 5 MG/ML ML IV PRN ×2 (13:40→16:12)
[2021-08-12] MEDS: KETOROLAC 30 MG/ML VIAL IV PRN ×2 (13:58→18:51)
[2021-08-12] MEDS: ACETAMINOPHEN 650 MG/65 ML BAG IV PRN (23:02)
[2021-08-13] MEDS: KETOROLAC 30 MG/ML VIAL IV PRN ×2 (00:51→18:12)
[2021-08-13] MEDS: LABETALOL 5 MG/ML ML IV PRN (04:11)
[2021-08-13] MEDS: ACETAMINOPHEN 500 MG TABLET PO SCH ×3 (04:31→21:12)
[2021-08-13] MEDS: hydrOXYzine 25 MG TABLET PO PRN ×3 (04:31→21:09)
[2021-08-13] MEDS: 0.9 % SODIUM CHLORIDE 10 ML SYRINGE IV SCH ×5 (05:41→21:11)
[2021-08-13] MEDS: INSULIN LISPRO 1 UNIT/0.01 ML UNIT SQ SCH ×4 (07:30→21:10)
[2021-08-13] MEDS: [UNRECOGNIZED DRUG - OTHER] PO SCH (07:31)
[2021-08-13] MEDS: ATORVASTATIN 20 MG TABLET PO SCH (08:42)
[2021-08-13] MEDS: DOCUSATE SODIUM 100 MG CAPSULE PO SCH ×2 (08:42→21:09)
[2021-08-13] MEDS: ENOXAPARIN 40 MG/0.4 ML SYRINGE SQ SCH (08:42)
[2021-08-13] MEDS: METOPROLOL SUCCINATE 50 MG TAB.XL.24H PO SCH (08:44)
[2021-08-13] MEDS: VANCOMYCIN 1,500 MG in 0.9 % SODIUM CHLORIDE 500 ML IV SCH (10:36)
[2021-08-13] MEDS: POLYETHYLENE GLYCOL 3350 17 GM PACKET PO PRN (10:42)
--- NOTE | 2021-08-13 13:11 | Internal Med Progress Note ---
SUBJECTIVE Subjective Patient information: Note initiated : 08/13/21 at 1:08 pm Service Date, if different from initiated Date: [] Patient: Blake Bates 66 y/o M admitted on 08/07/21 for right heel pain. Chief Complaint: [] Interval history: History of present illness: Mr. Bates is a 66 year old male who reported increasing redness pain and sw elling to his right ankle since Saturday.The patient denied recent injury to his right ankle. He has not been able to walk on his right foot because of the pain. He denied fevers and chills. In the ED he is tachycardic but blood pressure was stable. Labs revealed leukocytosis and an markedly elevated CRP. Ultrasound and x-ray were done of the ankle leg showed no DVT but likely tenosynovitis along t he medial side of the ankle. Exam was notable for cellulitis over the right ankle. The patient was discussed with Dr. Simeon who felt no immediate need for joint aspiration and to treat with IV antibiotics. 08/08 Patient feels his ankle is a little bit less painful but still significant pain with any movement. Did have a fever overnight and some sweating. No other new complaints. 08/09 Patient underwent washout of the ankle yesterday. In PACU he was hypoxic and hypercapnic. Concern he may have aspirated some degree during airway management. Patient was placed on BiPAP overnight. Mentation improved this morning. Waiting follow-up blood gas. Patient did cough up a lot of thick phlegm per nurse. Patient does have a bit of a chronic cough and some congestion lately. Does not feel short of breath. But is on oxygen. Other history obtained from a friend who apparently is POA. She says he was diagnosed 5 years ago with metastatic lung cancer was not expected to live much longer than 3 to 6 months. He frequently hallucinates and that is attributed to his cancer medication. He seemed to qualify for oxygen by the cancer center but refused to take home oxygen. She stated that he frequently spits up bloody phlegm. She also stated she also stated that they wanted to do a sleep study on is a suspected obstructive sleep apnea but he refused. 08/10 Patient feels better. Is on 2 L nasal cannula. Realizes he likely need home oxygen. Need to evaluate to see if he is safe to go home or if he needs rehab. 08/11 No new complaints or overnight event. Oxygen requirements 2 to 6 L. Leukocytosis resolved. 08/12 Cultures from right ankle grew MRSA. Continuing Vancomycin IV dosed by pharmacy, discontinued Ceftriaxone. The patient continues to have fevers and CRP is trending up, discussed with orthopedic surgery. Discontinued opioid analgesic medications. 08/13 CRP trending up and procalcitonin markedly elevated, not fevers overnight. The patient feels better today. Vancomycin trough low. Discussed with pharmacy, the plan is to change to twice a day Vancomycin IV dosing. CT chest ordered to evaluate for possible pneumonia that might explain recent fevers and elevated procalcitonin. Review of Systems:afebrile, denies chest pain, denies shortness of breath. Physical Exam Head: Atraumatic, normal inspection. Eyes: normal appearance, no scleral icterus. Neck: full ROM Respiratory: no respiratory distress, on nasal canula oxygen 1 L/min. Cardiovascular: normal rate and rhythm, S1, S2. GI/Abdominal: soft, nontender, no guarding. Extremities: right foot in boot Neurological: CN II-XII intact, intact motor, intact sensation. Psychiatric: normal mood. Skin: warm, normal color Constitutional Vitals: Vital Signs Temp Pulse Resp BP Pulse Ox 97.9 F 72 18 165/91 92 08/13/21 12:02 08/13/21 08:00 08/13/21 12:02 08/13/21 12:02 08/13/21 12:02 Period Temp Pulse Resp BP Sys/Virgen Pulse Ox Last 24 Hr 96.7 F-98.9 F 72-103 15-27 128-173/78-122 88-100 Intake and Output 08/12/21 08/13/21 08/13/21 21:59 05:59 13:59 Intake Total 440 265 860 Output Total 1025 850 550 Balance -585 -585 310 Weight 89.403 kg 89.403 kg Patient Weight 08/14/21 05:59 Weight 89.403 kg Intake & Output: Intake & Output 08/12/21 08/13/21 08/13/21 21:59 05:59 13:59 Intake Total 440 265 860 Output Total 1025 850 550 Balance -585 -585 310 Weight 89.403 kg 89.403 kg Intake: IV 65 500 Vancomycin 1,500 mg In Sodium 500 Chloride 0.9% 500 ml @ 333.3 mls/hr IV Q24H [facility] Rx#: [id number] Oral 440 200 360 Output: Void Amount 1025 850 550 Other: Meal Dinner Breakfast Percent of Meal Consumed 100% 100% Urine Appearance Clear Clear Clear Urine Color Dark Yellow Dark Yellow Light [place] Urine Odor Normal # Bowel Movements 0 OBJ DATA Labs CBC & Chem 7: 08/11/21 06:17 08/12/21 05:00 Labs: Abnormal Lab Results 08/13/21 08/12/21 08/12/21 06:15 16:52 09:05 RBC Hgb Hct MCHC RDW MPV Lymph % (Auto) [place] % (Auto) Lymph # (Auto) [place] # (Auto) ESR Chloride Carbon Dioxide Glucose GGT Alkaline Phosphatase C-Reactive Protein 31.90 H 30.10 H Globulin Albumin/Globulin Ratio Procalcitonin 0.43 H 08/12/21 08/11/21 05:00 06:17 RBC 4.07 L Hgb 10.9 L Hct 35.8 L MCHC 30.4 L RDW 16.4 H MPV 10.5 H Lymph % (Auto) 11.2 L [place] % (Auto) 13.4 H Lymph # (Auto) 1.06 L [place] # (Auto) 1.26 H ESR 121 H Chloride 92 L Carbon Dioxide 31 H Glucose 107 H GGT 113 H Alkaline Phosphatase 206 H C-Reactive Protein 27.50 H Globulin 3.8 H Albumin/Globulin Ratio 0.9 L Procalcitonin Meds: Medications Acetaminophen (Acetaminophen 500 Mg Tablet) 1,000 mg PO Q8H [facility]; Protocol Last Admin: 08/13/21 12:43 Dose: 1,000 mg Documented by: Albuterol/Ipratropium (Ipratropium/Albuterol 3 Ml Ampul.Neb) 3 ml NEB Q4HP PRN PRN Reason: Shortness Of Breath Last Admin: 08/08/21 13:05 Dose: 3 ml Documented by: Atorvastatin Calcium (Atorvastatin 20 Mg Tablet) 20 mg PO QDAY [facility] Last Admin: 08/13/21 08:42 Dose: 20 mg Documented by: Dextrose (Dextrose 50% 50 Ml Vial) 0 ml IV UD PRN PRN Reason: Hypoglycemia Diagnostic Test (Pha) (Accu-Chek 1 Each Strip) 1 each FS ACHS [facility] Last Admin: 08/13/21 11:35 Dose: 1 each Documented by: Docusate Sodium (Docusate Sodium 100 Mg Capsule) 100 mg PO BID [facility] Last Admin: 08/13/21 08:42 Dose: 100 mg Documented by: Enoxaparin Sodium (Enoxaparin 40 Mg/0.4 Ml Syringe) 40 mg SQ DAILY [facility] Last Admin: 08/13/21 08:42 Dose: 40 mg Documented by: Glucose (Dextrose 31 Gm Oral.Susp) 15 gm PO PRN PRN PRN Reason: Hypoglycemia Heparin Sodium (Porcine) (Heparin Flush 10 Units/Ml 5 Ml Syringe) 2 ml IV Q12 [facility] Last Admin: 08/13/21 07:30 Dose: Not Given Documented by: Hydroxyzine HCl (Hydroxyzine 25 Mg Tablet) 50 mg PO TIDP PRN PRN Reason: Anxiety Last Admin: 08/13/21 10:42 Dose: 50 mg Documented by: Potassium Chloride 40 meq/ (Dextrose) 520 mls @ 130 mls/hr IV UD PRN PRN Reason: Potassium < 3 Magnesium Sulfate (Magnesium Sulfate) 2 gm in 50 mls @ 50 mls/hr IV UD PRN PRN Reason: Magnesium </= 1.6 Acetaminophen (Ofirmev) 650 mg in 65 mls @ 130 mls/hr IV Q6HP PRN; Protocol PRN Reason: PAIN/FEVER > 101 Last Infusion: 08/12/21 23:32 Dose: Infused Documented by: Vancomycin HCl 1,000 mg/ (Sodium Chloride) 250 mls @ 250 mls/hr IV Q12H [facility] Insulin Human Lispro (Insulin Lispro 1 Unit/0.01 Ml Unit) 0 unit SQ ACHS [facility]; Protocol Last Admin: 08/13/21 11:36 Dose: Not Given Documented by: Ketorolac Tromethamine (Ketorolac 30 Mg/Ml Vial) 15 mg IV Q6HP PRN PRN Reason: Pain Stop: 08/14/21 12:14 Last Admin: 08/13/21 00:51 Dose: 15 mg Documented by: Labetalol HCl (Labetalol 5 Mg/Ml Ml) 0 mg IV Q2HP PRN PRN Reason: Hypertension Last Admin: 08/13/21 04:11 Dose: 10 mg Documented by: Metoclopramide HCl (Metoclopramide 10 Mg/2 Ml Vial) 10 mg IV Q6HP PRN PRN Reason: Nausea And Vomiting Metoprolol Succinate (Metoprolol Succinate 50 Mg Tab.Xl.24h) 100 mg PO DAILY [facility] Last Admin: 08/13/21 08:44 Dose: 100 mg Documented by: Metoprolol Tartrate (Metoprolol Tartrate 5 Mg/5 Ml Vial) 5 mg IV Q2HP PRN PRN Reason: Tachyarrhythmias HR>110 Ondansetron HCl (Ondansetron 4 Mg/2 Ml Vial) 4 mg IV Q4HP PRN PRN Reason: Nausea And Vomiting Last Admin: 08/10/21 11:59 Dose: 4 mg Documented by: Lorlatinib 100 Mg (Tablet) 1 dose PO DAILY [facility] Last Admin: 08/13/21 07:31 Dose: Not Given Documented by: Polyethylene Glycol (Polyethylene Glycol 3350 17 Gm Packet) 17 gm PO DAILYP PRN PRN Reason: Constipation Last Admin: 08/13/21 10:42 Dose: 17 gm Documented by: Potassium Chloride (Potassium Chloride 20 Meq Tablet) 40 meq PO UD PRN PRN Reason: Potssium is 3-3.5 Potassium Chloride (Potassium Chloride 20 Meq Tablet) 40 meq PO UD PRN PRN Reason: Potassium < 3 Senna (Sennosides 1 Tablet) 2 tab PO DAILYP PRN PRN Reason: Constipation Last Admin: 08/12/21 08:54 Dose: 2 tab Documented by: Sodium Chloride (0.9 % Sodium Chloride 10 Ml Syringe) 10 ml IV Q8 [facility] Last Admin: 08/13/21 05:41 Dose: 10 ml Documented by: Sodium Chloride (0.9 % Sodium Chloride 10 Ml Syringe) 10 ml IV UD PRN PRN Reason: FLUSH Sodium Chloride (0.9 % Sodium Chloride 10 Ml Syringe) 10 ml IV Q12 [facility] Last Admin: 08/13/21 08:44 Dose: Not Given Documented by: Vancomycin HCl (Vancomycin Per Pharmacy) 1 order IV UD [facility]; Protocol A/P Narrative A/P Narrative: A: *Septic Right ankle joint: s/p joint washout -culture grew MRSA *Chronic hypoxic/hypercapnic respiratory failure *Oropharyngeal dysphagia, mild (h/o aspiration per POA): *h/o metastatic NSCLC: follows with [facility] -refused home oxygen recommended by oncology *Probable RENEE: refused recommendation to have sleep study *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 -PICC line -Oxygen supplementation -COVID PANTHER PCR pending -Ortho following -Vistaril for anxiety -Tylenol and Toradol for pain. 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 *h/o visual/auditory hallucinations attributed to his cancer medication: of note pt uses methamphetamines *DM: diet controlled *HTN: *Anemia, chronic: *Substance abuse w/Meth via nasal entry, denies IV: *Anxiety: P: -wean down O2, doubt able to wean off given h/o home O2 recommendation and pulm compromise chronic -MRI right foot -Vanc/Rocephin, will need IV abx for at least 2-weeks followed by or Oral or longer IV course -Ortho following -BC/Aspirate cx pending -vistaril for anxiety -SSI -pt/ot -Dysphagia diet per ST -ppx: lovenox Time Spent With Patient Time: Total time spent is greater than 50% in coordination of care (as documented) at patient's floor/unit and/or counseling patient: QUALITY VTE Deep Vein Thrombosis/Pulmonary Embolism Present on Admission: No
[2021-08-13] MEDS ORDERED: IOPAMIDOL 100 ML BOTTLE IV ONE (14:07)
--- NOTE | 2021-08-13 15:30 | Cat Scan Report ---
History: Lung cancer, evaluate for pneumonia TECHNIQUE: Following injection of intravenous nonionic contrast the chest was imaged during the arterial phase from the thoracic inlet through the diaphragms. Sagittal, coronal and axial MIPS images were created. The radiation exposure was limited using dose reduction technology. FINDINGS: There is moderate elevation of the right diaphragm. Adjacent to this there are thick bands of atelectasis in the right lower lobe with milder involvement in the right middle lobe. There is minor pleural thickening posteriorly in the right lower thorax. Smaller bands of atelectasis are present in the left lower lobe and both upper lobes. Above the major fissure there is a small groundglass alveolar infiltrate in the lingula. There is no left-sided effusion. No pulmonary mass has developed. There is residual soft tissue thickening in the superior mediastinum adjacent to the superior vena cava. This is the site where a tumor had been seen on a prior chest CT on 06/02/16. There is an expandable stent in the superior vena cava. The stent is patent. The soft tissue thickening adjacent to the stent may be scar or nonviable tumor. No new mass has developed. There are a couple small lymph nodes in the left hilum. Largest measures 1 cm. The aorta is normal in caliber and there few scattered calcified plaques. Heart size is normal. There is mild atherosclerotic disease in the left anterior descending coronary. No pericardial effusion is present. There is moderate diffuse fatty infiltration throughout the liver. There is no evidence of liver metastasis. In the neck of the gallbladder there is a cluster of several calcified stones which measure up to 6 x 12 mm in size. Gallbladder wall is not thickened or inflamed and the bile ducts are nondilated. The adrenals are normal without evidence of metastasis. Visualized portions of the pancreas and kidneys are normal. IMPRESSION: Small alveolar infiltrate in the lingula which may be due to mild pneumonia Compressive atelectasis in the right middle and right lower lobes due to chronic elevation of the right diaphragm Soft tissue fullness in the superior mediastinum adjacent to the SVC which may represent nonviable tumor Cholelithiasis Fatty infiltration of the liver Interpreted and Authenticated by: Vadim Bryant 08/13/21
[2021-08-13] MEDS: VANCOMYCIN 1,000 MG in 0.9 % SODIUM CHLORIDE 250 ML IV SCH (21:10)
[2021-08-13] MEDS: ACETAMINOPHEN 650 MG/65 ML BAG IV PRN (23:00)
[2021-08-14] MEDS: KETOROLAC 30 MG/ML VIAL IV PRN ×2 (00:35→10:31)
[2021-08-14] MEDS: hydrOXYzine 25 MG TABLET PO PRN ×3 (00:35→10:32)
[2021-08-14] MEDS: LABETALOL 5 MG/ML ML IV PRN (01:16)
[2021-08-14] MEDS: ACETAMINOPHEN 500 MG TABLET PO SCH ×2 (04:20→13:39)
[2021-08-14] MEDS: 0.9 % SODIUM CHLORIDE 10 ML SYRINGE IV SCH ×3 (04:21→13:40)
--- NOTE | 2021-08-14 06:44 | Orthopedic Progress Note ---
SUBJECTIVE Subjective Patient information: Note initiated : 08/14/21 at 6:38 am Service Date, if different from initiated Date: [] Patient: Blake Bates 66 y/o M admitted on 08/07/21 for right heel pain. Chief Complaint: [no new issues overnight. pain controlled, agreed to rehab facility. afebrile] Constitutional Vitals: Vital Signs Temp Pulse Resp BP Pulse Ox 98.1 F 93 H 12 162/107 91 08/14/21 00:03 08/14/21 05:52 08/14/21 05:52 08/14/21 00:03 08/14/21 05:52 Period Temp Pulse Resp BP Sys/Virgen Pulse Ox Last 24 Hr 96.7 F-98.3 F 72-93 12- 128-169/78-107 87-96 Intake and Output 08/13/21 08/14/21 08/14/21 21:59 05:59 13:59 Intake Total 120 315 Output Total 950 200 Balance -830 115 Weight 189 lb 1.6 oz Intake & Output: Intake & Output 08/13/21 08/14/21 08/14/21 21:59 05:59 13:59 Intake Total 120 315 Output Total 950 200 Balance -830 115 Weight 189 lb 1.6 oz Intake: IV 315 Vancomycin 1,000 mg In Sodium 250 Chloride 0.9% 250 ml @ 250 mls/ hr IV Q12H [facility] Rx#:[id number] Oral 120 Output: Void Amount 950 200 Other: Urine Appearance Clear Clear Urine Color Dark Yellow Dark Yellow Stool Size Small Stool Color Brown Stool Consistency Formed # Bowel Movements 1 Additional findings Additional findings: general: alert, appropriate right ankle: ALISON hose in place. Removed, no drainage about the ankle, still some warmth about the ankle, erthema is still present but less than on presentation. Able to plantar/dorsiflexion ankle without pain. No tenderness with palpation. foot warm well perfused. OBJ DATA Labs CBC & Chem 7: 08/11/21 06:17 08/12/21 05:00 Labs: Abnormal Lab Results 08/13/21 08/12/21 08/12/21 06:15 16:52 09:05 RBC Hgb Hct MCHC RDW MPV Lymph % (Auto) [place] % (Auto) Lymph # (Auto) [place] # (Auto) ESR Chloride Carbon Dioxide Glucose GGT Alkaline Phosphatase C-Reactive Protein 31.90 H 30.10 H Globulin Albumin/Globulin Ratio Procalcitonin 0.43 H 08/12/21 08/11/21 05:00 06:17 RBC 4.07 L Hgb 10.9 L Hct 35.8 L MCHC 30.4 L RDW 16.4 H MPV 10.5 H Lymph % (Auto) 11.2 L [place] % (Auto) 13.4 H Lymph # (Auto) 1.06 L [place] # (Auto) 1.26 H ESR 121 H Chloride 92 L Carbon Dioxide 31 H Glucose 107 H GGT 113 H Alkaline Phosphatase 206 H C-Reactive Protein 27.50 H Globulin 3.8 H Albumin/Globulin Ratio 0.9 L Procalcitonin Meds: Medications Acetaminophen (Acetaminophen 500 Mg Tablet) 1,000 mg PO Q8H [facility]; Protocol Last Admin: 08/14/21 04:20 Dose: 1,000 mg Documented by: Albuterol/Ipratropium (Ipratropium/Albuterol 3 Ml Ampul.Neb) 3 ml NEB Q4HP PRN PRN Reason: Shortness Of Breath Last Admin: 08/08/21 13:05 Dose: 3 ml Documented by: Atorvastatin Calcium (Atorvastatin 20 Mg Tablet) 20 mg PO QDAY [facility] Last Admin: 08/13/21 08:42 Dose: 20 mg Documented by: Dextrose (Dextrose 50% 50 Ml Vial) 0 ml IV UD PRN PRN Reason: Hypoglycemia Diagnostic Test (Pha) (Accu-Chek 1 Each Strip) 1 each FS ACHS [facility] Last Admin: 08/13/21 21:08 Dose: 1 each Documented by: Docusate Sodium (Docusate Sodium 100 Mg Capsule) 100 mg PO BID [facility] Last Admin: 08/13/21 21:09 Dose: 100 mg Documented by: Enoxaparin Sodium (Enoxaparin 40 Mg/0.4 Ml Syringe) 40 mg SQ DAILY [facility] Last Admin: 08/13/21 08:42 Dose: 40 mg Documented by: Glucose (Dextrose 31 Gm Oral.Susp) 15 gm PO PRN PRN PRN Reason: Hypoglycemia Heparin Sodium (Porcine) (Heparin Flush 10 Units/Ml 5 Ml Syringe) 2 ml IV Q12 [facility] Last Admin: 08/13/21 21:11 Dose: Not Given Documented by: Hydroxyzine HCl (Hydroxyzine 25 Mg Tablet) 50 mg PO TIDP PRN PRN Reason: Anxiety Last Admin: 08/14/21 04:20 Dose: 50 mg Documented by: Potassium Chloride 40 meq/ (Dextrose) 520 mls @ 130 mls/hr IV UD PRN PRN Reason: Potassium < 3 Magnesium Sulfate (Magnesium Sulfate) 2 gm in 50 mls @ 50 mls/hr IV UD PRN PRN Reason: Magnesium </= 1.6 Acetaminophen (Ofirmev) 650 mg in 65 mls @ 130 mls/hr IV Q6HP PRN; Protocol PRN Reason: PAIN/FEVER > 101 Last Infusion: 08/13/21 23:30 Dose: Infused Documented by: Vancomycin HCl 1,000 mg/ (Sodium Chloride) 250 mls @ 250 mls/hr IV Q12H [facility] Last Infusion: 08/13/21 22:10 Dose: Infused Documented by: Insulin Human Lispro (Insulin Lispro 1 Unit/0.01 Ml Unit) 0 unit SQ ACHS [facility]; Protocol Last Admin: 08/13/21 21:10 Dose: Not Given Documented by: Ketorolac Tromethamine (Ketorolac 30 Mg/Ml Vial) 15 mg IV Q6HP PRN PRN Reason: Pain Stop: 08/14/21 12:14 Last Admin: 08/14/21 00:35 Dose: 15 mg Documented by: Labetalol HCl (Labetalol 5 Mg/Ml Ml) 0 mg IV Q2HP PRN PRN Reason: Hypertension Last Admin: 08/14/21 01:16 Dose: 10 mg Documented by: Metoclopramide HCl (Metoclopramide 10 Mg/2 Ml Vial) 10 mg IV Q6HP PRN PRN Reason: Nausea And Vomiting Metoprolol Succinate (Metoprolol Succinate 50 Mg Tab.Xl.24h) 100 mg PO DAILY [facility] Last Admin: 08/13/21 08:44 Dose: 100 mg Documented by: Metoprolol Tartrate (Metoprolol Tartrate 5 Mg/5 Ml Vial) 5 mg IV Q2HP PRN PRN Reason: Tachyarrhythmias HR>110 Ondansetron HCl (Ondansetron 4 Mg/2 Ml Vial) 4 mg IV Q4HP PRN PRN Reason: Nausea And Vomiting Last Admin: 08/10/21 11:59 Dose: 4 mg Documented by: Lorlatinib 100 Mg (Tablet) 1 dose PO DAILY [facility] Last Admin: 08/13/21 07:31 Dose: Not Given Documented by: Polyethylene Glycol (Polyethylene Glycol 3350 17 Gm Packet) 17 gm PO DAILYP PRN PRN Reason: Constipation Last Admin: 08/13/21 10:42 Dose: 17 gm Documented by: Potassium Chloride (Potassium Chloride 20 Meq Tablet) 40 meq PO UD PRN PRN Reason: Potssium is 3-3.5 Potassium Chloride (Potassium Chloride 20 Meq Tablet) 40 meq PO UD PRN PRN Reason: Potassium < 3 Senna (Sennosides 1 Tablet) 2 tab PO DAILYP PRN PRN Reason: Constipation Last Admin: 08/12/21 08:54 Dose: 2 tab Documented by: Sodium Chloride (0.9 % Sodium Chloride 10 Ml Syringe) 10 ml IV Q8 [facility] Last Admin: 08/14/21 04:21 Dose: 10 ml Documented by: Sodium Chloride (0.9 % Sodium Chloride 10 Ml Syringe) 10 ml IV UD PRN PRN Reason: FLUSH Sodium Chloride (0.9 % Sodium Chloride 10 Ml Syringe) 10 ml IV Q12 [facility] Last Admin: 08/13/21 21:11 Dose: Not Given Documented by: Vancomycin HCl (Vancomycin Per Pharmacy) 1 order IV UD [facility]; Protocol A/P Assessment and plan (1) Septic arthritis of ankle: Assessment and plan: POD 4 s/p arthroscopic right ankle irrigation and debridement -- NWB with boot as much as tolerated -- CRP is uptrending yeseterday after initial decrease s/p I&D. Ankle continues to improve rather than regress so not inclined to repeat I&D. ------ will continue to monitor and if for some reason continues to increase without other source and ankle continues to improve, consider repeat MRI of ankle. no abscess or osteo on initial scan -- Cx- right ankle MRSA- on IV vanc with low therapeutic vanc trough dose -- oral diet and pain medication -- prophy: lovenox, foot pumps, IS -- Dispo: pending medical stabilization but agreed to acute care facility upon discharge. Status: Acute Time Spent With Patient Time: Total time spent is greater than 50% in coordination of care (as documented) at patient's floor/unit and/or counseling patient:
[2021-08-14] MEDS: INSULIN LISPRO 1 UNIT/0.01 ML UNIT SQ SCH ×3 (06:54→16:42)
[2021-08-14] MEDS ORDERED: LEVOFLOXACIN 750 MG TABLET PO SCH (09:00)
[2021-08-14] MEDS: METOPROLOL SUCCINATE 50 MG TAB.XL.24H PO SCH (09:04)
[2021-08-14] MEDS: DOCUSATE SODIUM 100 MG CAPSULE PO SCH (09:04)
[2021-08-14] MEDS: ENOXAPARIN 40 MG/0.4 ML SYRINGE SQ SCH (09:04)
[2021-08-14] MEDS: ATORVASTATIN 20 MG TABLET PO SCH (09:04)
[2021-08-14] MEDS: VANCOMYCIN 1,000 MG in 0.9 % SODIUM CHLORIDE 250 ML IV SCH (09:48)
[2021-08-14] MEDS: [UNRECOGNIZED DRUG - OTHER] PO SCH (09:54)
--- NOTE | 2021-08-14 12:18 | Internal Med Progress Note ---
SUBJECTIVE Subjective Patient information: Note initiated : 08/14/21 at 12:16 pm Service Date, if different from initiated Date: [] Patient: Blake Bates 66 y/o M admitted on 08/07/21 for right heel pain. Chief Complaint: [] Interval history: History of present illness: Mr. Bates is a 66 year old male who reported increasing redness pain and s welling to his right ankle since Saturday.The patient denied recent injury to his right ankle. He has not been able to walk on his right foot because of the pain. He denied fevers and chills. In the ED he is tachycardic but blood pressure was stable. Labs revealed leukocytosis and an markedly elevated CRP. Ultrasound and x-ray were done of the ankle leg showed no DVT but likely tenosynovitis along the medial side of the ankle. Exam was notable for cellulitis over the right ankle. The patient was discussed with Dr. Simeon who felt no immediate need for joint aspiration and to treat with IV antibiotics. 08/08 Patient feels his ankle is a little bit less painful but still significant pain with any movement. Did have a fever overnight and some sweating. No other new complaints. 08/09 Patient underwent washout of the ankle yesterday. In PACU he was hypoxic and hypercapnic. Concern he may have aspirated some degree during airway management. Patient was placed on BiPAP overnight. Mentation improved this morning. Waiting follow-up blood gas. Patient did cough up a lot of thick phlegm per nurse. Patient does have a bit of a chronic cough and some congestion lately. Does not feel short of breath. But is on oxygen. Other history obtained from a friend who apparently is POA. She says he was diagnosed 5 years ago with metastatic lung cancer was not expected to live much longer than 3 to 6 months. He frequently hallucinates and that is attributed to his cancer medication. He seemed to qualify for oxygen by the cancer center but refused to take home oxygen. She stated that he frequently spits up bloody phlegm. She also stated she also stated that they wanted to do a sleep study on is a suspected obstructive sleep apnea but he refused. 08/10 Patient feels better. Is on 2 L nasal cannula. Realizes he likely need home oxygen. Need to evaluate to see if he is safe to go home or if he needs rehab. 08/11 No new complaints or overnight event. Oxygen requirements 2 to 6 L. Leukocytosis resolved. 08/12 Cultures from right ankle grew MRSA. Continuing Vancomycin IV dosed by pharmacy, discontinued Ceftriaxone. The patient continues to have fevers and CRP is trending up, discussed with orthopedic surgery. Discontinued opioid analgesic medications. 08/13 CRP trending up and procalcitonin markedly elevated, no fevers overnight and the patient feels better today. Vancomycin trough low. Discussed with pharmacy, the plan is to change to twice a day Vancomycin IV dosing. CT chest ordered to evaluate for possible pneumonia that might explain recent fevers and elevated procalcitonin. 08/14 CT chest showed a small alveolar infiltrate in the lingula possibly due to mild pneumonia. Started Levofloxacin PO, plan for 5 days. CRP slightly increased since yesterday. Ankle appears to be healing well, no pain with active or passive movement. Discussed with orthopedic surgery, want to watch CPR trend at least another day. Tentative plan for discharge is home with daily Daptomycin infusions via PICC, weekly labs, home health, and PCP follow up. Physical Exam Head: Atraumatic, normal inspection. Eyes: normal appearance, no scleral icterus. Neck: full ROM Respiratory: no respiratory distress, on nasal canula oxygen 1 L/min. Cardiovascular: normal rate and rhythm, S1, S2. GI/Abdominal: soft, nontender, no guarding. Extremities: right foot in boot Neurological: CN II-XII intact, intact motor, intact sensation. Psychiatric: normal mood. Skin: warm, normal color Constitutional Vitals: Vital Signs Temp Pulse Resp BP Pulse Ox 97.1 F 89 22 150/85 95 08/14/21 12:01 08/14/21 12:11 08/14/21 12:11 08/14/21 12:08/14/21 12:11 Period Temp Pulse Resp BP Sys/Virgen Pulse Ox Last 24 Hr 97.1 F-98.3 F 72-104 12-26 134-202/81-111 87-98 Intake and Output 08/13/21 08/14/21 08/14/21 21:59 05:59 13:59 Intake Total 120 315 Output Total 950 200 200 Balance -830 115 -200 Weight 85.774 kg Intake & Output: Intake & Output 08/13/21 08/14/21 08/14/21 21:59 05:59 13:59 Intake Total 120 315 Output Total 950 200 200 Balance -830 115 -200 Weight 85.774 kg Intake: IV 315 Vancomycin 1,000 mg In Sodium 250 Chloride 0.9% 250 ml @ 250 mls/ hr IV Q12H [facility] Rx#:[id number] Oral 120 Output: Void Amount 950 200 200 Other: Urine Appearance Clear Clear Clear Urine Color Dark Yellow Dark Yellow Light Renetta Urine Odor Normal Stool Size Small Stool Color Brown Stool Consistency Formed # Bowel Movements 1 OBJ DATA Labs CBC & Chem 7: 08/11/21 06:17 08/12/21 05:00 Labs: Abnormal Lab Results 08/13/21 08/12/21 08/12/21 06:15 16:52 09:05 Chloride Carbon Dioxide Glucose GGT Alkaline Phosphatase C-Reactive Protein 31.90 H 30.10 H Globulin Albumin/Globulin Ratio Procalcitonin 0.43 H 08/12/21 05:00 Chloride 92 L Carbon Dioxide 31 H Glucose 107 H GGT 113 H Alkaline Phosphatase 206 H C-Reactive Protein 27.50 H Globulin 3.8 H Albumin/Globulin Ratio 0.9 L Procalcitonin Meds: Medications Acetaminophen (Acetaminophen 500 Mg Tablet) 1,000 mg PO Q8H [facility]; Protocol Last Admin: 08/14/21 04:20 Dose: 1,000 mg Documented by: Albuterol/Ipratropium (Ipratropium/Albuterol 3 Ml Ampul.Neb) 3 ml NEB Q4HP PRN PRN Reason: Shortness Of Breath Last Admin: 08/08/21 13:05 Dose: 3 ml Documented by: Atorvastatin Calcium (Atorvastatin 20 Mg Tablet) 20 mg PO QDAY [facility] Last Admin: 08/14/21 09:04 Dose: 20 mg Documented by: Dextrose (Dextrose 50% 50 Ml Vial) 0 ml IV UD PRN PRN Reason: Hypoglycemia Diagnostic Test (Pha) (Accu-Chek 1 Each Strip) 1 each FS ACHS [facility] Last Admin: 08/14/21 11:20 Dose: 1 each Documented by: Docusate Sodium (Docusate Sodium 100 Mg Capsule) 100 mg PO BID [facility] Last Admin: 08/14/21 09:04 Dose: 100 mg Documented by: Enoxaparin Sodium (Enoxaparin 40 Mg/0.4 Ml Syringe) 40 mg SQ DAILY [facility] Last Admin: 08/14/21 09:04 Dose: 40 mg Documented by: Glucose (Dextrose 31 Gm Oral.Susp) 15 gm PO PRN PRN PRN Reason: Hypoglycemia Heparin Sodium (Porcine) (Heparin Flush 10 Units/Ml 5 Ml Syringe) 2 ml IV Q12 [facility] Last Admin: 08/14/21 09:46 Dose: Not Given Documented by: Hydroxyzine HCl (Hydroxyzine 25 Mg Tablet) 50 mg PO TIDP PRN PRN Reason: Anxiety Last Admin: 08/14/21 10:32 Dose: 50 mg Documented by: Potassium Chloride 40 meq/ (Dextrose) 520 mls @ 130 mls/hr IV UD PRN PRN Reason: Potassium < 3 Magnesium Sulfate (Magnesium Sulfate) 2 gm in 50 mls @ 50 mls/hr IV UD PRN PRN Reason: Magnesium </= 1.6 Acetaminophen (Ofirmev) 650 mg in 65 mls @ 130 mls/hr IV Q6HP PRN; Protocol PRN Reason: PAIN/FEVER > 101 Last Infusion: 08/13/21 23:30 Dose: Infused Documented by: Vancomycin HCl 1,000 mg/ (Sodium Chloride) 250 mls @ 250 mls/hr IV Q12H [facility] Last Admin: 08/14/21 09:48 Dose: 250 mls/hr Documented by: Insulin Human Lispro (Insulin Lispro 1 Unit/0.01 Ml Unit) 0 unit SQ ACHS [facility]; Protocol Last Admin: 08/14/21 06:54 Dose: Not Given Documented by: Labetalol HCl (Labetalol 5 Mg/Ml Ml) 0 mg IV Q2HP PRN PRN Reason: Hypertension Last Admin: 08/14/21 01:16 Dose: 10 mg Documented by: Levofloxacin (Levofloxacin 750 Mg Tablet) 750 mg PO DAILY [facility]; Protocol Stop: 08/19/21 08:59 Last Admin: 08/14/21 09:04 Dose: 750 mg Documented by: Metoclopramide HCl (Metoclopramide 10 Mg/2 Ml Vial) 10 mg IV Q6HP PRN PRN Reason: Nausea And Vomiting Metoprolol Succinate (Metoprolol Succinate 50 Mg Tab.Xl.24h) 100 mg PO DAILY [facility] Last Admin: 08/14/21 09:04 Dose: 100 mg Documented by: Metoprolol Tartrate (Metoprolol Tartrate 5 Mg/5 Ml Vial) 5 mg IV Q2HP PRN PRN Reason: Tachyarrhythmias HR>110 Ondansetron HCl (Ondansetron 4 Mg/2 Ml Vial) 4 mg IV Q4HP PRN PRN Reason: Nausea And Vomiting Last Admin: 08/10/21 11:59 Dose: 4 mg Documented by: Lorlatinib 100 Mg (Tablet) 1 dose PO DAILY [facility] Last Admin: 08/14/21 09:54 Dose: Not Given Documented by: Polyethylene Glycol (Polyethylene Glycol 3350 17 Gm Packet) 17 gm PO DAILYP PRN PRN Reason: Constipation Last Admin: 08/13/21 10:42 Dose: 17 gm Documented by: Potassium Chloride (Potassium Chloride 20 Meq Tablet) 40 meq PO UD PRN PRN Reason: Potssium is 3-3.5 Potassium Chloride (Potassium Chloride 20 Meq Tablet) 40 meq PO UD PRN PRN Reason: Potassium < 3 Senna (Sennosides 1 Tablet) 2 tab PO DAILYP PRN PRN Reason: Constipation Last Admin: 08/12/21 08:54 Dose: 2 tab Documented by: Sodium Chloride (0.9 % Sodium Chloride 10 Ml Syringe) 10 ml IV Q8 [facility] Last Admin: 08/14/21 04:21 Dose: 10 ml Documented by: Sodium Chloride (0.9 % Sodium Chloride 10 Ml Syringe) 10 ml IV UD PRN PRN Reason: FLUSH Sodium Chloride (0.9 % Sodium Chloride 10 Ml Syringe) 10 ml IV Q12 [facility] Last Admin: 08/14/21 09:54 Dose: Not Given Documented by: Vancomycin HCl (Vancomycin Per Pharmacy) 1 order IV UD [facility]; Protocol A/P Narrative A/P Narrative: A: *Septic Right ankle joint: s/p joint washout -culture grew MRSA *Chronic hypoxic/hypercapnic respiratory failure *Oropharyngeal dysphagia, mild (h/o aspiration per POA): *h/o metastatic NSCLC: follows with [facility] -refused home oxygen recommended by oncology *Probable RENEE: refused recommendation to have sleep study *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 -PICC line will likely have to be placed after discharge. -Oxygen supplementation -Ortho following -Vistaril for anxiety -Tylenol and Toradol for pain. -SSI -pt/ot -Dysphagia diet per ST -ppx: lovenox -Disposition: Probably home with daily Daptomycin infusions via PICC for a total of four weeks, weekly CBC, RFP, LFT, CRP, CK, home health and family support. Currently no infectious disease provider available at [facility], will try to get the patient's PCP to follow weekly labs. 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 *h/o visual/auditory hallucinations attributed to his cancer medication: of note pt uses methamphetamines *DM: diet controlled *HTN: *Anemia, chronic: *Substance abuse w/Meth via nasal entry, denies IV: *Anxiety: P: -wean down O2, doubt able to wean off given h/o home O2 recommendation and pulm compromise chronic -MRI right foot -Vanc/Rocephin, will need IV abx for at least 2-weeks followed by or Oral or longer IV course -Ortho following -BC/Aspirate cx pending -vistaril for anxiety -SSI -pt/ot -Dysphagia diet per ST -ppx: lovenox Time Spent With Patient Time: Total time spent is greater than 50% in coordination of care (as documented) at patient's floor/unit and/or counseling patient: QUALITY VTE Deep Vein Thrombosis/Pulmonary Embolism Present on Admission: No
--- NOTE | 2021-08-14 13:41 | Discharge Summary ---
Discharge Provider Provider Patient information: Note initiated : 08/14/21 at 1:40 pm Service Date, if different from initiated Date: [] Patient: Blake Bates 66 y/o M admitted on 08/07/21 for right heel pain. Chief Complaint: [] Date of admission: 08/07/21 17:40 Discharge date: 08/14/21 Primary care physician: Parul Bernardo DO Consults: 08/07/21 Consult to Physician [CONS] Stat Comment: Consulting Provider: Corey Doherty Reason For Exam: Physician to Consult 08/07/21 16:11 Consult to Physician [CONS] Stat Comment: Consulting Provider: Filippo Simeon Reason For Exam: Physician to Consult Discharge Meds Discharge Medications Home Medications cholecalciferol (vitamin D3) 50 mcg (2,000 unit) capsule 2,000 unit PO QDAY 06/23/19 [History Confirmed 08/07/21 Last Taken Unknown] multivitamin,[id number] (Complete Multivitamin) 1 tab PO QDAY 06/23/19 [History Confirmed 08/07/21 Last Taken Unknown] fluticasone propionate 50 mcg/actuation nasal spray,suspension (Flonase Allergy Relief) 1 spray INTRANASAL QDAY #18.2 ml 10/07/19 [Rx Confirmed 08/07/21 Last Taken Unknown] lorlatinib 100 mg tablet 100 mg PO QDAY 07/25/20 [History Confirmed 08/07/21 Last Taken 08/06/21] furosemide 20 mg tablet 20 mg PO QAM #60 tab 03/30/21 [Rx Confirmed 08/07/21 Last Taken 08/06/21] albuterol sulfate 90 mcg/actuation aerosol inhaler 2 puff INHALATION Q6H PRN #8.5 g 04/17/21 [Rx Confirmed 08/07/21 Last Taken 08/06/21] daptomycin 500 mg intravenous solution 500 mg IV Q24H 21 Days #21 ea 08/14/21 [Rx Last Taken Unknown] levofloxacin 750 mg tablet 750 mg PO DAILY 3 Days #3 tab 08/14/21 [Rx Last Taken Unknown] metoprolol succinate 50 mg tablet,extended release 24 hr 100 mg PO DAILY #60 tab 08/14/21 [Rx Last Taken Unknown] COURSE Hospital Course Hospital course: Mr. Bates is a 66 year old male who reported increasing redness pain and swelling to his right ankle since Saturday.The patient denied recent injury to his right ankle. He has not been able to walk on his right foot because of the pain. He denied fevers and chills. In the ED he is tachycardic but blood pressure was stable. Labs revealed leukocytosis and an markedly elevated CRP. Ultrasound and x-ray were done of the ankle leg showed no DVT but likely tenosynovitis along the medial side of the ankle. Exam was notable for cellulitis over the right ankle. The patient was discussed with Dr. Simeon who felt no immediate need for joint aspiration and to treat with IV antibiotics. 08/08 Patient feels his ankle is a little bit less painful but still significant pain with any movement. Did have a fever overnight and some sweating. No other new complaints. 08/09 Patient underwent washout of the ankle yesterday. In PACU he was hypoxic and hypercapnic. Concern he may have aspirated some degree during airway management. Patient was placed on BiPAP overnight. Mentation improved this morning. Waiting follow-up blood gas. Patient did cough up a lot of thick phlegm per nurse. Patient does have a bit of a chronic cough and some congestion lately. Does not feel short of breath. But is on oxygen. Other history obtained from a friend who apparently is POA. She says he was diagnosed 5 years ago with metastatic lung cancer was not expected to live much longer than 3 to 6 months. He frequently hallucinates and that is attributed to his cancer medication. He seemed to qualify for oxygen by the cancer center but refused to take home oxygen. She stated that he frequently spits up bloody phlegm. She also stated she also stated that they wanted to do a sleep study on is a suspected obstructive sleep apnea but he refused. 08/10 Patient feels better. Is on 2 L nasal cannula. Realizes he likely need home oxygen. Need to evaluate to see if he is safe to go home or if he needs rehab. 08/11 No new complaints or overnight event. Oxygen requirements 2 to 6 L. Leukocytosis resolved. 08/12 Cultures from right ankle grew MRSA. Continuing Vancomycin IV dosed by pharmacy, discontinued Ceftriaxone. The patient continues to have fevers and CRP is trending up, discussed with orthopedic surgery. Discontinued opioid analgesic medications. 08/13 CRP trending up and procalcitonin markedly elevated, no fevers overnight and the patient feels better today. Vancomycin trough low. Discussed with pharmacy, the plan is to change to twice a day Vancomycin IV dosing. CT chest ordered to evaluate for possible pneumonia that might explain recent fevers and elevated procalcitonin. 08/14 CT chest showed a small alveolar infiltrate in the lingula possibly due to mild pneumonia. Started Levofloxacin PO, plan for 5 days. CRP slightly increased since yesterday. Ankle appears to be healing well, no pain with active or passive movement. Discussed with orthopedic surgery, want to watch CPR trend at least another day. Tentative plan for discharge is home with daily Daptomycin infusions via PICC, weekly labs, home health, and PCP follow up.The patient later started that he would go home against medical advice. The discharge plan as previously mentioned was hastily arranged. Home oxygen evaluation prior to discharge. There is currently no infectious disease provider available in the [facility] for post hospital follow up. Post hospital follow up; -Follow weekly CBC, CMP, CRP, CK. -Hold statin while on Daptomycin. -Infectious disease referral for retirement antibiotic management. -Follow up with orthopedic surgery. Physical Exam Head: Atraumatic, normal inspection. Eyes: normal appearance, no scleral icterus. Neck: full ROM Respiratory: no respiratory distress, on nasal canula oxygen 1 L/min. Cardiovascular: normal rate and rhythm, S1, S2. GI/Abdominal: soft, nontender, no guarding. Extremities: right foot in boot Neurological: CN II-XII intact, intact motor, intact sensation. Psychiatric: normal mood. Skin: warm, normal color Discharge diagnosis: Septic arthritis Time Spent with Patient Time attestation: Total time spent providing and/or coordinating discharge services: EXAM Constitutional Vitals: Temp Pulse Resp BP Pulse Ox 97.1 F 89 22 150/85 95 08/14/21 12:01 08/14/21 12:11 08/14/21 12:11 08/14/21 12:01 08/14/21 12:11 Discharge Data Data Completed and Pending Labs on day of discharge: Preliminary micro results at discharge 08/08/21 15:39 Gram Stain - Preliminary Ankle - Right Anaerobic Culture - Preliminary Methicillin resistant s.aureus 08/08/21 15:39 Fungal Smear - Preliminary Ankle - Right Fungal Culture - Preliminary Discharge Plan Patient/Caregiver Discharge Instructions Activity: increase activity as tolerated and non-weight bearing Activity Restrictions/Additional Instructions: 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 -OK to shower but do not submerge the ankle in water such as a bath -Non weight bearing on right foot until after follow up with orthopedics -Wear your walking boot for immobilization as much as tolerated -OK to work on moving your ankle up and down, make the alphabet with your foot to work on range of motion exercises -OK to ice your ankle if needed to help with pain -wear your ALISON hose to help improve the swelling about your ankle/foot Continue with a Dysphagia level 6 diet--See information in your discharge packet Follow up with your appointments as scheduled [facility] will contact you to schedule an appointment Prescriptions: New levofloxacin 750 mg Tablet 750 mg PO DAILY 3 Days Qty: 3 0RF metoprolol succinate 50 mg Tablet Extended Release 24 Hr 100 mg PO DAILY Qty: 60 3RF daptomycin 500 mg recon soln 500 mg IV Q24H 21 Days Qty: 21 0RF Rx Instructions: administer over 30 mins Continued furosemide 20 mg tablet 20 mg PO QAM Qty: 60 3RF fluticasone propionate [Flonase Allergy Relief] 50 mcg/actuation spray,suspension 1 spray INTRANASAL QDAY Qty: 18.2 4RF Rx Instructions: administer into each nostril lorlatinib 100 mg tablet 100 mg PO QDAY 0RF cholecalciferol (vitamin D3) 2,000 unit capsule 2,000 unit PO QDAY 0RF Complete Multivitamin tablet 1 tab PO QDAY 0RF albuterol sulfate 90 mcg/actuation HFA aerosol inhaler 2 puff inhalation Q6H PRN (Reason: shortness of breath or wheezing) Qty: 8.5 2RF Discontinued hydrochlorothiazide 12.5 mg tablet 12.5 mg tablet 12.5 mg PO QDAY Qty: 90 1RF atorvastatin 20 mg tablet 60 mg PO QDAY 0RF atorvastatin 20 mg tablet 20 mg PO QDAY 0RF Other Ambulatory Orders: Complete Blood Count (WEEKLY) Timeframe: [id number] Facility: [facility] - Location: Laboratory Ordered By: Quan Bartlett Complete Blood Count (WEEKLY) Timeframe: [id number] Facility: [facility] - Location: Laboratory Ordered By: Quan Bartlett Complete Blood Count (WEEKLY) Timeframe: [id number] Facility: [facility] - Location: Laboratory Ordered By: Quan Bartlett Complete Blood Count (WEEKLY) Timeframe: [id number] Facility: [facility] - Location: Laboratory Ordered By: Quan Bartlett Creatine Kinase (WEEKLY) Timeframe: [id number] Facility: [facility] - Location: Laboratory Ordered By: Quan Bartlett Creatine Kinase (WEEKLY) Timeframe: [id number] Facility: [facility] - Location: Laboratory Ordered By: Quan Bartlett Creatine Kinase (WEEKLY) Timeframe: [id number] Facility: [facility] - Location: Laboratory Ordered By: Quan Bartlett Creatine Kinase (WEEKLY) Timeframe: [id number] Facility: [facility] - Location: Laboratory Ordered By: Quan Bartlett Comprehensive Metabolic Panel (WEEKLY) Timeframe: [id number] Facility: [facility] - Location: Laboratory Ordered By: Quan Bartlett Comprehensive Metabolic Panel (WEEKLY) Timeframe: [id number] Facility: [facility] - Location: Laboratory Ordered By: Quan Bartlett Comprehensive Metabolic Panel (WEEKLY) Timeframe: [id number] Facility: [facility] - Location: Laboratory Ordered By: Quan Bartlett Comprehensive Metabolic Panel (WEEKLY) Timeframe: [id number] Facility: [facility] - Location: Laboratory Ordered By: Quan Bartlett C-Reactive Protein (WEEKLY) Timeframe: [id number] Facility: [facility] - Location: Laboratory Ordered By: Quan Bartlett C-Reactive Protein (WEEKLY) Timeframe: [id number] Facility: [facility] - Location: Laboratory Ordered By: Quan Bartlett C-Reactive Protein (WEEKLY) Timeframe: [id number] Facility: [facility] - Location: Laboratory Ordered By: Quan Bartlett C-Reactive Protein (WEEKLY) Timeframe: [id number] Facility: [facility] - Location: Laboratory Ordered By: Quan Bartlett OT Discharge Order (Routine) Location: None Selected Ordered By: Quan Bartlett Physical Therapy at Discharge - General (Routine) Location: None Selected Ordered By: Quan Bartlett Rollabout (ONCE) Location: None Selected Ordered By: Filippo Simeon Rollabout (ONCE) Location: None Selected Ordered By: Quan Bartlett Walker (ONCE) Location: None Selected Ordered By: Quan Bartlett Follow Up Plan Follow up with: Filippo Simeon MD [Physician] - Parul Bernardo DO [Primary Care Provider] - (Please follow up on weekly CBC, CMP, CRP, and CK while the patient is receiving Daptomycin IV. We do not currently have infectious disease for follow up. ) Patient Disposition: Home Health Service Prognosis: Undetermined Rehab Potential: Fair Overall status at discharge: patient is progressing back to baseline Discharge Orders: Discharge Order (Routine); Ordered 08/14/21 Ordered By: Quan Bartlett QUALITY VTE Deep Vein Thrombosis/Pulmonary Embolism Present on Admission: No
[2021-08-14] MEDS ORDERED: DAPTOmycin 500 MG VIAL IV ONE (13:45)
[2021-08-15 12:49] LABS: Cannabinoid Confirmation Positive
[2021-08-15 14:58] LABS: Opiate Confirmation Positive
[2021-08-20 14:21] LABS: Nucleated Cells,Synovial Fld 31830 /cumm
== END 2021-08-14 16:55 | disposition home health service (06) | DRG 492 ==
LOC: ED 11:51 → MEDSUR 17:40 → ICU 08-08 19:43
PROVIDERS: ADMIT Internal Medicine; ATTEND Internal Medicine